=== PATIENT | male | born 1935 | race Caucasian/White ===

== ENCOUNTER 2018-12-30 09:55 | Inpatient (IN) ==
[2018-12-30 10:59] LABS: URINE SOURCE CLEAN CATCH
[2018-12-30 11:03] LABS: BASO# 0.01 X1000 (0.0-0.2); BASO% 0.1 % (0.0-0.8); HEMATOCRIT 37.6 % (42.0-52.0); HEMOGLOBIN 12.2 g/dL (14.0-18.0); IMM GRAN# 0.07 X1000 (0.0-0.04); IMM GRAN% 0.4 % (0.0-0.5); LYMPH# 1.46 X1000 (1.2-3.4); LYMPH% 8.3 % (20.5-51.1); MCH 30.2 PG (27-31); MCHC 32.4 g/dL (33-37); MCV 93.1 FL (81-99); MONO# 1.35 X1000 (0.11-0.59); MONO% 7.6 % (1.7-9.3); MPV 10.6 FL (7.4-10.4); NEUT# 14.79 X1000 (1.4-6.5); NEUT% 83.6 % (42.2-75.2); PLT 196 X1000 (130-400); RBC 4.04 XMIL (4.7-6.1); RDW 12.6 % (11.5-14.5); WBC 17.68 X1000 (4.8-10.8)
[2018-12-30 11:03] LABS: BILIRUBIN URINE NEGATIVE (NEGATIVE); BLOOD URINE NEGATIVE (NEGATIVE); COLOR YELLOW; GLUCOSE URINE NEGATIVE (NEGATIVE); KETONE URINE NEGATIVE (NEGATIVE); LEUKOCYTES URINE NEGATIVE (NEGATIVE); NITRITE URINE NEGATIVE (NEGATIVE); PROTEIN URINE TRACE mg/dL (NEGATIVE); SP GRAVITY URINE 1.014; TURBIDITY URINE CLEAR (CLEAR); UROBILINOGEN URINE NORMAL (NORMAL)
[2018-12-30 11:05] LABS: UR EPITHELIAL CELLS <10 /HPF (<10); URINE BACTERIA NEGATIVE /HPF; URINE RBC <10 /HPF (<10); URINE WBC <10 /HPF (<10)
[2018-12-30 11:15] LABS: ALB/GLOB RATIO 1.2; ALBUMIN 4.3 g/dL (3.5-5.0); CALCIUM 9.7 mg/dL (8.8-10.2); CREATININE 1.8 mg/dL (0.7-1.2); POTASSIUM 4.2 mmol/L (3.5-5.1); TOTAL BILIRUBIN 0.79 mg/dL (0.20-1.00); TOTAL PROTEIN 7.8 g/dL (6.3-8.3)
[2018-12-30 11:38] LABS: CK INDEX 3.6 (0.0-2.5); CK-MB 10.51 ng/mL (0.0-5.0)
--- NOTE | 2018-12-30 11:46 | EKG Report ---
Test Performed on : 12/30/2018 10:25:02 AM Test Reason : FALL Blood Pressure : / mmHG Vent. Rate : 064 BPM Atrial Rate : 065 BPM P-R Int : 000 ms QRS Dur : 116 ms QT Int : 556 ms P-R-T Axes : 000 -51 -56 degrees QTc Int : 573 ms Ventricular-paced rhythm with frequent AV dual-paced complexes Abnormal ECG When compared with ECG of 08-MAY-2017 05:32, Vent. rate has increased BY 4 BPM Unconfirmed Result
--- NOTE | 2018-12-30 11:49 | Diag Imaging Result Doc PS360 ---
ELBOW COMPLETE RIGHT - 12/30/2018 INDICATION: fall, trauma TECHNIQUE: Three views COMPARISON: 06/15/2014 FINDINGS: Bones are intact and normally aligned. Joint spaces and soft tissues are clear. IMPRESSION: Negative exam. Electronically signed by Momo Fisher 12/30/2018 11:47 AM
--- NOTE | 2018-12-30 11:50 | Diag Imaging Result Doc PS360 ---
ELBOW COMPLETE LEFT - 12/30/2018 INDICATION: fall, trauma TECHNIQUE: Three views COMPARISON: 08/18/2016 FINDINGS: Bones are intact and normally aligned. Joint spaces and soft tissues are clear. IMPRESSION: Negative exam. Electronically signed by Momo Fisher 12/30/2018 11:48 AM
--- NOTE | 2018-12-30 11:51 | Diag Imaging Result Doc PS360 ---
KNEE 3 VIEWS LEFT - 12/30/2018 INDICATION: fall, trauma TECHNIQUE: Three views COMPARISON: None FINDINGS: There has been total knee arthroplasty. Alignment is anatomic. No hardware fracture or loosening. There is advanced peripheral vascular disease of the femoral and popliteal arteries. IMPRESSION: No acute injury. Electronically signed by Momo Fisher 12/30/2018 11:49 AM
--- NOTE | 2018-12-30 11:52 | Diag Imaging Result Doc PS360 ---
KNEE 3 VIEWS RIGHT - 12/30/2018 INDICATION: fall, trauma TECHNIQUE: Three views COMPARISON: None FINDINGS: There has been total knee arthroplasty with patellar resurfacing. No hardware fracture or loosening. There is advanced peripheral vascular disease of the femoral and popliteal arteries. IMPRESSION: No acute injury. Electronically signed by Momo Fisher 12/30/2018 11:49 AM
--- NOTE | 2018-12-30 11:53 | Diag Imaging Result Doc PS360 ---
THORACIC SPINE - 12/30/2018 INDICATION: fall, pain TECHNIQUE: Four views COMPARISON: 05/24/2017 FINDINGS: Alignment is anatomic. Vertebral body heights and intervertebral disc spaces are preserved. No visible fracture or subluxation. Stable advanced multilevel degenerative disc disease. IMPRESSION: Degenerative disc disease. No acute injury. Electronically signed by Momo Fisher 12/30/2018 11:51 AM
[2018-12-30] MEDS ORDERED: ZOFRAN ODT PO ONE (12:48)
[2018-12-30] MEDS ORDERED: ROCEPHIN 1 GM in NS 50 ML IV ONE (13:33)
[2018-12-30] MEDS ORDERED: ASPIRIN PO STA (13:36)
--- NOTE | 2018-12-30 13:54 | Diag Imaging Result Doc PS360 ---
EXAM: CHEST-1 VIEW 12/30/2018 HISTORY: leukocytosis TECHNIQUE: AP portable upright at 1341 COMMENT: There is cardiomegaly and increased pulmonary vascularity. There is interstitial pulmonary edema and questionable alveolar opacity in the right upper lobe and left lower lobe which appears slightly worse than on 05/24/2017. IMPRESSION: Cardiomegaly with pulmonary edema plus minus pneumonia. Electronically signed by Jason Mcdaniel 12/30/2018 1:52 PM
[2018-12-30] MEDS ORDERED: 1/2 NS 1,000 ML IV ONE (13:55)
[2018-12-30] MEDS ORDERED: ROBITUSSIN-DM PO PRN (13:59)
[2018-12-30] MEDS ORDERED: MIRALAX PO PRN (13:59)
[2018-12-30] MEDS ORDERED: TYLENOL PO PRN (13:59)
[2018-12-30] MEDS ORDERED: ALBUTEROL NEB INH PRN (13:59)
--- NOTE | 2018-12-30 14:25 | CARDIOLOGY CONSULTATION ---
DATE: 12/30/2018 REASON FOR CONSULTATION: Cardiology was consulted for abnormal cardiac enzymes. HISTORY OF PRESENT ILLNESS: Mr. Dionicio Hall is an 83-year-old gentleman who has fallen at home at least on 3 occasions, once in his yard, the other time was at home yesterday. He fell at home in his den and laid there overnight ,as he did not want to come to the emergency room, and he could not get up, given his generalized arthritis and he has generalized body aches. His also states that he has had cough with some expectoration which was mucoid to mucopurulent, and he felt feverish. This was yesterday. As far as chest pains are concerned, he complains of generalized body ache and no definite chest discomfort. There was no history of loss of consciousness. He has a permanent pacemaker. As listed below. He does not complain of any focal weakness to suggest a CVA or TIA. He complains of having generalized weakness and lack of energy. REVIEW OF SYSTEMS: A 14 point review of system was done.Gastrointestinal System: There is no history of nausea. There is no history of vomiting. There is no history of hematemesis or melena. Central Nervous System: Generalized weakness. No focal weakness to suggest a CVA or TIA. Genitourinary System: There is no dysuria or hematuria. Respiratory System: As above. Cardiovascular System: Denies chest pain suggestive of angina. However, he has had some occasional episodes of chest pain in the past. HOME MEDICATION: List includes amlodipine 10 mg a day. Atorvastatin 40. Hydralazine 50 mg 3 times a day. Clonidine 0.1 twice daily. Isosorbide dinitrate 60 mg 3 times a day. Advair Diskus. Metoprolol 25 mg b.i.d. Fish oil concentrate 1000 mg. Enteric-coated aspirin 325 mg a day. Spironolactone 25. Finasteride 5. Lisinopril 5 b.i.d. Bicalutamide 50 mg a day. Nebulizers. Baclofen. Duloxetine 30 mg daily. PAST MEDICAL HISTORY: 1. The patient has a permanent atrial fibrillation status post [employer] pacemaker implanted 12/16/2011. The pacemaker interrogation on 11/19/2018 revealed appropriate function. 2. Last echocardiogram was on 07/18/2018. Normal left ventricular systolic function 65% to 70% with mild to moderate aortic stenosis. There was mild mitral regurgitation. Mild tricuspid regurgitation. There is no pericardial effusion. 3. He had a Cardiolite stress test done in July 2018, which revealed essentially normal post- stress myocardial perfusion. There is no evidence of ischemia. 4. History of diastolic dysfunction, diastolic heart failure. 5. Pneumonia, 2016. 6. COPD. 7. History of takotsubo syndrome in the past. 8. Sick sinus syndrome. 9. History of atrial fibrillation. Has had GI bleeding 11/11/2014. Since then, he has not been on anticoagulation therapy. 10. Carotid disease status post left carotid endarterectomy. 11. Renal insufficiency. 12. Sleep apnea. 13. Generalized osteoarthritis with thoracolumbar spondylosis. 14. History of TURP in the past. 15. Last cardiac catheterization, 08/02/2011. Patient has got proximal mid left anterior descending artery nonobstructive stenosis. PHYSICAL EXAMINATION: Blood pressure was 146/75. First and second heart sounds were heard. Jugular venous pressure was normal. There was a soft systolic murmur. Respiratory System: Distant breath sounds. A few scattered wheezes noted. Abdomen was soft, nontender. There was no guarding or rigidity. Bowel sounds were heard. Central Nervous System: Alert, oriented. Was moving all 4 extremities. Examination of his extremities revealed some bruising on his lopez and his hip. DIAGNOSTIC STUDIES: Sodium 140, potassium 4.2, BUN 43 creatinine 1.8. CK 292, CK index of 3.6 CK- MB of 10.51, troponin abnormal at 0.743. WBC 7.68, hemoglobin 12.2, hematocrit 37.6, platelet count of 196. Urine examination unremarkable. Elbow and knee x-rays were done which were negative. Thoracic spine x-ray revealed degenerative changes. No acute injury. ASSESSMENT AND PLAN: 1. Mr. Dionicio Hall is an 83-year-old gentleman with chronic atrial fibrillation, history of gastrointestinal bleed in the past, permanent pacemaker implantation, diastolic heart failure, generalized arthritis, peripheral vascular disease status post left carotid endarterectomy, chronic renal insufficiency, gout, benign prostatic hypertrophy. He comes with complaints of having fallen on it on 3 occasions. Yesterday, he was noted to be febrile by his family and lay on in the den overnight as he had fallen. He also had complained of cough with some expectoration. From a cardiac standpoint, his cardiac enzymes are abnormal. Electrocardiogram revealed a paced rhythm. However compared to previous electrocardiogram, there was T-wave inversion in the anterior leads. He does not complain of chest pain. Given the extent of cardiac enzymes, I cannot rule out a non-Q-wave myocardial infarction. We will get serial cardiac enzymes. We will get an echocardiogram to assess cardiac and valvular function. We will restart all his home medications in addition to aspirin. 2. He has renal insufficiency which has been chronic with worsening of his renal function. He is probably dehydrated we will give him 1 L of IV fluids, gentle hydration. 3. He was noted to be disoriented today by his family as well, and given his cough with mucoid to mucopurulent expectoration with elevated white count, he may have associated respiratory tract infection so we will get a CT scan without contrast of his chest and CT scan of his head as well. 4. Hypertension. Continue with his home medications. We will hold his lisinopril and spironolactone at the present time. We will continue with his beta blockers. 5. He has chronic obstructive pulmonary disease and inhalers. Would recommend continue with his medications. 6. Hyperlipidemia. As he is on atorvastatin, would recommend continuing that medication. Thank you for the consult. We will follow hospital course. cc: Deondre Person MD
--- NOTE | 2018-12-30 14:27 | Diag Imaging Result Doc PS360 ---
EXAM: CT HEAD W/O CONTRAST 12/30/2018 HISTORY: confusion, falls TECHNIQUE: This exam was performed using automated exposure control, adjustment of mA or kV according to patient size, and/or use of iterative reconstruction technique. COMMENT: There are calcifications in the vertebral and internal carotid arteries. There is moderate generalized cerebral atrophy. There is no evidence of mass effect, bleed, or abnormal extra-axial fluid collection. Compared to the previous examination of 06/17/2014, the ventricular size has increased slightly with the atrium of the left lateral ventricle measuring 22 mm compared to slightly less than 18 mm previously. The third ventricle has not changed appreciably in size. The fourth ventricle is if anything somewhat smaller than previously. IMPRESSION: Slightly increased size of the lateral ventricles compared to 06/17/2014. This may be attributable to slightly increased cerebral atrophy, however the possibility of normal pressure hydrocephalus cannot be entirely excluded. Electronically signed by Jason Mcdaniel 12/30/2018 2:24 PM
--- NOTE | 2018-12-30 14:30 | Diag Imaging Result Doc PS360 ---
EXAM: CT THORAX W/O CONTRAST 12/30/2018 HISTORY: Dyspnea, cough, fever TECHNIQUE: This exam was performed using automated exposure control, adjustment of mA or kV according to patient size, and/or use of iterative reconstruction technique. COMMENT: There are patchy groundglass opacities bilaterally but particularly in the right upper lobe and left lower lobe. There were similar opacities present on the previous study of 06/09/2016 although in a different distribution predominantly on the left at that time. There are small bilateral pleural effusions which are somewhat larger than on the previous study. There is aorticopulmonary window and precarinal adenopathy. This is slightly worse than on the previous study. One of the precarinal nodes now measures almost 16 mm in anterior posterior dimension versus less than 14 mm previously. There is extensive coronary calcification and cardiomegaly. There is a pacemaker with a lead in the right ventricle. The regional skeleton is stable in appearance. IMPRESSION: Patchy pneumonia. Worsened mediastinal adenopathy. Bilateral pleural effusions. Electronically signed by Jason Mcdaniel 12/30/2018 2:28 PM
--- NOTE | 2018-12-30 17:23 | HISTORY AND PHYSICAL ---
CHIEF COMPLAINT: Falls. HISTORY OF PRESENT ILLNESS: The patient is an 83-year-old white male followed in my medical practice, who presented to the ER by ambulance this morning. and daughter relate most of the history as patient has had some mild confusion. He is able to add quite a bit of information as well but he is a poor historian. There is a 2-week history of increasing cough, productive initially of some green phlegm and some increasing shortness of breath, especially over the past 3 days, and cough has been slightly productive of some bloody phlegm in the past 3 days per patient report. He may have had some fever for 2 to 3 days. He has had frequent falls over the last 2 weeks, the last 1 occurring last evening where he fell in his bedroom and could not get off of the floor. His passed him a blanket and a pillow as he could not get himself up and he refused his to call the ambulance for evaluation. He did allow that this morning as he could not get up. He has had some mild shortness of breath as well. MEDICATIONS: Prior to admission are Norvasc 10 mg p.o. daily, Lipitor 40 mg p.o. at bedtime, hydralazine 50 mg t.i.d., Casodex, clonidine 0.1 mg p.o. b.i.d., Icar C 1 p.o. b.i.d., isosorbide dinitrate 60 mg p.o. t.i.d., Advair 250/50 one puff b.i.d., metoprolol 25 mg p.o. b.i.d., fish oil 1000 mg p.o. daily, aspirin 325 mg p.o. daily, Aldactone 25 mg p.o. daily, Proscar 5 mg p.o. daily, lisinopril 5 mg p.o. b.i.d., MiraLAX 17 g in 8 ounces of water daily, albuterol via nebulizer q.4 hours p.r.n. wheezes or cough, garlic 1 p.o. daily, Osteo Bi-Flex at bedtime, baclofen 10 mg half a tablet p.o. t.i.d., Cymbalta 30 mg p.o. daily. ALLERGIES: NKDA. PAST MEDICAL HISTORY: 1. Hypertension, diagnosed in 1984. 2. Chronic atrial fibrillation, diagnosed 1997. 3. CHF. 4. Osteoarthritis. 5. BPH. 6. Mild right renal artery stenosis. 7. Moderate coronary artery disease, diagnosed July 2008. 8. Hyperlipidemia. 9. CLEMENCIA on CPAP 2011. 10. Permanent pacemaker. 11. Vitamin B12 deficiency, on chronic monthly injections. 12. Moderate left carotid stenosis, diagnosed June 2012. 13. 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 14. Chronic renal insufficiency. 15. Prostate cancer, diagnosed May 2017 with chemotherapy treatment. 16. Rbdu-dy-jxkjsxmd aortic stenosis, diagnosed July 2018. PAST SURGICAL HISTORY: 1. Left knee arthroscopy. 2. Left TKR 2005. 3. Right TKR. 4. Left carotid endarterectomy 2009. 5. Excision of SCC left forearm April 2013. 6. TURP May 2017. IMMUNIZATIONS: Pneumovax 23 given March 2004 and March 2009, Prevnar 13 given May 05, 2015, Td given August 2016, influenza given April 2018. FAMILY HISTORY: Notable for hypertension in his mother and brother. No diabetes or MIs in the family. Sister with gallbladder cancer. Mother with skin cancer. Stroke in his grandfather at age 70. SOCIAL HISTORY: The patient lives in [place]. He is x2. Quit smoking in 1991 but has a 55 pack year history of smoking. Has 3 children and 4 step children. 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 Occasional wine intake. REVIEW OF SYSTEMS: As above. PHYSICAL EXAMINATION: VITAL SIGNS: Afebrile, pulse 75, respirations 28, blood pressure 146/88, O2 saturation 88 to 90% on room air. GENERAL: Mild to moderately obese white male. SKIN: Abrasion prominent to the right knee. No signs of infection there. Chronic venous stasis dermatitis with redness over his left lopez and lower extremity, not severe. Bruising diffuse over his arms and somewhat over his legs, but mainly over the arms. HEENT: PERRL, EOMI. Sclerae anicteric. OP no redness. Tongue in the midline. NECK: No LA, TMG, or bruits. Minimal JVD. CV: Irregularly irregular. LUNGS: With rhonchi, crackles, and wheezes bilaterally, right greater than left. BACK: NT. ABDOMEN: Soft, protuberant, NT, ND. No mass. No HSM. GENITOURINARY/RECTAL: Deferred. EXTREMITIES: No major lower extremity edema. OA changes of knees and diffuse noted. NEUROLOGIC: Cranial nerves 2-12 are intact. He moves all extremities well. No focal deficits identified but the patient may be minimally confused. LAB DATA: Shows white count of 17.68, hemoglobin 12.2, hematocrit 37.6, MCV 93, platelets 196,000, neutrophils 83.6, lymphocytes 8.3, monocytes 7.6. Sodium 142, potassium 4.2, chloride 19, BUN 43, creatinine 1.8, which is actually down from his baseline of around 2.1, glucose 142, calcium 9.7, total bilirubin 0.79, AST 27, ALT 12, alkaline phosphatase 70. Total CK 292, CK index 3.6, CK-MB 10.5. Troponin 0.743. ProBNP greater than 35,000. Total protein 7.8, albumin 4.3. Urinalysis is negative. CT scan of the head without contrast reveals slightly increased size of the lateral ventricles compared to June 2014, possibly attributable to increased cerebral atrophy; however, possibility of normal-pressure hydrocephalus cannot be entirely excluded. Chest x-ray reveals cardiomegaly with pulmonary edema plus-minus pneumonia. CT thorax reveals patchy pneumonia, worsened mediastinal adenopathy, bilateral pleural effusions. EKG shows ventricular paced rhythm with atrial fibrillation, no RVR. Thoracic spine x-ray, degenerative disk disease, no acute injury. Elbow x-rays bilaterally negative. Bilateral knee x-rays negative. ASSESSMENT: 1. Frequent falls. 2. Elevated cardiac enzymes and troponin level. 3. Bilateral pneumonia. 4. Congestive heart failure. 5. Chronic atrial fibrillation, not on anticoagulation due to history of frequent falls. 6. Venous stasis dermatitis, left lower extremity. 7. Abrasions, right knee. 8. Multiple contusions. 9. Permanent pacemaker. 10. Moderate coronary artery disease with negative stress testing by Cardiology, Dr. Melendez, in the past 6 months. 11. Hypertension. 12. Hyperlipidemia. 13. Chronic renal insufficiency with history of mild right renal artery stenosis. 14. History of carotid stenosis, status post left CEA 2009. 15. Prostate cancer, on Casodex per Dr. Velasco. 16. Mild to moderate aortic stenosis. 17. Obstructive sleep apnea, on CPAP. 18. Osteoarthritis. PLAN: The patient has received Rocephin injection in the emergency room. We will check blood cultures x2. Serial cardiac enzymes and troponin levels have been ordered by Cardiology who have seen the patient in consultation, appreciate their care immensely. Continue his home medications. We will give him DuoNeb nebulizer treatments. Continue his Advair. Start low-dose Solu-Medrol IV. We will continue antibiotics but may broaden out coverage at this point. cc: Doron Rowe MD
[2018-12-30] MEDS: ISORDIL PO SCH (17:33)
[2018-12-30] MEDS: NORVASC PO SCH (17:34)
[2018-12-30] MEDS: SOLU-MEDROL IV SCH (17:35)
[2018-12-30] MEDS: LEVAQUIN 250 MG/D5W 250 MG/50 ML IVPB IV SCH (17:35)
[2018-12-30] MEDS: APRESOLINE PO SCH (17:37)
[2018-12-30] MEDS: LIORESAL PO SCH (17:37)
[2018-12-30 18:42] LABS: CK INDEX 3.3 (0.0-2.5); CK-MB 10.8 ng/mL (0.0-5.0)
[2018-12-30] MEDS ORDERED: LASIX IV ONE ×2 (18:56→23:45)
[2018-12-30] MEDS: DUONEB (A & A) INH SCH ×2 (20:10→23:52)
[2018-12-30] MEDS: ADVAIR 250/50 DISKUS INH SCH (20:35)
[2018-12-30] MEDS ORDERED: CATAPRES PO SCH (21:00)
[2018-12-30] MEDS ORDERED: LIPITOR PO SCH (21:00)
[2018-12-30] MEDS ORDERED: LOPRESSOR PO SCH ×2 (21:00)
--- NOTE | 2018-12-30 23:38 | ECHO REPORT ---
ORDER DATE: 12/30/2018 MEASUREMENTS: Septal thickness 1.4, left ventricular internal diameter in diastole 5.6, left atrium 4.9, aortic root 3.5. SUMMARY: 1. Technically difficult study due to limited acoustic window quality. 2. Moderate sclerotic change of trileaflet aortic valve demonstrated with reduced aortic valve leaflet mobility. The peak gradient across aortic valve is 45 mmHg with a mean gradient of 20 mmHg. The calculated aortic valve area by Doppler is 1.1 cm2. Moderate aortic stenosis is suggested. There is trace aortic regurgitation. Mitral and tricuspid valves are without evidence of structural abnormality while pulmonic valve is not well demonstrated. There is mild mitral regurgitation and mild tricuspid regurgitation. Estimated systolic PA pressure by Doppler is 55 to 60 mmHg suggesting moderate pulmonary hypertension. The aortic root is normal in size. 3. Upper normal left ventricular chamber size with mild concentric left hypertrophy is suggested. Estimated left ejection fraction is 30 to 35 percent in setting of akinesis of the mid to apical anteroseptal region, mid to apical anterior wall, mid to apical inferior wall and mid to apical inferolateral wall. The apex is akinetic as well. Mild to moderate biatrial enlargement is demonstrated. The right ventricle is normal in size with grossly preserved right ventricular systolic function. Pacemaker lead is evident in right ventricle. 4. No pericardial effusion. 5. Appearance of inferior vena cava suggests normal central venous pressure. 6. Rhythm during study appears to be atrial fibrillation. cc: MD Chelle Telles PA Stephen W. Harbin, MD
[2018-12-31] MEDS: PROSCAR PO SCH ×2 (00:41→20:22)
[2018-12-31] MEDS: ICAR-C PO SCH ×3 (00:41→20:21)
[2018-12-31] MEDS: LOPRESSOR PO SCH ×4 (00:42→20:22)
[2018-12-31] MEDS: LOVENOX SUBQ SCH ×2 (00:42→12:32)
[2018-12-31] MEDS: PRINIVIL PO SCH ×2 (00:42→10:37)
[2018-12-31] MEDS: LIPITOR PO SCH ×2 (00:42→20:21)
[2018-12-31] MEDS: GLUCOSAMINE 500 MG/CHONDROITIN 400 MG PO SCH ×2 (00:42→20:22)
[2018-12-31] MEDS: HUMULIN R SUBQ SCH ×5 (00:57→20:57)
[2018-12-31] MEDS: SOLU-MEDROL IV SCH ×3 (00:57→16:16)
[2018-12-31 02:12] LABS: CK INDEX 3.9 (0.0-2.5); CK-MB 10.28 ng/mL (0.0-5.0)
[2018-12-31] MEDS: DUONEB (A & A) INH SCH ×6 (03:41→23:15)
--- NOTE | 2018-12-31 07:37 | EKG Report ---
Test Performed on : 12/31/2018 07:17:24 AM Test Reason : dyspnea Blood Pressure : / mmHG Vent. Rate : 060 BPM Atrial Rate : 060 BPM P-R Int : 000 ms QRS Dur : 212 ms QT Int : 648 ms P-R-T Axes : 000 -80 223 degrees QTc Int : 648 ms Wide QRS rhythm. Left axis deviation Left ventricular hypertrophy with QRS widening Possible Lateral infarct , age undetermined Inferior infarct , age undetermined Abnormal ECG When compared with ECG of 30-DEC-2018 10:25, (Unconfirmed) Wide QRS rhythm. has replaced Electronic ventricular pacemaker Confirmed by Antonieta GROSSMAN, Corby Acuna ([id number]) on 12/31/2018 5:31:12 PM
[2018-12-31 07:43] LABS: BASO# 0.01 X1000 (0.0-0.2); BASO% 0.1 % (0.0-0.8); HEMATOCRIT 34.2 % (42.0-52.0); IMM GRAN# 0.03 X1000 (0.0-0.04); IMM GRAN% 0.2 % (0.0-0.5); LYMPH% 5.5 % (20.5-51.1); MCH 30.1 PG (27-31); MCHC 32.2 g/dL (33-37); MCV 93.4 FL (81-99); MONO# 0.23 X1000 (0.11-0.59); MONO% 1.8 % (1.7-9.3); MPV 10.6 FL (7.4-10.4); NEUT# 11.66 X1000 (1.4-6.5); NEUT% 92.4 % (42.2-75.2); PLT 179 X1000 (130-400); RBC 3.66 XMIL (4.7-6.1); RDW 12.4 % (11.5-14.5); WBC 12.63 X1000 (4.8-10.8)
[2018-12-31] MEDS: ADVAIR 250/50 DISKUS INH SCH ×2 (07:53→19:20)
[2018-12-31 08:01] LABS: CALCIUM 9.2 mg/dL (8.8-10.2); CREATININE 2.3 mg/dL (0.7-1.2); MAGNESIUM 2.4 mg/dL (1.5-2.7); POTASSIUM 4.4 mmol/L (3.5-5.1)
[2018-12-31 08:25] LABS: BANDS 2 % (0-1); HYPOCHROM 1+; LYMPHS 14 % (21-51); POIKILOCYTOSIS 1+; SEGS 84 % (42-75)
[2018-12-31] MEDS ORDERED: ALDACTONE PO SCH (09:00)
[2018-12-31] MEDS ORDERED: NORVASC PO SCH (09:00)
[2018-12-31] MEDS ORDERED: ASPIRIN PO SCH (09:00)
[2018-12-31] MEDS ORDERED: GARLIC PO SCH (09:00)
[2018-12-31] MEDS: CASODEX PO SCH (10:34)
[2018-12-31] MEDS: NORVASC PO SCH (10:35)
[2018-12-31] MEDS: CYMBALTA PO SCH (10:35)
[2018-12-31] MEDS: APRESOLINE PO SCH (10:35)
[2018-12-31] MEDS: FISH OIL CONCENTRATE PO SCH (10:35)
[2018-12-31] MEDS: LIORESAL PO SCH ×3 (10:36→20:24)
[2018-12-31] MEDS: ASPIRIN PO SCH (10:40)
--- NOTE | 2018-12-31 11:32 | PROGRESS NOTE ---
DATE: 12/31/2018 SUBJECTIVE: Patient feels better improvement in breathing noted. Blood pressure running low in the 90s. OBJECTIVE: T-max 100.6 degrees, T current 97.5, pulse 76, respirations 16, blood pressure 93/53, and O2 saturation on 3 L 95% CV: Irregularly irregular. Lungs: Mild crackles bilaterally, but much improved. Abdomen: Soft, protuberant, and nontender. Extremities: No edema. Venous stasis dermatitis left lopez noted. Abrasion right knee noted healing without signs of infection. Neurologic: Nonfocal. Cranial nerves intact. LABORATORY: Sodium 140, potassium 4.4, chloride 107, CO2 of 19, BUN 61, creatinine 2.3, glucose 193, calcium 9.2, and magnesium 2.4. White count down from 17 to 12.6, hemoglobin 11, platelets 179,000, neutrophils 92, and lymphocytes 5.5. Cardiac enzymes show total CKs up to 329, CK-MB 10.8. CK index 3.3. Troponin remains elevated at 0.72. ProBNP yesterday greater than 35,000. Urinalysis negative. Echocardiogram done last evening reveals EF of 30 to 35 percent with moderate , mild MR and TR, moderate pulmonary hypertension, akinesis of the mid to apical anteroseptal region, mid to apical anterior wall, mid apical inferior wall, and mid to apical inferolateral wall apex akinetic as well. Mild to mild to moderate biatrial enlargement. LV is normal in size and grossly preserved right ventricular systolic function. Pacemaker in place ASSESSMENT: 1. Bilateral pneumonia. 2. Acute on chronic systolic congestive heart failure. 3. Elevated cardiac enzymes and troponin level followed by Cardiology. 4. Frequent falls. 5. Moderate aortic stenosis. 6. Mild MR and TR. 7. Chronic atrial fibrillation, off anticoagulation due to frequent falls, now on full dose Lovenox per Cardiology. 8. Venous stasis dermatitis left lower extremity. 9. Right knee abrasion. 10. Multiple contusions. 11. Permanent pacemaker. 12. Moderate CAD. 13. Hypertension. 14. Hyperlipidemia. 15. Chronic renal insufficiency with baseline creatinine around 2.1. 16. History of mild renal artery stenosis on the right. 17. History of carotid stenosis on the left, status post CEA 2009. 18. Prostate cancer on Casodex per Dr. Velasco. 19. CLEMENCIA on CPAP. 20. Osteoarthritis. PLAN: Continue nebulizer treatments of DuoNeb's. Continue Rocephin. We are holding his Norvasc and hydralazine and lisinopril at this time. We will continue the metoprolol and Lasix, Imdur and Lovenox as per Cardiology. Continue Advair and Robitussin DM. We are monitoring his blood sugars and give him SSI as required due to the steroids that were given him as well, and that has seemed to help quite a bit. We will repeat chest x-ray and follow his labs again in the morning. cc: Doron Rowe MD
--- NOTE | 2018-12-31 11:32 | Diag Imaging Result Doc PS360 ---
CHEST-PORTABLE - 12/31/2018 INDICATION: chf/pna COMPARISON: 12/30/2018 FINDINGS: Stable pacemaker. Stable significant cardiomegaly and pulmonary vascular congestion. There is a focal infiltrate in the left lung base stable from prior. There may also be interstitial pulmonary edema. IMPRESSION: No change from prior. Electronically signed by Momo Fisher 12/31/2018 11:30 AM
[2018-12-31] MEDS: PATIENT'S OWN MED PO SCH (11:52)
[2018-12-31] MEDS: ISORDIL PO SCH ×3 (12:32→20:29)
[2018-12-31] MEDS: ROCEPHIN 1 GM in NS 50 ML IV SCH ×2 (12:38→15:43)
--- NOTE | 2018-12-31 15:01 | CARDIOLOGY PROGRESS NOTE ---
DATE: 12/31/2018 SUBJECTIVE: Patient feels better. His breathing has improved. Does not complain of having any chest pain. He mainly complains of having severe joint pains on both sides on his feet and knees. His shortness of breath has also improved. Does not complain of any palpitations. OBJECTIVE: Vital signs: T-max was 100 degrees, current temperature 97.5 degrees, blood pressure 93/53, oxygen saturations 95% on room air. Cardiovascular: First and second heart sounds were heard. There was a soft systolic murmur. Lungs: There were crackles bilaterally scattered. Abdomen: Soft, nontender. There was no guarding or rigidity. Bowel sounds were heard. Extremities: No pedal edema. Central nervous system: Alert, oriented. Was moving all 4 extremities. LABORATORY EXAMINATION AND DIAGNOSTICS: Revealed a sodium 140, potassium 4.4, BUN 61, creatinine 2.3, glucose was 193. Magnesium 2.4. Cardiac enzymes: CK is 329, CK-MB 10.8, CK index of 3.3, troponin elevated at 0.72[place] [address]. Echocardiogram revealed ejection fraction of 30 to 35 percent with moderate aortic stenosis. There was mild apical anteroseptal hypokinesis. CT of the chest revealed patchy pneumonia with bilateral pleural effusion. Opacities noted were similar to studies on 06/09/2016. However, there is patchy pneumonia in the right upper lobe and the left upper lobe. PROBLEM LIST: 1. Bilaterally patchy pneumonia, on antibiotics. 2. The patient has had frequent falls. 3. Moderate aortic stenosis. 4. Non Q-wave myocardial infarction with left ventricular dysfunction, a change from recent echocardiogram done in July 2008. The patient has non-Q-wave myocardial infarction. I had a detailed discussion with patient's son in addition with the patient regarding further testing. At the present time, patient does not complain of chest pain and he would like to continue with medical management. He wants to defer invasive angiography at the present time. 5. He has a permanent pacemaker. 6. Chronic renal insufficiency with an increase in BUN to 61, baseline creatinine around 2. 7. History of carotid stenosis of the left status post carotid endarterectomy 2009. 8. Prostate cancer, on Casodex. 9. Multiple generalized joint pains in his lower extremities, ankles, long- standing. RECOMMENDATIONS: 1. From a cardiac standpoint, his blood pressure was low. We will discontinue his clonidine, amlodipine and LUNA inhibitors as his renal function has worsened. He was given Lasix 40 mg IV given his pleural effusions as well. We will continue with aspirin 81 mg a day. He has had GI bleeding in the past. We will put him on Protonix. I will also place him on Plavix 75 mg, given nonqmi, a day and decrease his Lovenox for DVT prophylaxis. 2. Hypertension. Changes to medications as above given his low blood pressure. 3. Chronic obstructive pulmonary disease. He is on nebulizers. Continue with medications. 4. He is on Rocephin for pneumonia. We will continue with the same. We will follow hospital course. cc: MD Doron Eason MD MTDD
--- NOTE | 2018-12-31 15:37 | Diag Imaging Result Document ---
PROCEDURE NAME: MYOCARDIAL PERFU SCAN, REST - 12/31/2018 SUMMARY: This is a nuclear scan. Resting myocardial perfusion scan was done. The patient has non-Q-wave myocardial infarction. Total of 36.1 mCi of Cardiolite was injected. The resting SPECT images were obtained. Images revealed large defect in the inferior wall and in the inferoseptal and apical wall. Left ventricular ejection fraction by gated SPECT by visual estimation was 35 to 40 percent. There is inferior wall and apical hypokinesis. CONCLUSIONS: 1. Resting myocardial perfusion images revealed large defect in the inferior, inferoseptal and apical wall compared to stress test in July 2018. There is significant change noted in the inferior wall, inferoseptal and apical wall. 2. Left ventricular ejection fraction estimated at 35 to 40 percent. cc: Deondre Person MD
[2018-12-31] MEDS: LEVAQUIN 250 MG/D5W 250 MG/50 ML IVPB IV SCH (16:16)
[2019-01-01] MEDS: SOLU-MEDROL IV SCH ×3 (00:22→23:19)
[2019-01-01] MEDS: DUONEB (A & A) INH SCH ×6 (03:26→23:05)
[2019-01-01] MEDS: HUMULIN R SUBQ SCH ×4 (06:41→23:20)
[2019-01-01] MEDS: PROTONIX PO SCH (06:41)
--- NOTE | 2019-01-01 07:14 | EKG Report ---
Test Performed on : 01/01/2019 06:12:12 AM Test Reason : dyspnea Blood Pressure : / mmHG Vent. Rate : 062 BPM Atrial Rate : 077 BPM P-R Int : 000 ms QRS Dur : 208 ms QT Int : 568 ms P-R-T Axes : 000 -77 125 degrees QTc Int : 576 ms Wide QRS rhythm. with frequent premature ventricular complexes. Left axis deviation Left bundle branch block Abnormal ECG When compared with ECG of 31-DEC-2018 07:17, premature ventricular complexes. are now present Confirmed by Antonieta GROSSMAN, Corby Acuna ([id number]) on 01/01/2019 3:52:46 PM
[2019-01-01] MEDS: ADVAIR 250/50 DISKUS INH SCH ×2 (07:51→19:10)
[2019-01-01] MEDS ORDERED: ZOFRAN IV PRN (08:28)
[2019-01-01 08:43] LABS: BASO# 0.01 X1000 (0.0-0.2); BASO% 0.1 % (0.0-0.8); HEMATOCRIT 29.7 % (42.0-52.0); HEMOGLOBIN 9.7 g/dL (14.0-18.0); IMM GRAN# 0.08 X1000 (0.0-0.04); IMM GRAN% 0.4 % (0.0-0.5); LYMPH# 0.87 X1000 (1.2-3.4); LYMPH% 4.8 % (20.5-51.1); MCHC 32.7 g/dL (33-37); MONO# 0.75 X1000 (0.11-0.59); MONO% 4.1 % (1.7-9.3); MPV 11.3 FL (7.4-10.4); NEUT# 16.59 X1000 (1.4-6.5); NEUT% 90.6 % (42.2-75.2); PLT 214 X1000 (130-400); RBC 3.23 XMIL (4.7-6.1)
--- NOTE | 2019-01-01 09:05 | PROGRESS NOTE ---
DATE: 01/01/2019 SUBJECTIVE: Patient overall feeling some better, less cough improved breathing. He did have some prominent nausea last night after eating his supper. He never had vomiting, felt like the food did not agree with him. Denies chest pain. OBJECTIVE: Vital Signs: Afebrile, pulse 61, respirations 17, blood pressure 98/50, O2 saturation on 3 L 94 to 99 percent. At one point, 98% on room air is listed on the chart. CV: Irregularly irregular. Lungs: Minimal crackles at the lung bases. Very rare wheezes, much improved from admission. No rhonchi. Good air movement. Abdomen: Soft, nontender, nondistended. Extremities: No calf tenderness, cords or edema. Venous stasis dermatitis changes over the left lopez look some better since admission. Extremities: Right lower extremity: No stasis dermatitis, abrasion right knee healing. Neurologic: Cranial nerves are intact. No focal deficits. Moves all extremities well. LAB DATA: Still pending due to a computer glitch this morning. ASSESSMENT: 1. Bilateral pneumonia. 2. Acute on chronic systolic congestive heart failure. 3. Non-Q-wave myocardial infarction per Cardiology with patient desiring medical treatment rather than pursuing left heart catheterization. 4. Frequent falls. 5. Moderate aortic stenosis. 6. Mild mitral regurgitation tricuspid regurgitation. 7. Chronic atrial fibrillation on Plavix and aspirin therapy and not on full anticoagulation due to frequent falls and history of bleeding in the past, intestinal. 8. Venous stasis dermatitis, left lower extremity. 9. Right knee abrasion. 10. Multiple contusions, improving. 11. Permanent pacemaker. 12. Moderate coronary artery disease. 13. Hypertension. 14. Hyperlipidemia. 15. Chronic renal insufficiency with baseline creatinine around 2.1. 16. History of mild right renal artery stenosis. 17. History of left carotid endarterectomy and carotid stenosis 2009. 18. Prostate cancer on Casodex per Dr. Velasco. 19. Obstructive sleep apnea. 20. Osteoarthritis. PLAN: Continue DuoNebs, IV Solu-Medrol, which has seemed to help a great deal with the wheezing and has cleared his lungs quite a bit. He remains on Rocephin and low-dose Levaquin. Will give Zofran as needed for nausea. He is being held in regard to his Norvasc, hydralazine and lisinopril due to low blood pressures, but remains on Imdur and low-dose metoprolol. He remains on Advair and his Robitussin DM to help with pulmonary toilet. He is on DVT prophylactic doses of Lovenox for Cardiology. Tomorrow if he continues to do well, we will start to wean the steroids. Physical therapy is working with the patient. We discussed home health care versus rehabilitation, and the patient wishes to consult with his family regarding that. He declines for me to start that process at this point. Continue physical therapy in the hospital. Repeat chest x-ray and labs a.m. tomorrow. cc: Doron Rowe MD
[2019-01-01 09:06] LABS: CALCIUM 8.9 mg/dL (8.8-10.2); CREATININE 3.7 mg/dL (0.7-1.2); POTASSIUM 4.3 mmol/L (3.5-5.1)
[2019-01-01 09:14] LABS: BANDS 5 % (0-1); LYMPHS 2 % (21-51); MONO 4 % (1-9); SEGS 89 % (42-75)
[2019-01-01] MEDS: CYMBALTA PO SCH (09:45)
[2019-01-01] MEDS: ICAR-C PO SCH ×2 (09:45→23:20)
[2019-01-01] MEDS: FISH OIL CONCENTRATE PO SCH (09:45)
[2019-01-01] MEDS: CASODEX PO SCH (09:45)
[2019-01-01] MEDS: PLAVIX PO SCH (09:45)
[2019-01-01] MEDS: ASPIRIN PO SCH (09:45)
[2019-01-01] MEDS: LOPRESSOR PO SCH ×2 (09:46→23:20)
[2019-01-01] MEDS: LOVENOX SUBQ SCH ×3 (09:46→10:46)
[2019-01-01] MEDS: ISORDIL PO SCH ×3 (09:46→16:53)
[2019-01-01] MEDS: LIORESAL PO SCH ×3 (09:46→16:53)
[2019-01-01] MEDS: PATIENT'S OWN MED PO SCH (11:51)
[2019-01-01] MEDS: ROCEPHIN 1 GM in NS 50 ML IV SCH (13:44)
[2019-01-01] MEDS: GLUCOSAMINE 500 MG/CHONDROITIN 400 MG PO SCH (23:20)
[2019-01-01] MEDS: PROSCAR PO SCH (23:20)
[2019-01-01] MEDS: LIPITOR PO SCH (23:20)
[2019-01-02] MEDS: DUONEB (A & A) INH SCH ×6 (03:10→23:15)
[2019-01-02] MEDS: PROTONIX PO SCH (06:25)
[2019-01-02] MEDS: HUMULIN R SUBQ SCH ×4 (06:26→22:24)
--- NOTE | 2019-01-02 07:26 | EKG Report ---
Test Performed on : 01/02/2019 07:19:09 AM Test Reason : dyspnea Blood Pressure : / mmHG Vent. Rate : 060 BPM Atrial Rate : 050 BPM P-R Int : 000 ms QRS Dur : 206 ms QT Int : 558 ms P-R-T Axes : 000 -72 093 degrees QTc Int : 558 ms Wide QRS rhythm. with premature ventricular complexes. or fusion complexes Left axis deviation Left bundle branch block Abnormal ECG When compared with ECG of 01-JAN-2019 06:12, fusion complexes are now present Confirmed by Antonieta GROSSMAN, Corby Acuna ([id number]) on 01/02/2019 5:09:52 PM
[2019-01-02 07:43] LABS: BASO# 0.02 X1000 (0.0-0.2); BASO% 0.1 % (0.0-0.8); HEMATOCRIT 29.9 % (42.0-52.0); HEMOGLOBIN 9.7 g/dL (14.0-18.0); IMM GRAN# 0.38 X1000 (0.0-0.04); IMM GRAN% 2.1 % (0.0-0.5); LYMPH# 0.83 X1000 (1.2-3.4); LYMPH% 4.7 % (20.5-51.1); MCH 29.8 PG (27-31); MCHC 32.4 g/dL (33-37); MONO# 0.86 X1000 (0.11-0.59); MONO% 4.9 % (1.7-9.3); MPV 11.2 FL (7.4-10.4); NEUT# 15.64 X1000 (1.4-6.5); NEUT% 88.2 % (42.2-75.2); PLT 241 X1000 (130-400); RBC 3.25 XMIL (4.7-6.1); RDW 12.2 % (11.5-14.5); WBC 17.73 X1000 (4.8-10.8)
[2019-01-02] MEDS: ADVAIR 250/50 DISKUS INH SCH ×2 (07:48→19:50)
[2019-01-02 08:07] LABS: BANDS 3 % (0-1); LYMPHS 4 % (21-51); MONO 4 % (1-9); SEGS 88 % (42-75)
[2019-01-02 08:20] LABS: CALCIUM 8.9 mg/dL (8.8-10.2); CREATININE 4.5 mg/dL (0.7-1.2); POTASSIUM 4.5 mmol/L (3.5-5.1)
[2019-01-02] MEDS ORDERED: MIRALAX PO SCH (08:45)
--- NOTE | 2019-01-02 09:01 | PROGRESS NOTE ---
DATE: 01/02/2019 SUBJECTIVE: Patient doing well, breathing well, lying flat. Complains of a little back discomfort. Complains of mild constipation. Last BM just over 24 hours ago as documented on the chart. OBJECTIVE: Afebrile, pulse 70, respirations 22, blood pressure 113/56, O2 saturation on room air of 96%. CV: Irregularly irregular. Lungs: Clear. Abdomen: Soft, nontender, nondistended. Extremities: No edema. Venous stasis dermatitis, left lopez, improving and mild to moderate. Neurologic: Cranial nerves are intact. Nonfocal. White count 17,000 on steroid administration, hemoglobin 9.7, platelets 241,000, neutrophils 88, lymphocytes 4.7. Sodium 137, potassium 4.5, chloride 103, CO2 of 16, BUN 120, creatinine 4.5, glucose 204, calcium 8.9. Blood sugars in the low 200s on steroids. Chest x-ray currently pending. ASSESSMENT: 1. Bilateral pneumonia. 2. Prerenal azotemia. 3. Acute on chronic systolic congestive heart failure, now well compensated. 4. Non-Q wave myocardial infarction, with cardiology and patient pursuing medical treatment as patient declines pursuing left heart catheterization. 5. Frequent falls. 6. Moderate aortic stenosis. 7. Mild mitral regurgitation and tricuspid regurgitation. 8. Chronic atrial fibrillation, on Plavix and aspirin therapy. Not on other anticoagulant due to frequent falls and history of gastrointestinal bleeding in the past. 9. Venous stasis dermatitis, left lower extremity, stable. 10. Right knee abrasion, resolving. 11. Multiple contusions, improved. 12. Permanent pacemaker. 13. Moderate coronary artery disease. 14. Hypertension. 15. Hyperlipidemia. 16. Chronic renal insufficiency, now with prerenal azotemia, prominent. 17. Mild right renal artery stenosis. 18. History of left carotid endarterectomy and carotid stenosis in 2009. 19. Prostate cancer, on Casodex per Dr. Velasco. 20. Obstructive sleep apnea, on CPAP. 21. Osteoarthritis. PLAN: In the morning, we will change off the IV Solu-Medrol to oral steroids. Continue DuoNebs. Continue Rocephin. Continue physical therapy aggressively. He is off his Norvasc, hydralazine, and lisinopril due to blood pressures which are now rising again into the higher normal range. He remains on low-dose metoprolol and Imdur. He is not on any diuretics. Did receive some early in the hospital course and it appears he is dehydrated currently so we will give him some low IV hydration with normal saline and monitor his BUN and creatinine and electrolytes closely. We will try to do this slowly so as not to exacerbate his CHF over the next 2 to 3 days. Continue Advair and Robitussin DM, and prophylaxis of DVT with Lovenox. We will arrange for home health care and home PT as this is patient's request. Possible discharge in about 3 days if he continues on the present course, if okay with Dr. Person. Continue aspirin and Plavix per cardiology. cc: Doron Rowe MD
--- NOTE | 2019-01-02 09:10 | Diag Imaging Result Doc PS360 ---
EXAM: CHEST-2 VIEWS INDICATION: pna/chf TECHNIQUE: 2 views COMPARISON: 12/31/2018 FINDINGS: The mild left lower lobe infiltrate appears to have improved. The mild pulmonary venous congestion is also likely improved. No new consolidation is identified. Cardiac silhouette is stable. IMPRESSION: Interval improvement as described. Electronically signed by Lobo Lopez 01/02/2019 9:08 AM
[2019-01-02] MEDS: LOPRESSOR PO SCH ×2 (09:55→22:23)
[2019-01-02] MEDS: FISH OIL CONCENTRATE PO SCH (09:55)
[2019-01-02] MEDS: ICAR-C PO SCH ×2 (09:55→22:23)
[2019-01-02] MEDS: ASPIRIN PO SCH (09:55)
[2019-01-02] MEDS: PLAVIX PO SCH (09:55)
[2019-01-02] MEDS: ISORDIL PO SCH ×3 (09:55→17:16)
[2019-01-02] MEDS: CASODEX PO SCH (09:55)
[2019-01-02] MEDS: CYMBALTA PO SCH (09:55)
[2019-01-02] MEDS: LIORESAL PO SCH ×3 (09:55→17:16)
[2019-01-02] MEDS: PATIENT'S OWN MED PO SCH (09:56)
[2019-01-02] MEDS: LOVENOX SUBQ SCH (09:56)
[2019-01-02] MEDS: SOLU-MEDROL IV SCH ×2 (09:56→22:22)
[2019-01-02] MEDS: NS 1,000 ML IV SCH ×2 (10:00→19:57)
--- NOTE | 2019-01-02 13:26 | CARDIOLOGY PROGRESS NOTE ---
DATE: 01/02/2019 SUBJECTIVE: The patient does not complain of chest pain. He has low back discomfort. Shortness of breath is stable. There are no palpitations. OBJECTIVE: Vital signs: Blood pressure 113/56. Cardiovascular: First and second heart sounds were heard. Lungs: Clinically clear. Abdomen: Soft, nontender. There was no guarding or rigidity. Bowel sounds were heard. Central nervous system: Alert and oriented. Was moving all 4 extremities. LABORATORY EXAMINATION: Revealed a BUN 61, creatinine 2.3, sodium 140, potassium 4.4. Today, BUN was 120, creatinine of 4.5. Hemoglobin 9.7, hematocrit 29, platelet count of 241,000. Patient on admission had a hemoglobin of 12.2 and hematocrit of 37.6. PROBLEM LIST: 1. Pneumonia. 2. Renal insufficiency, prerenal renal azotemia. 3. Non-Q-wave myocardial infarction. 4. Left ventricular dysfunction. 5. Moderate aortic stenosis. 6. Permanent pacemaker implantation. 7. Chronic atrial fibrillation on aspirin. Not on anticoagulation due to frequent falls and gastrointestinal bleeding in the past. PLAN: 1. He is being hydrated. Likely to have prerenal azotemia. 2. His hemoglobin and hematocrit has dropped as well. We will check a stool for occult blood. He has had a history of GI bleeding in the past. We will make sure there is no obvious GI bleeding. 3. Non-Q-wave myocardial infarction. He is on aspirin and Plavix. I have not made any other changes. 4. Hypertension. Continue with beta blockers. His other antihypertensive medications, LUNA inhibitors and calcium channel blockers have been held. In addition, he was on hydralazine as well. 5. We will check CBC and BMP in the morning. Thank you for the consult. We will follow hospital course. cc: MD Doron Eason MD
[2019-01-02] MEDS: ROCEPHIN 1 GM in NS 50 ML IV SCH (17:16)
[2019-01-02] MEDS: LIPITOR PO SCH (22:23)
[2019-01-02] MEDS: PROSCAR PO SCH (22:23)
[2019-01-02] MEDS: GLUCOSAMINE 500 MG/CHONDROITIN 400 MG PO SCH (22:23)
[2019-01-03] MEDS: DUONEB (A & A) INH SCH ×6 (00:35→19:55)
[2019-01-03] MEDS: NS 1,000 ML IV SCH ×2 (06:26→17:39)
[2019-01-03] MEDS: PROTONIX PO SCH (06:26)
[2019-01-03] MEDS: HUMULIN R SUBQ SCH ×4 (06:27→22:21)
[2019-01-03 07:41] LABS: BASO# 0.02 X1000 (0.0-0.2); BASO% 0.1 % (0.0-0.8); HEMATOCRIT 30.1 % (42.0-52.0); HEMOGLOBIN 9.6 g/dL (14.0-18.0); IMM GRAN# 0.67 X1000 (0.0-0.04); IMM GRAN% 3.9 % (0.0-0.5); LYMPH# 0.76 X1000 (1.2-3.4); LYMPH% 4.4 % (20.5-51.1); MCH 29.4 PG (27-31); MCHC 31.9 g/dL (33-37); MCV 92.3 FL (81-99); MONO# 0.85 X1000 (0.11-0.59); MPV 10.8 FL (7.4-10.4); NEUT# 14.87 X1000 (1.4-6.5); NEUT% 86.6 % (42.2-75.2); PLT 233 X1000 (130-400); RBC 3.26 XMIL (4.7-6.1); RDW 12.3 % (11.5-14.5); WBC 17.17 X1000 (4.8-10.8)
[2019-01-03] MEDS: ADVAIR 250/50 DISKUS INH SCH ×2 (07:58→19:55)
[2019-01-03 08:00] LABS: CALCIUM 9.5 mg/dL (8.8-10.2); CREATININE 4.2 mg/dL (0.7-1.2); POTASSIUM 4.9 mmol/L (3.5-5.1)
[2019-01-03 08:18] LABS: BANDS 6 % (0-1); LYMPHS 8 % (21-51); MONO 4 % (1-9); SEGS 82 % (42-75)
[2019-01-03] MEDS: CASODEX PO SCH (10:29)
[2019-01-03] MEDS: ASPIRIN PO SCH (10:29)
[2019-01-03] MEDS: CYMBALTA PO SCH (10:30)
[2019-01-03] MEDS: ICAR-C PO SCH ×2 (10:31→22:18)
[2019-01-03] MEDS: LOPRESSOR PO SCH ×2 (10:31→22:18)
[2019-01-03] MEDS: LIORESAL PO SCH ×3 (10:31→17:40)
[2019-01-03] MEDS: FISH OIL CONCENTRATE PO SCH (10:31)
[2019-01-03] MEDS: ISORDIL PO SCH ×3 (10:31→17:40)
[2019-01-03] MEDS: PLAVIX PO SCH (10:32)
[2019-01-03] MEDS: LOVENOX SUBQ SCH (10:32)
[2019-01-03] MEDS: PREDNISONE PO SCH (10:32)
[2019-01-03] MEDS: PATIENT'S OWN MED PO SCH (12:22)
[2019-01-03] MEDS: ROCEPHIN 1 GM in NS 50 ML IV SCH (13:36)
--- NOTE | 2019-01-03 14:13 | PROGRESS NOTE ---
DATE: 01/03/2019 SUBJECTIVE: Patient lying flat. He has no complaints. Appears stable. OBJECTIVE: Vital signs: Afebrile, pulse 60, respirations 20, blood pressure 125/64, O2 saturation on room air 99%. Cardiovascular: Irregularly irregular. Lungs: Clear to auscultation. Abdomen: Protuberant, soft, nontender, nondistended. Extremities: No calf tenderness, cords or edema. Venous stasis dermatitis left lower extremity continues to dry and appears better than when admitted. Neurologic: Cranial nerves are intact. He moves all extremities well. LABORATORY DATA: White count 20278 on steroids, hemoglobin 9.6 and stable, platelets to 233,000. Sodium 138, potassium 4.9, chloride 104, CO2 is 17, BUN 121, creatinine 4.2. Blood sugars in the mid 100s to low 200, calcium 9.5. Blood cultures x2 remain negative IMAGING: Chest x-ray done yesterday reveals left lower lobe infiltrate improved, and mild pulmonary vascular congestion is also improved. No new consolidation. ASSESSMENT: 1. Pneumonia, improving. 2. Prerenal azotemia, slightly improving with rehydration gradually. 3. Acute on chronic systolic congestive heart failure, compensated. 4. Non-Q-wave myocardial infarction with patient declining left heart catheterization and desiring medical management. 5. Frequent falls thought related to #1, improved with ongoing physical therapy and patient desiring of home health care and home physical therapy when discharged. 6. Moderate aortic stenosis. 7. Mild mitral regurgitation and tricuspid regurgitation. 8. Chronic atrial fibrillation, on Plavix and aspirin therapy and not on other anticoagulant due to history of gastrointestinal bleeds and frequent falls. 9. Venous stasis dermatitis left lower extremity, improved. 10. Right knee abrasion, much improved. 11. Multiple contusions, improved. 12. Permanent pacemaker. 13. Moderate coronary artery disease, known. 14. Hypertension. 15. Hyperlipidemia. 16. Chronic renal insufficiency with prominent component of prerenal azotemia, improving with rehydration slowly. 17. Mild right renal artery stenosis. 18. History of left carotid endarterectomy and carotid stenosis in 2009. 19. Prostate cancer, on Casodex per Dr. Velasco. 20. Obstructive sleep apnea, on CPAP. 21. Osteoarthritis. PLAN: We have changed him over to oral steroids this morning, are continuing DuoNeb and continuing IV Rocephin. He is on antihypertensives of only metoprolol and he is on Imdur for his CAD. He is on Plavix and aspirin therapy. Physical Therapy is working with the patient. Hemoccult has been ordered but not yet obtained. Hemoglobin is stable, so no apparent GI bleeding at this point. He remains on prophylactic PPI. He is on prophylactic dose of Lovenox for DVT. We are rehydrating with normal saline at 100 mL an hour and we will continue this over the next 48 hours likely and expect to see improvement in his BUN and creatinine gradually, and we will monitor him for CHF while on this regimen. I spoke with Dr. Person and he is in agreement with the plan. Will likely be able to be discharged home in 48 hours if he continues slow improvement as he is doing. cc: Doron Rowe MD
[2019-01-03] MEDS: LIPITOR PO SCH (22:18)
[2019-01-03] MEDS: GLUCOSAMINE 500 MG/CHONDROITIN 400 MG PO SCH (22:18)
[2019-01-03] MEDS: PROSCAR PO SCH (22:18)
[2019-01-04] MEDS: DUONEB (A & A) INH SCH ×6 (05:16→23:15)
[2019-01-04] MEDS: NS 1,000 ML IV SCH ×2 (05:18→18:33)
[2019-01-04] MEDS: HUMULIN R SUBQ SCH ×4 (06:17→21:44)
[2019-01-04] MEDS: PROTONIX PO SCH (06:40)
[2019-01-04 07:23] LABS: BASO# 0.03 X1000 (0.0-0.2); BASO% 0.2 % (0.0-0.8); HEMATOCRIT 28.9 % (42.0-52.0); HEMOGLOBIN 9.2 g/dL (14.0-18.0); IMM GRAN# 0.86 X1000 (0.0-0.04); IMM GRAN% 4.7 % (0.0-0.5); LYMPH# 0.83 X1000 (1.2-3.4); LYMPH% 4.5 % (20.5-51.1); MCH 29.6 PG (27-31); MCHC 31.8 g/dL (33-37); MCV 92.9 FL (81-99); MONO# 1.35 X1000 (0.11-0.59); MONO% 7.4 % (1.7-9.3); MPV 10.7 FL (7.4-10.4); NEUT# 15.25 X1000 (1.4-6.5); NEUT% 83.2 % (42.2-75.2); PLT 240 X1000 (130-400); RBC 3.11 XMIL (4.7-6.1); RDW 12.5 % (11.5-14.5); WBC 18.32 X1000 (4.8-10.8)
[2019-01-04 07:34] LABS: CREATININE 4.1 mg/dL (0.7-1.2)
[2019-01-04] MEDS: ADVAIR 250/50 DISKUS INH SCH ×2 (07:50→19:50)
[2019-01-04] MEDS: LOPRESSOR PO SCH ×3 (11:01→21:48)
[2019-01-04] MEDS: ASPIRIN PO SCH (11:01)
[2019-01-04] MEDS: LOVENOX SUBQ SCH (11:02)
[2019-01-04] MEDS: LIORESAL PO SCH ×3 (11:03→18:35)
[2019-01-04] MEDS: ISORDIL PO SCH ×3 (11:03→18:34)
[2019-01-04] MEDS: ICAR-C PO SCH ×3 (11:03→21:48)
[2019-01-04] MEDS: CASODEX PO SCH (11:04)
[2019-01-04] MEDS: CYMBALTA PO SCH (11:04)
[2019-01-04] MEDS: FISH OIL CONCENTRATE PO SCH (11:04)
[2019-01-04] MEDS: PREDNISONE PO SCH (11:04)
[2019-01-04] MEDS: PATIENT'S OWN MED PO SCH (11:05)
[2019-01-04] MEDS: PLAVIX PO SCH (11:10)
[2019-01-04 11:38] LABS: BASO# 0.07 X1000 (0.0-0.2); BASO% 0.3 % (0.0-0.8); HEMATOCRIT 28.9 % (42.0-52.0); HEMOGLOBIN 9.3 g/dL (14.0-18.0); IMM GRAN# 1.25 X1000 (0.0-0.04); IMM GRAN% 6.2 % (0.0-0.5); MCH 29.8 PG (27-31); MCHC 32.2 g/dL (33-37); MCV 92.6 FL (81-99); MONO# 1.42 X1000 (0.11-0.59); MPV 10.3 FL (7.4-10.4); NEUT# 16.45 X1000 (1.4-6.5); NEUT% 81.5 % (42.2-75.2); PLT 245 X1000 (130-400); RBC 3.12 XMIL (4.7-6.1); RDW 12.5 % (11.5-14.5); WBC 20.19 X1000 (4.8-10.8)
[2019-01-04 11:56] LABS: ANISOCYTOSIS 1+; LYMPHS 5 % (21-51); MONO 7 % (1-9); POLYCHROM OCCASIONAL; SEGS 85 % (42-75)
[2019-01-04 11:57] LABS: HOWELL-JOLLY BODIES OCCASIONAL
--- NOTE | 2019-01-04 11:57 | Diag Imaging Result Doc PS360 ---
EXAM: CT HEAD W/O CONTRAST 01/04/2019 HISTORY: New onset facial drooping TECHNIQUE: This exam was performed using automated exposure control, adjustment of mA or kV according to patient size, and/or use of iterative reconstruction technique. COMMENT: There is moderate cerebral atrophy. There is no evidence of bleed or abnormal extra-axial fluid collection. There is no evidence of mass effect. Compared to the previous study of 12/30/2018, there has been no appreciable change. IMPRESSION: No evidence of acute intracranial disease. Electronically signed by Jason Mcdaniel 01/04/2019 11:55 AM
[2019-01-04 11:59] LABS: CALCIUM 8.2 mg/dL (8.8-10.2); POTASSIUM 4.9 mmol/L (3.5-5.1)
--- NOTE | 2019-01-04 13:31 | PROGRESS NOTE ---
DATE: 01/04/2019 SUBJECTIVE: Patient apparently by nursing staff they had thought he had some right facial droop, maybe some weakness in his right arm, so they had called Dr. Granger who is quality assurance monitor final for me and they are moving him down for a CT of the head now and checking some labs. An EKG was done which shows paced rhythm. Patient appears at his baseline right now. His relative is in the room with him. They have been concerned about some off and on confusion over the past 6 months or so on occasion. Nothing new presently. OBJECTIVE: Afebrile. Pulse 63, respirations 18, blood pressure 140/78, O2 saturation on room air 100%.CV: Irregularly irregular. Lungs: Fairly clear. Abdomen: Soft, nontender, nondistended. Extremities: No calf tenderness, cords or edema. Venous stasis dermatitis left leg continues to dry and improve. Neurologic: Cranial nerves are intact. I do not perceive any facial weakness myself. He is alert and oriented. He is at his baseline, which may entail some mild or minimal confusion at times but nothing severe currently. He follows commands well. Answers questions appropriately. Moves all extremities well. I do not really perceive any major weakness in his extremities at this time. LABORATORY DATA: White count is 18.3 on steroids, hemoglobin 9.2, platelets 240,000. Sodium 139, potassium 5.0, chloride 109, CO2 of 16, BUN 119, creatinine 4.1, glucose low 200s to mid 100s. ASSESSMENT: 1. Possible right facial droop per nursing staff. 2. Pneumonia, improved. 3. Prerenal azotemia on top of chronic renal insufficiency, not improving so far with hydration at 100 mL normal saline for an hour over the past couple of days. 4. Acute on chronic systolic congestive heart failure compensated. 5. Non-Q-wave myocardial infarction with patient asking for medical management only. 6. Frequent falls. 7. Moderate aortic stenosis. 8. Mild mitral regurgitation and tricuspid regurgitation. 9. Chronic atrial fibrillation on Plavix and aspirin therapy, not deemed to be a candidate for more anticoagulation due to history of gastrointestinal bleeds and frequent falls. 10. Venous stasis dermatitis left lower extremity. 11. Right knee abrasion, improving. 12. Multiple contusions, improved, nearly resolved. 13. Permanent pacemaker. 14. Moderate coronary artery disease. 15. Hypertension. 16. Hyperlipidemia. 17. History of left carotid endarterectomy and carotid stenosis, remote. 18. Prostate cancer on Casodex per Dr. Velasco. 19. Obstructive sleep apnea on CPAP. 20. Osteoarthritis. PLAN: The patient will receive neuro checks, getting cardiac enzymes and troponin and CT head. Continue IV Rocephin. Continue low-dose metoprolol, aspirin, Plavix, Imdur. Continue prophylaxis of peptic ulcer disease with oral PPI. Continue Lovenox for DVT prophylaxis. Continue vigorous physical therapy which he did fairly well with this morning according to family member. Will check dementia lab workup with routine labs in the morning and monitor his renal function and if not improved with renal function may require Nephrology consult. For now continue to hydrate gradually. He had planned on going home with home health care but it may be at this time he might be a candidate for possible rehab. We discussed that and there are reflecting on that decision at this time. cc: Doron Rowe MD
[2019-01-04] MEDS: ROCEPHIN 1 GM in NS 50 ML IV SCH (14:23)
[2019-01-04] MEDS ORDERED: GEODON IM ONE (19:26)
[2019-01-04] MEDS ORDERED: STERILE WATER INJ. INJ ONE (19:26)
[2019-01-04] MEDS: GLUCOSAMINE 500 MG/CHONDROITIN 400 MG PO SCH ×2 (21:42→21:48)
[2019-01-04] MEDS: LIPITOR PO SCH ×2 (21:43→21:48)
[2019-01-04] MEDS: PROSCAR PO SCH ×2 (21:43→21:49)
[2019-01-05] MEDS: NS 1,000 ML IV SCH ×3 (00:03→20:46)
[2019-01-05] MEDS: DUONEB (A & A) INH SCH ×6 (05:16→23:18)
[2019-01-05] MEDS: HUMULIN R SUBQ SCH ×4 (06:51→20:24)
[2019-01-05] MEDS: PROTONIX PO SCH (06:51)
[2019-01-05 07:21] LABS: BASO# 0.05 X1000 (0.0-0.2); BASO% 0.2 % (0.0-0.8); EOS# 0.01 X1000 (0.0-0.7); HEMATOCRIT 29.9 % (42.0-52.0); HEMOGLOBIN 9.7 g/dL (14.0-18.0); IMM GRAN# 1.41 X1000 (0.0-0.04); IMM GRAN% 6.7 % (0.0-0.5); LYMPH# 1.14 X1000 (1.2-3.4); LYMPH% 5.4 % (20.5-51.1); MCHC 32.4 g/dL (33-37); MCV 92.6 FL (81-99); MONO# 1.25 X1000 (0.11-0.59); MONO% 5.9 % (1.7-9.3); MPV 10.5 FL (7.4-10.4); NEUT# 17.23 X1000 (1.4-6.5); NEUT% 81.8 % (42.2-75.2); PLT 248 X1000 (130-400); RBC 3.23 XMIL (4.7-6.1); RDW 12.7 % (11.5-14.5); WBC 21.09 X1000 (4.8-10.8)
[2019-01-05] MEDS: ADVAIR 250/50 DISKUS INH SCH ×2 (07:27→19:45)
[2019-01-05 07:35] LABS: LYMPHS 8 % (21-51); SEGS 90 % (42-75)
[2019-01-05 07:38] LABS: ALB/GLOB RATIO 1.4; ALBUMIN 3.6 g/dL (3.5-5.0); CALCIUM 8.7 mg/dL (8.8-10.2); CREATININE 3.7 mg/dL (0.7-1.2); MAGNESIUM 2.4 mg/dL (1.5-2.7); POTASSIUM 4.6 mmol/L (3.5-5.1); TOTAL BILIRUBIN 0.31 mg/dL (0.20-1.00); TOTAL PROTEIN 6.1 g/dL (6.3-8.3)
[2019-01-05 07:40] LABS: FREE T4 0.95 ng/dL (0.93-1.70); TSH 0.8 uIUmL (0.27-4.20)
[2019-01-05] MEDS ORDERED: MORPHINE IV PRN (08:21)
--- NOTE | 2019-01-05 08:44 | PROGRESS NOTE ---
DATE: 01/05/2019 SUBJECTIVE: Mr. Hall is an 83-year-old, white gentleman admitted with multiple falls at home. The patient also found to have bilateral pneumonia. The patient is doing fair. The patient does have increasing confusion; at times, agitation. He is trying to get out of bed. No high-grade fever or chills. Yesterday, we had to give him some sedation so he could not pull his IV and stay in the bed. There was a question about facial droop. Patient had CT scan of the head done yesterday which did not reveal any acute intracranial disease. Compared to previous CT on 12/30/2018, there were no acute interval changes. Admission history and physical noted. The patient denied any chest pain. No abdominal pain, nausea, vomiting. Oral intake is variable. PAST MEDICAL HISTORY: Significant for hypertension, chronic atrial fibrillation, congestive heart failure, BPH, right renal artery stenosis, osteoarthritis, coronary artery disease, obstructive sleep apnea. The patient does have permanent pacemaker, chronic kidney disease, history of prostate cancer, mild to moderate aortic stenosis. PHYSICAL EXAMINATION: Vital Signs: Blood pressure 169/86, pulse 60, respirations 16, temperature 97.3 degrees. Skin: The patient does have evidence of chronic venous stasis, left lower limb. Neck: Supple. No JVD. Lungs: Bibasilar crepitations. Occasional wheezing. CVS: S1 and S2 heard. A 2/6 systolic murmur at aortic area. Abdomen: Soft, globular. Bowel sounds present. Extremities: No cyanosis, clubbing. No acute DVT. [employer]: Alert, awake. Able to move all 4 limbs. Uncooperative for detailed exam. LABORATORY DATA: Done today revealed leukocytosis. WBC count 21.09, hemoglobin 9.7, hematocrit 29.9, platelet count was 248,000. Electrolytes: BUN was 112, creatinine 3.7. Vitamin B12 and folate were normal. ASSESSMENT: The patient's problems include: 1. Bilateral pneumonia. 2. Acute on chronic kidney disease. 3. The patient had frequent falls. 4. At atrial fibrillation. 5. Delirium. 6. History of aortic stenosis. 7. Venous stasis dermatitis, left lower leg. 8. Coronary artery disease. 9. Hypertension. PLAN: We will continue current treatment. Close observation. I am going to hold his Lipitor at this time. Start the patient on pain medication. Because of his fall, possibility of pain cannot be ruled out which can cause agitation. Continue rest of the treatment and close observation. cc: MD Doron Tello MD
[2019-01-05] MEDS ORDERED: PREDNISONE PO SCH (09:00)
[2019-01-05] MEDS: CYMBALTA PO SCH (09:43)
[2019-01-05] MEDS: LOPRESSOR PO SCH ×2 (09:43→20:44)
[2019-01-05] MEDS: ICAR-C PO SCH ×2 (09:43→20:45)
[2019-01-05] MEDS: ASPIRIN PO SCH (09:43)
[2019-01-05] MEDS: PLAVIX PO SCH (09:43)
[2019-01-05] MEDS: FISH OIL CONCENTRATE PO SCH (09:43)
[2019-01-05] MEDS: LIORESAL PO SCH ×3 (09:43→17:48)
[2019-01-05] MEDS: ISORDIL PO SCH ×3 (09:45→17:48)
[2019-01-05] MEDS: PATIENT'S OWN MED PO SCH (09:45)
[2019-01-05] MEDS: CASODEX PO SCH (09:45)
[2019-01-05] MEDS: LOVENOX SUBQ SCH (14:06)
[2019-01-05] MEDS: ROCEPHIN 1 GM in NS 50 ML IV SCH (14:08)
[2019-01-05 14:57] LABS: URINE SOURCE CATH
[2019-01-05 15:15] LABS: BILIRUBIN URINE NEGATIVE (NEGATIVE); BLOOD URINE TRACE (NEGATIVE); COLOR YELLOW; GLUCOSE URINE NEGATIVE (NEGATIVE); KETONE URINE NEGATIVE (NEGATIVE); LEUKOCYTES URINE NEGATIVE (NEGATIVE); NITRITE URINE NEGATIVE (NEGATIVE); PROTEIN URINE NEGATIVE (NEGATIVE); SP GRAVITY URINE 1.012; TURBIDITY URINE CLEAR (CLEAR); UROBILINOGEN URINE NORMAL (NORMAL)
[2019-01-05 15:17] LABS: UR EPITHELIAL CELLS <10 /HPF (<10); URINE BACTERIA NEGATIVE /HPF; URINE RBC <10 /HPF (<10); URINE WBC <10 /HPF (<10)
[2019-01-05 19:50] LABS: UR CREAT RANDOM 53.8 mg/dL (14-26); UR PROT RANDOM 6.4 mg/dL
[2019-01-05] MEDS: GLUCOSAMINE 500 MG/CHONDROITIN 400 MG PO SCH (20:45)
[2019-01-05] MEDS: PROSCAR PO SCH (20:49)
[2019-01-06] MEDS: DUONEB (A & A) INH SCH ×6 (04:57→23:30)
[2019-01-06] MEDS: HUMULIN R SUBQ SCH ×4 (06:03→21:59)
[2019-01-06] MEDS: NS 1,000 ML IV SCH ×2 (06:18→10:35)
[2019-01-06 07:24] LABS: ALBUMIN 3.4 g/dL (3.5-5.0); CALCIUM 8.6 mg/dL (8.8-10.2); CREATININE 3.5 mg/dL (0.7-1.2); PHOSPHORUS 4.6 mg/dL (2.7-4.5); POTASSIUM 4.9 mmol/L (3.5-5.1)
[2019-01-06] MEDS: PROTONIX PO SCH (07:26)
[2019-01-06] MEDS: ADVAIR 250/50 DISKUS INH SCH ×2 (07:30→20:16)
--- NOTE | 2019-01-06 07:35 | EKG Report ---
Test Performed on : 01/04/2019 10:57:50 AM Test Reason : New onset facial drooping. Blood Pressure : / mmHG Vent. Rate : 060 BPM Atrial Rate : 056 BPM P-R Int : 000 ms QRS Dur : 202 ms QT Int : 546 ms P-R-T Axes : 000 -73 146 degrees QTc Int : 546 ms Ventricular-paced rhythm Abnormal ECG When compared with ECG of 02-JAN-2019 07:19, Electronic ventricular pacemaker has replaced Wide QRS rhythm. Confirmed by Antonieta GROSSMAN, Corby Acuna ([id number]) on 01/06/2019 9:30:28 AM
[2019-01-06] MEDS ORDERED: MORPHINE IV PRN (08:22)
[2019-01-06] MEDS: LOPRESSOR PO SCH ×2 (08:36→21:59)
[2019-01-06] MEDS: CASODEX PO SCH (08:36)
[2019-01-06] MEDS: ISORDIL PO SCH ×3 (08:36→21:59)
[2019-01-06] MEDS: ICAR-C PO SCH ×2 (08:36→21:58)
[2019-01-06] MEDS: ASPIRIN PO SCH (08:36)
[2019-01-06] MEDS: PLAVIX PO SCH (08:37)
[2019-01-06] MEDS: CYMBALTA PO SCH (08:37)
[2019-01-06] MEDS: LIORESAL PO SCH ×2 (08:37→15:37)
[2019-01-06] MEDS: FISH OIL CONCENTRATE PO SCH (08:37)
[2019-01-06] MEDS: PATIENT'S OWN MED PO SCH (08:43)
[2019-01-06] MEDS ORDERED: PREDNISONE PO SCH (09:00)
--- NOTE | 2019-01-06 09:11 | Diag Imaging Result Doc PS360 ---
EXAM: US RENAL 2 (RETROPER) COMPLETE HISTORY: decreased renal function TECHNIQUE: Renal ultrasound COMPARISON: None. FINDINGS: The right kidney measures 12.1 x 6.3 x 6.2 cm. Normal renal echotexture and cortical thickness. No stone or hydronephrosis. There is a 2.2 cm cyst inferiorly. Urinary bladder is minimally distended. The left kidney is difficult to fully evaluate. It measures approximately 11.0 x 4.7 x 4.7 cm. No mass identified. No stone or hydronephrosis. IMPRESSION: Small right renal cyst, but otherwise normal renal ultrasound. Electronically signed by Yobany Riley 01/06/2019 9:09 AM
--- NOTE | 2019-01-06 09:22 | PROGRESS NOTE ---
DATE: 01/06/2019 SUBJECTIVE: The patient remains confused. Could be minimal right droop at the mouth. He is conversant but confused. Answers some questions appropriately. OBJECTIVE: Afebrile, pulse 60, respirations 24, blood pressure 181/80, O2 saturation on 3 L is 96% on room air, down as low as 85%. Cardiovascular: Regular rate and rhythm. Lungs: There are some crackles, right greater than left today, increasing. Abdomen: Protuberant, soft, nontender and nondistended. Extremities: No calf tenderness, cords or edema. Neurologic: The patient moves all extremities well. May be minimal right facial droop at the right cheek, right mouth. DIAGNOSTIC DATA: CT of head done 01/04/2019 with no evidence of acute intracranial disease. Lab data shows sodium 145, potassium 4.9, chloride 117, CO2 is 14, BUN is 98, creatinine 3.5, phosphorus 4.6, calcium 8.6, albumin 3.4. White count is 21,000 on steroids, hemoglobin 9.7, platelets 248. Heme-positive stool. ASSESSMENT: 1. Possible minimal right facial droop, rule out cerebrovascular accident. 2. Mental status change, rule out secondary to cerebrovascular accident, ischemic variety not showing up on CT scan. 3. Pneumonia, improved. 4. Chronic renal insufficiency with prerenal azotemia, improving, now to the point he seems to be tipping back over to the volume overload status with his lung status. 5. Acute on chronic systolic congestive heart failure. 6. Non-Q-wave myocardial infarction with medical management per Cardiology. 7. Frequent falls. 8. Moderate aortic stenosis. 9. Mild mitral regurgitation and tricuspid regurgitation. 10.Chronic atrial fibrillation on Plavix and aspirin and deemed not a candidate for more anticoagulation due to history of GI bleeds, heme-positive stool and frequent falls. 11.Heme-positive stool. 12.Venostasis dermatitis of left lower extremity, improved. 13.Right knee abrasion, improved. 14.Multiple contusions, much improved. 15.Permanent pacemaker. 16.Moderate coronary artery disease with history of recent non-Q-wave myocardial infarction. 17.Hypertension. 18.Hyperlipidemia. 19.History of left carotid endarterectomies and carotid stenosis, remote. 20.Prostate cancer, on Casodex per Dr. Velasco. 21.Obstructive sleep apnea, on CPAP. 22.Osteoarthritis. PLAN: At this time, I am going to back off on the IV fluids slightly and monitor his fluid status closely. Creatinine at baseline is in the mid 1's to low 2's. Dr. Ward has been consulted per Cardiology and will see the patient. We will continue the aspirin and Plavix and will work with physical therapy as his mentation allows. We will continue to observe currently. We will keep him in the hospital here due to hypoxia and a mental status change which could be related to recent ischemic CVA. Consider repeat CT scan of the head tomorrow. cc: Doron Rowe MD
[2019-01-06] MEDS: LOVENOX SUBQ SCH (09:31)
--- NOTE | 2019-01-06 10:25 | NEPHROLOGY CONSULTATION ---
DATE: 01/06/2019 REASON FOR ADMISSION: A history of mild confusion several days prior to coming into the hospital associated with increasing cough productive with green phlegm and shortness of breath. REASON FOR CONSULT: Acute kidney injury. CONSULTING PHYSICIAN: Deondre Person MD HISTORY OF PRESENT ILLNESS: Mr. Hall is an 83-year-old white male, who has not been seen by our practice in the past, with a noted baseline creatinine on his admission of 1.8. During his hospital stay, he has had a Cardiology consult for possible fluid volume overload with pulmonary edema. It is noted that on his admission he had had multiple falls. Several weeks prior to his admission, he had fallen in the bedroom, was unable to get up. He had laid there for a short period of time secondary to not allowing his to call for an ambulance. He had had a cough couple days up to a week prior to coming in. It had become green with increasing shortness of breath, finally developing hemoptysis. He had had a fever for 2 to 3 days, and upon his initial evaluation was found to have a head CT that showed increase in lateral ventricles compared to 06/17/2014, possibly increased cerebral atrophy, nothing acute. He also had a chest x-ray upon his admission showing cardiomegaly with pulmonary edema, plus or minus pneumonia. Chest CT without contrast showed patchy pneumonia, worsening mediastinal adenopathy with bilateral pleural effusions. During his care, the patient has received renal-dosed antibiotics, currently continues on Rocephin, started on prednisone, was given several doses of spironolactone initially on his admission with Lasix. He had been on his lisinopril b.i.d. This has currently been stopped. His Lasix has been stopped. He now has IV fluids going of normal saline at 45 mL an hour. DIAGNOSTIC STUDIES: The patient had a renal ultrasound that indicated right kidney measuring 12.1, left measuring 11, with a small right renal cyst. No hydronephrosis. No renal atrophy. FENa score from urine electrolytes is 1.82%, possibly ATN secondary to dehydration/volume depletion. His BUN is 78 which is improved after stopping Lasix from 112, creatinine is down to 3.5 from 3.7. He has 3 L of urine output documented per Lopez catheter. There are no indications for dialysis intervention. We will continue to monitor and follow. No indications for changing of current medications. Electrolytes: These are currently stable. Acid-base balance: Patient has a mild metabolic acidosis. May possibly require sodium bicarbonate to be started today at 325 mg p.o. b.i.d. Anemia: This is low but stable with a hemoglobin of 9.7. PHYSICAL EXAMINATION: This is an 83-year-old white male, resting quietly in bed. He appears chronically ill. No acute distress. Skin is warm and dry.HEENT: Normocephalic, atraumatic. Conjunctiva is pale pink. He has DIAZ. Mucous membranes are dry. Neck: Supple. Trachea midline. Unable to determine JVD in his position. Cardiovascular: He has regular rate and rhythm. He is without murmur or gallop. Lungs: Clear to auscultation bilaterally. Equal excursion. He does have a slight productive cough. Remains on room air. Abdomen: Slightly distended. Hypoactive bowel sounds. Soft to palpation. Genitourinary: Not inspected. Lopez catheter is in place with adequate urine out. Extremities: Have no edema. No clubbing or cyanosis. Integumentary: Patient does have chronic venous stasis, left greater than right. Neurological: Patient is alert and oriented to person and to place. ASSESSMENT AND PLAN: 1. Acute kidney injury. The patient's BUN and creatinine have continued to slowly improve over the last 24-48 hours after his Lasix. Adequate urine output is documented. The patient has a negative renal ultrasound. FENa score is 1.82%. He is responding nicely to intravenous fluids. Adequate urine output is documented without any changes to his plan of care at this time. 2. Electrolytes. This is stable. 3. Acid-base balance. We will start sodium bicarbonate 325 mg b.i.d. 4. Anemia. This remains low but stable. 5. Patchy pneumonia. The patient has been on Rocephin IV. No indications for changes to renal dosing. Currently appropriate. 6. Qko-OM-[id number] myocardial infarction. This is being followed by Cardiology. 7. Chronic atrial fibrillation. Patient remains on Plavix and aspirin. Followed by the primary care with Cardiology. I would like to thank you for allowing us to follow with this patient. Dictated by LIT De La Cruz for Ren Ward MD Face to face encounter, data reviewed, discussed with Shikha Rubio on 01/06/19. I agree with the above assessment and plan of care. cc: LIT De La Cruz MD Stephen W. Harbin, MD MTDD
[2019-01-06] MEDS: ROCEPHIN 1 GM in NS 50 ML IV SCH (15:38)
[2019-01-06] MEDS: SODIUM BICARBONATE PO SCH (21:58)
[2019-01-06] MEDS: PROSCAR PO SCH (21:58)
[2019-01-06] MEDS: GLUCOSAMINE 500 MG/CHONDROITIN 400 MG PO SCH (21:59)
[2019-01-07] MEDS: DUONEB (A & A) INH SCH ×6 (03:30→23:25)
[2019-01-07] MEDS: NS 1,000 ML IV SCH (04:52)
[2019-01-07] MEDS: PROTONIX PO SCH (06:41)
[2019-01-07] MEDS: HUMULIN R SUBQ SCH ×4 (06:44→20:55)
[2019-01-07 06:53] LABS: ALBUMIN 3.4 g/dL (3.5-5.0); CALCIUM 8.8 mg/dL (8.8-10.2); CREATININE 3.1 mg/dL (0.7-1.2); PHOSPHORUS 4.1 mg/dL (2.7-4.5); POTASSIUM 4.7 mmol/L (3.5-5.1)
[2019-01-07] MEDS ORDERED: LR 1,000 ML IV SCH (07:00)
--- NOTE | 2019-01-07 08:14 | Diag Imaging Result Doc PS360 ---
CT HEAD W/O CONTRAST - 01/07/2019 INDICATION: ms change r/o ischemic cva COMPARISON: 01/04/2019 FINDINGS: Stable mild cerebral atrophy. Stable mild periventricular white matter chronic microvascular disease. No intracranial mass or hemorrhage. The skull is intact. The sinuses are clear. IMPRESSION: No acute disease or change from prior. This exam was performed using automated exposure control, adjustment of mA or kV according to patient size, and/or use of iterative reconstruction technique Electronically signed by Momo Fisher 01/07/2019 8:12 AM
[2019-01-07] MEDS: SODIUM BICARBONATE PO SCH ×2 (09:23→20:32)
--- NOTE | 2019-01-07 09:29 | Diag Imaging Result Doc PS360 ---
EXAM: CHEST-2 VIEWS 01/07/2019 HISTORY: pna TECHNIQUE: PA and lateral chest COMMENT: There is cardiomegaly. There is alveolar opacity in the left lower lobe and the right upper lobe. This was not the case on 01/02/2019. IMPRESSION: Patchy bilateral pneumonia. Cardiomegaly. Electronically signed by Jason Mcdaniel 01/07/2019 9:27 AM
--- NOTE | 2019-01-07 09:31 | NEPHROLOGY PROGRESS NOTE ---
DATE: 01/07/2019 SUBJECTIVE: He is restless, reaching up in the air, but he is able to focus on me and answer my questions. He admits to weakness, but no other specific complaints. OBJECTIVE: Vital Signs: Blood pressure 175/82, heart rate 60, respirations 22, afebrile. Intake 1.3 L, output 2.5 L. General: No acute distress. Skin: Warm and dry with ecchymoses. HEENT: Conjunctivae are pink. Oropharynx is dry. Neck: Neck veins are not appreciated. Heart: Regular. No gallops. Lungs: Equal with a few scattered rhonchi. Abdomen: Soft, nontender. Bowel sounds are present. Extremities: No edema, clubbing, or cyanosis. IMPRESSION: 1. Acute kidney injury. Creatinine was 3.5 yesterday. Trending downward. Good urine output. Repeat labs today. 2. Electrolytes/acid base. He does have a non-gap acidosis. He is receiving normal saline at 45 mL an hour, and this may lead to metabolic acidosis, so I will change his fluids to lactated Ringer's. No other changes. cc: MD Doron Teran MD
[2019-01-07] MEDS: ICAR-C PO SCH ×2 (09:35→20:31)
[2019-01-07] MEDS: ISORDIL PO SCH ×3 (09:35→20:31)
[2019-01-07] MEDS: LOVENOX SUBQ SCH (09:35)
[2019-01-07] MEDS: ASPIRIN PO SCH (09:35)
[2019-01-07] MEDS: LOPRESSOR PO SCH ×2 (09:36→20:30)
[2019-01-07] MEDS: CASODEX PO SCH (09:36)
[2019-01-07] MEDS: FISH OIL CONCENTRATE PO SCH (09:36)
[2019-01-07] MEDS: CYMBALTA PO SCH (09:36)
[2019-01-07] MEDS: PLAVIX PO SCH (09:36)
[2019-01-07] MEDS: ADVAIR 250/50 DISKUS INH SCH ×2 (10:04→19:45)
[2019-01-07] MEDS: PATIENT'S OWN MED PO SCH (12:38)
[2019-01-07] MEDS ORDERED: VANCOMYCIN IV PER PHARMACY MISC SCH (13:00)
[2019-01-07] MEDS: VANCOMYCIN 1 GM/NS 1 GM/250 ML IVPB IV SCH (14:59)
[2019-01-07] MEDS ORDERED: MERREM ONE (15:35)
[2019-01-07] MEDS: MERREM 1 GM in NS 50 ML IV SCH ×2 (16:03→21:11)
--- NOTE | 2019-01-07 16:15 | PROGRESS NOTE ---
DATE: 01/07/2019 SUBJECTIVE: Patient remains confused overall. He is talkative with his and his son, but he is moving his arms back and forth at times and although alert and eating well, has had some difficulty yesterday with some liquids according to his son. OBJECTIVE: Afebrile, pulse 67, respirations 18, blood pressure 186/78, O2 saturation on 2 L 92 to 100 percent.CV: Irregularly irregular. Lungs: Rhonchi right upper lung field. Notably. Abdomen: Soft protuberant NT. ND no mass no HSM. Extremities: No calf tenderness cords or edema. Neurologic: Cranial nerves are intact. He moves all extremities well. No major facial weakness. He seems to eat and protect his airway well. He answers some questions appropriately but appears moderately confused. LABORATORY DATA: Sodium is 149, potassium 4.7, chloride 118, CO2 15, BUN 89, creatinine 3.1. Blood sugar mid 100s to low 200s. Phosphorus 4.8, calcium 8.8, albumin 3.4. CT scan of the head done this morning without contrast shows no acute disease and no change from prior. Chest x-ray does show patchy bilateral infiltrates consistent with pneumonia and also some cardiomegaly. The alveolar opacities in the right upper lobe and the left lower lobe, much worse from 01/02/2019 ASSESSMENT/PLAN: 1. Mental status change/delirium. 2. Pneumonia. Previously improved now worsened again with signs of possible aspiration pneumonia occurring the past couple of days. 3. Chronic renal insufficiency with concomitant prerenal azotemia improving with rehydration, now on low-dose LR per nephrology. 4. Acute on chronic systolic congestive heart failure compensated. 5. Non-Q-wave myocardial infarction with medical management per cardiology. 6. Frequent falls. 7. Moderate aortic stenosis. 8. Mild mitral regurgitation and tricuspid regurgitation. 9. Chronic atrial fibrillation on Plavix and aspirin and deemed not a candidate for high-dose anticoagulation due to history of gastrointestinal bleeds, recent heme-positive stool and frequent falls. 10. Heme stool without signs of prominent gastrointestinal bleed. 11. Venous stasis dermatitis, left lower extremity, improved. 12. Right knee abrasion, resolved. 13. Multiple contusions after recent fall, stable. 14. Permanent pacemaker. 15. Moderate coronary artery disease with history of recent non-Q-wave myocardial infarction. 16. Hypertension. 17. Hyperlipidemia. 18. History of left carotid endarterectomy and prior carotid stenosis. 19. Prostate cancer on Casodex per Dr. Velasco. 20. Obstructive sleep apnea on CPAP. 21. Osteoarthritis. PLAN: Continue low-dose LR per nephrology. Now that it appears his x-ray shows signs of possible aspiration pneumonia we will change antibiotics from Rocephin to vancomycin and meropenem as this is likely aspiration pneumonia. Consider swallowing studies at a later date once his mental status is improved to the point he can undergo those. We will monitor his ability to eat closely and he seems to be guarding his airway well and his is sitting him up for the meals and he will keep elevated for an hour after the meals. Follow CBC and renal profile in the morning. cc: Doron Rowe MD
[2019-01-07] MEDS: PROSCAR PO SCH (20:31)
[2019-01-07] MEDS: CULTURELLE PO SCH (20:31)
[2019-01-07] MEDS: GLUCOSAMINE 500 MG/CHONDROITIN 400 MG PO SCH (20:31)
[2019-01-08] MEDS: DUONEB (A & A) INH SCH ×6 (03:35→23:16)
[2019-01-08] MEDS: MERREM 1 GM in NS 50 ML IV SCH ×3 (05:04→21:10)
[2019-01-08] MEDS: HUMULIN R SUBQ SCH ×4 (06:07→21:12)
[2019-01-08] MEDS: PROTONIX PO SCH (06:07)
[2019-01-08] MEDS: ADVAIR 250/50 DISKUS INH SCH ×2 (07:43→19:35)
--- NOTE | 2019-01-08 08:06 | NEPHROLOGY PROGRESS NOTE ---
DATE: 01/08/2019 TIME SEEN: 0625. SUBJECTIVE: Mr. Hall is resting quietly in bed. States that he is just a little bit better. Head of the bed is slightly elevated. OBJECTIVE: VITAL SIGNS: Temperature 98.4 degrees, blood pressure is 186/78, heart rate 61, respirations are 24. He is currently on room air, last recorded saturation is 93%. We have put his oxygen back on him at 2 L. He has had 1560 in, 1850 out to Lopez catheter with normal saline continuing at 50 mL an hour. LABORATORY DATA: These are currently pending. Previous potassium 4.7. Hemoglobin 9.7. He has a BUN of 89 with a creatinine last indicated at 3.1. PHYSICAL EXAMINATION: General: This is an 83-year-old white male resting quietly in bed. He appears in slight distress secondary to his tachypnea, using accessory muscles. He is awake. He denies any chest pain. HEENT: Normocephalic, atraumatic. Conjunctiva is pale pink. He has DIAZ. Mucous membranes are dry. Neck: Supple. Trachea midline. No evidence of JVD in the upright position. Cardiovascular: Regular rate and rhythm. An S4 is present. Lungs: Have coarse breath sounds bilateral with inspiratory and expiratory wheezes. He is now back on O2 at 2 L nasal cannula. He has fine bibasilar right crackle. Abdomen: Large, soft, nontender. Slightly distended. Hypo bowel sounds present. Genitourinary: Lopez catheter is in place. This has not been inspected. Extremities: Have no edema. No clubbing or cyanosis. Neurological: He is alert to person. ASSESSMENT AND PLAN: 1. Acute kidney injury. Patient's BUN and creatinine have continued to slowly respond in a positive direction over the last 24 to 48 hours. Labs are currently pending this a.m. Adequate urine output documented. No indications for dialysis intervention. 2. Electrolytes, acid-base balance and anemia. These are all pending this a.m. 3. Pneumonia. Patient remains on renal dosed antibiotics. 4. [id number]-[id number] myocardial infarction. This is followed by Cardiology and the primary care team. He has been receiving Lasix. I would to thank you for allowing us to follow with this patient. Dictated by LIT De La Cruz for Ren Ward MD Face to face encounter, data reviewed, discussed with Shikha Rubio on 01/08/19. I agree with the above assessment and plan of care. cc: LIT De La Cruz MD Stephen W. Harbin, MD [facility]
[2019-01-08 08:40] LABS: BASO# 0.03 X1000 (0.0-0.2); BASO% 0.2 % (0.0-0.8); EOS# 0.03 X1000 (0.0-0.7); EOS% 0.2 % (0.0-10.0); HEMATOCRIT 30.5 % (42.0-52.0); HEMOGLOBIN 9.8 g/dL (14.0-18.0); IMM GRAN# 0.56 X1000 (0.0-0.04); IMM GRAN% 2.9 % (0.0-0.5); LYMPH# 0.93 X1000 (1.2-3.4); LYMPH% 4.9 % (20.5-51.1); MCH 30.2 PG (27-31); MCHC 32.1 g/dL (33-37); MCV 94.1 FL (81-99); MONO# 0.77 X1000 (0.11-0.59); MONO% 4.1 % (1.7-9.3); MPV 10.9 FL (7.4-10.4); NEUT# 16.67 X1000 (1.4-6.5); NEUT% 87.7 % (42.2-75.2); PLT 205 X1000 (130-400); RBC 3.24 XMIL (4.7-6.1); RDW 13.8 % (11.5-14.5); WBC 18.99 X1000 (4.8-10.8)
[2019-01-08 08:55] LABS: BANDS 1 % (0-1); LYMPHS 4 % (21-51); MONO 5 % (1-9); SEGS 89 % (42-75)
[2019-01-08 09:00] LABS: ALBUMIN 3.6 g/dL (3.5-5.0); CALCIUM 8.9 mg/dL (8.8-10.2); CREATININE 3.1 mg/dL (0.7-1.2); PHOSPHORUS 4.1 mg/dL (2.7-4.5); POTASSIUM 4.4 mmol/L (3.5-5.1)
[2019-01-08] MEDS: ISORDIL PO SCH ×3 (09:00→16:18)
[2019-01-08] MEDS: ICAR-C PO SCH ×2 (09:00→21:09)
[2019-01-08] MEDS: CYMBALTA PO SCH (09:00)
[2019-01-08] MEDS: ASPIRIN PO SCH (09:00)
[2019-01-08] MEDS: LOPRESSOR PO SCH ×2 (09:00→21:09)
[2019-01-08] MEDS: SODIUM BICARBONATE PO SCH ×2 (09:00→21:09)
[2019-01-08] MEDS: FISH OIL CONCENTRATE PO SCH (09:00)
[2019-01-08] MEDS: CASODEX PO SCH (09:00)
[2019-01-08] MEDS: CULTURELLE PO SCH ×2 (09:00→21:09)
[2019-01-08] MEDS: PLAVIX PO SCH (09:00)
[2019-01-08] MEDS: LOVENOX SUBQ SCH (09:01)
--- NOTE | 2019-01-08 09:05 | PROGRESS NOTE ---
DATE: 01/08/2019 SUBJECTIVE: The patient may be slightly improved in regard to his mentation but he still remains confused, some mildly garbled speech which persists. OBJECTIVE: Vital signs: Afebrile. Blood pressure is elevated at 154/83, respirations 15, pulse 66. Cardiovascular: Regular rate and rhythm. Lungs: Rhonchi right upper lung field and decreased breath sounds at the left lower lung field. Abdomen: Protuberant, soft. Active bowel sounds. Nontender, nondistended. Extremities: No calf tenderness, cords or edema. Neurologic: Patient is alert and oriented x2. He moves all extremities well. Might be minimal right mouth droop and again, speech may be slightly affected. 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 LABORATORY DATA: This morning is pending his CBC and renal profile. ASSESSMENT: 1. Delirium. Initially thought that was possibly related to steroid administration, so I had weaned him down quickly and off the steroids. Might be slightly improved off the steroids. Does not appear to be necessarily any withdrawal symptoms although and I am not aware of any drugs he has been using at home that might have precipitated this, but it did occur in a timeframe that would be possible. It may simply be related to the pneumonia and other multiple medical problems he has been experiencing. 2. Probable aspiration pneumonia on top of previously diagnosed pneumonia that was improving quickly on treatment, that has now had a setback over the past 2 days. 3. Chronic renal insufficiency with prerenal azotemia, the latter which is improving with rehydration. 4. Acute on chronic systolic congestive heart failure, compensated. 5. History of non-Q-wave myocardial infarction during the early part of this hospitalization with medical management per Cardiology. 6. Frequent falls. 7. Moderate aortic stenosis. 8. Mild mitral regurgitation and tricuspid regurgitation. 9. Paroxysmal atrial fibrillation, on Plavix and aspirin. Not deemed to be a candidate for higher dose anticoagulation due to history of gastrointestinal bleeds, recently heme-positive stool and frequent falls. 10. Heme-positive stool with no signs of active gastrointestinal bleeding. 11. Venous stasis dermatitis left lower extremity. 12. Multiple abrasions and contusions, resolving. 13. Permanent pacemaker. 14. History of prior moderate coronary artery disease. 15. Hypertension. 16. Hyperlipidemia. 17. Cerebrovascular disease with history of prior carotid endarterectomy 2009. 18. Obstructive sleep apnea on CPAP. 19. Osteoarthritis. PLAN: We will check ABG to rule out hypercapnia. We had changed his antibiotics to vancomycin and meropenem for possible aspiration/hospital-acquired pneumonia. He remains on nebulizer treatments with bronchodilators. We had tapered him off the steroids and he is off of that now. He has not been receiving any Lasix since admission. He did receive 1 dose early in admission. He is receiving some lactated Ringer's per Nephrology and his prerenal state is improving. Overall, mentation is a little better today than it has been the last couple of days but is still concerning. He has had 2 CT scans without contrast which have been negative for bleeds and ischemic strokes. We will ask Dr. Salas to see the patient and assess. cc: Doron Rowe MD
[2019-01-08] MEDS: PATIENT'S OWN MED PO SCH (10:13)
--- NOTE | 2019-01-08 11:29 | CONSULTATION ---
DATE OF CONSULTATION: 01/08/2019 Mr. Hlal is 83 years old, and there is reported recent mental change. History from review of the hospital chart and lengthy discussion with attentive at the bedside is that he has been forgetful in recent months, gradually more prominent. He seemed much worse after hospitalization. He has had some hallucinations. He has had some agitated behavior, removing his clothes, removing his catheter. There is history of gait difficulty going on for the last few years, initially attributed to orthopedic problems. In the last several months gait has declined. describes apraxia. There have been some occasions in recent months when found him hard to keep alert. There was never complete unresponsiveness or unconsciousness. There has been no focal neurologic feature. There is no history of stroke. He has had some falls, and believes he bumped his head once, a week or so before admission, but there was never documented altered awareness or unconsciousness. He has not had any other serious head injury. He has never had diagnosed seizure other neurologic event. He does not use ethanol. reports the patient takes care of his own medicines at home. My count of the list provided on admission is that he has 20 medications and supplements to take daily. believes he took care of that without error. She believes that "muscle relaxer" was added recently, but she does not know the name of that medicine. His medicine list includes baclofen and that may have been the recent addition. She does not know of any other recent medication changes. Workup here includes noncontrast CT on 12/30/2018, repeated 01/04/2019. These were both unremarkable, showing typical age-related atrophy and white matter changes but nothing focal or acute, no bleeding, no change in the interval between the scans. Lab shows BUN 43 on admission, gradually climbing to the 120s and back to the 80s now. He has had some moderately elevated BUN recorded over several years. Sodium has climbed to 153 today. Blood sugars have been mostly mid 100s to low 200s in recent days. He has been afebrile. On exam, Mr. Hall is awake. He was alert during most of my interview. He answered some questions appropriately. He seemed exhausted and became inattentive during the interview. He followed simple commands and he followed commands requiring right/left distinction initially, but with repeated commands, he became inattentive. Speech is a little bit dysarthric but easily understood. Remote memory is fair. Recent memory is poor. He did not name the facility completely or correctly, but he did give me the components of the hospital name. He did not ever report that this is a hospital. He did not name the President. He did not provide the correct date. I did not test cognitive function further. Head and neck are unremarkable. There is no meningismus. He has full visual jay tested grossly by confrontational finger counting with both eyes open. Extraocular movements are good horizontally. He has slightly diminished upgaze typical for age. Facial motility is diminished bilaterally, but symmetric. Gag is intact. Tongue is midline. He can hear. Strength is normal in the arms and legs. He has some discomfort limiting effort at times in the legs. Limb tone is symmetric. He did well on [id number] testing bilaterally. I did not test his gait. He reports good pinprick appreciation over the feet. Reflexes are 2+ at the ankles symmetrically. Plantar response is silent bilaterally. IMPRESSION: 1. Global encephalopathy. This sounds like a baseline cognitive impairment syndrome, with acute/subacute exacerbation associated with hospitalization, uremia, possibly other metabolic problems, possibly medication effects. I discussed at length with the risk for more prominent and more protracted encephalopathy with any toxic or metabolic disturbance in this setting. We might consider cholinesterase inhibitor trial electively, but that would not typically be associated with quick benefit. 2. 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 3. Recent hallucinations. This is probably psychosis associated with delirium as part of the acute/subacute exacerbation of his cognitive impairment. He had 1 dose of ziprasidone a few days ago and if that provided benefit, we could repeat that when needed. If hallucination and/or agitation become prominent and are not satisfactorily controlled with ziprasidone, cautious trial with low-dose other antipsychotic medicine might be considered, usually starting with quetiapine. 4. Blood sugars are elevated but I am not sure that diabetes mellitus has been diagnosed in the past. I do not see definite clinical evidence of peripheral neuropathy. Thank you for asking Neurology to see Mr. Hall. cc: MD Doron Reynolds III, MD MTDD
[2019-01-08] MEDS ORDERED: D5 IV SCH (11:45)
[2019-01-08] MEDS ORDERED: POTASSIUM CHLORIDE IV SCH (11:45)
[2019-01-08] MEDS ORDERED: 1/4 NS IV SCH (11:45)
[2019-01-08 11:49] LABS: BLOOD TYPE ARTERIAL; SAMPLE BLOOD
[2019-01-08 11:50] LABS: ALLEN TEST YES; BE -8.2 mmoll (-3.0-3.0); HCO3-(ACT) 18.5 mmoll (20.0-26.0); METHB 1.7 % (0.0-1.5); MODALITY ROOM AIR; O2(CT) 12.1 mL/dL (15.0-23.0); PCO2(98.6) 24 mmHg (35-45); PO2(98.6) 62 mmHg (60-100); SAO2 95.2 % (95.0-100.0); THB 9.3 g/dL (11.5-17.4); pH(98.6) 7.41 (7.35-7.45)
[2019-01-08] MEDS: PROSCAR PO SCH (21:09)
[2019-01-08] MEDS: GLUCOSAMINE 500 MG/CHONDROITIN 400 MG PO SCH (21:09)
[2019-01-09] MEDS: DUONEB (A & A) INH SCH ×6 (03:20→23:22)
[2019-01-09] MEDS: PROTONIX PO SCH (06:36)
[2019-01-09] MEDS: MERREM 1 GM in NS 50 ML IV SCH ×3 (06:36→21:49)
[2019-01-09] MEDS: HUMULIN R SUBQ SCH ×4 (06:38→21:55)
[2019-01-09] MEDS: ADVAIR 250/50 DISKUS INH SCH ×2 (07:21→19:36)
[2019-01-09 07:25] LABS: BASO# 0.02 X1000 (0.0-0.2); BASO% 0.1 % (0.0-0.8); EOS% 0.6 % (0.0-10.0); HEMATOCRIT 29.3 % (42.0-52.0); HEMOGLOBIN 9.3 g/dL (14.0-18.0); IMM GRAN# 0.27 X1000 (0.0-0.04); IMM GRAN% 1.7 % (0.0-0.5); LYMPH# 0.87 X1000 (1.2-3.4); LYMPH% 5.4 % (20.5-51.1); MCHC 31.7 g/dL (33-37); MCV 94.5 FL (81-99); MONO# 0.65 X1000 (0.11-0.59); MPV 10.5 FL (7.4-10.4); NEUT# 14.34 X1000 (1.4-6.5); NEUT% 88.2 % (42.2-75.2); PLT 184 X1000 (130-400); RDW 13.9 % (11.5-14.5); WBC 16.25 X1000 (4.8-10.8)
[2019-01-09 07:40] LABS: ALBUMIN 3.5 g/dL (3.5-5.0); CALCIUM 9.1 mg/dL (8.8-10.2); CREATININE 3.2 mg/dL (0.7-1.2); PHOSPHORUS 3.8 mg/dL (2.7-4.5)
[2019-01-09] MEDS: LOVENOX SUBQ SCH (09:46)
[2019-01-09] MEDS: PLAVIX PO SCH (09:47)
[2019-01-09] MEDS: ISORDIL PO SCH ×3 (09:47→18:39)
[2019-01-09] MEDS: SODIUM BICARBONATE PO SCH ×2 (09:47→21:55)
[2019-01-09] MEDS: CULTURELLE PO SCH ×2 (09:47→21:57)
[2019-01-09] MEDS: ASPIRIN PO SCH (09:47)
[2019-01-09] MEDS: CYMBALTA PO SCH (09:47)
[2019-01-09] MEDS: FISH OIL CONCENTRATE PO SCH (09:47)
[2019-01-09] MEDS: CASODEX PO SCH (09:47)
[2019-01-09] MEDS: LOPRESSOR PO SCH ×2 (09:47→21:56)
[2019-01-09] MEDS: ICAR-C PO SCH ×2 (09:47→21:56)
[2019-01-09] MEDS: PATIENT'S OWN MED PO SCH (09:48)
--- NOTE | 2019-01-09 12:48 | PROGRESS NOTE ---
DATE: 01/09/2019 SUBJECTIVE: Mr. Hall has aspiration pneumonia. He is still confused and has prerenal azotemia. At present, his vital signs reveal temperature of 99 degrees Fahrenheit, and blood pressure is 176/77. He is still confused and has severe congestion in the chest. His white count was 16.25, hemoglobin 9.3, hematocrit 29.2. Sodium 155. BUN has been 76, creatinine is 3.2. He has global encephalopathy. He also has some hallucinations with aspiration pneumonia. He has been on IV vancomycin and meropenem. We will continue the current management on him. cc: MD Doron Lafleur MD
--- NOTE | 2019-01-09 13:20 | NEPHROLOGY PROGRESS NOTE ---
DATE: 01/09/2019 SUBJECTIVE: He is about the same. Intermittent confusion. Moves constantly. His states that he coughs severely when he eats, but also at other times as well. OBJECTIVE: Vital Signs: Blood pressure 184/86, heart rate 65, respirations 19, afebrile. General: No acute distress. Skin: Warm and dry. Eyes: Conjunctivae are pink. Neck: Neck veins are not distended. Heart: Regular. No gallops. Lungs: Equal. No crackles. Rhonchi are present. Abdomen: Soft, nontender. Bowel sounds present. Extremities: Have 1+ edema around the hips. No clubbing or cyanosis. IMPRESSION: 1. Acute kidney injury overlying chronic kidney disease. Creatinine 3.2 today. Roughly stable over the last 3 days. Creatinine 1.8 on presentation which is likely his baseline. Good urine output. Volume status appeared acceptable on exam. Albumin 3.5 today. No changes. 2. Hypernatremia. We will change his intravenous fluids to D 5 water at 100 mL an hour. 3. Possible aspiration. I will hold his oral intake and order a swallowing study for tomorrow. cc: MD Doron Teran MD
[2019-01-09] MEDS: VANCOMYCIN 1 GM/NS 1 GM/250 ML IVPB IV SCH (15:00)
[2019-01-09] MEDS: D5W 1,000 ML IV SCH (18:38)
[2019-01-09] MEDS: LABETALOL IV PRN (21:49)
[2019-01-09] MEDS: PROSCAR PO SCH (21:55)
[2019-01-09] MEDS: GLUCOSAMINE 500 MG/CHONDROITIN 400 MG PO SCH (21:56)
[2019-01-10] MEDS: DUONEB (A & A) INH SCH ×6 (03:28→23:26)
[2019-01-10] MEDS: MERREM 1 GM in NS 50 ML IV SCH ×3 (05:30→21:14)
[2019-01-10] MEDS: PROTONIX PO SCH (06:10)
[2019-01-10] MEDS: HUMULIN R SUBQ SCH ×4 (06:37→21:00)
[2019-01-10 07:21] LABS: BASO# 0.01 X1000 (0.0-0.2); BASO% 0.1 % (0.0-0.8); EOS# 0.22 X1000 (0.0-0.7); EOS% 1.6 % (0.0-10.0); HEMATOCRIT 29.4 % (42.0-52.0); HEMOGLOBIN 9.2 g/dL (14.0-18.0); IMM GRAN# 0.14 X1000 (0.0-0.04); LYMPH# 0.84 X1000 (1.2-3.4); LYMPH% 6.2 % (20.5-51.1); MCH 29.9 PG (27-31); MCHC 31.3 g/dL (33-37); MCV 95.5 FL (81-99); MONO# 0.68 X1000 (0.11-0.59); MPV 10.5 FL (7.4-10.4); NEUT# 11.65 X1000 (1.4-6.5); NEUT% 86.1 % (42.2-75.2); PLT 153 X1000 (130-400); RBC 3.08 XMIL (4.7-6.1); RDW 13.8 % (11.5-14.5); WBC 13.54 X1000 (4.8-10.8)
[2019-01-10] MEDS: ADVAIR 250/50 DISKUS INH SCH ×2 (07:30→19:33)
[2019-01-10 07:38] LABS: BANDS 4 % (0-1); LYMPHS 6 % (21-51); MONO 2 % (1-9); SEGS 88 % (42-75)
[2019-01-10 07:41] LABS: ALBUMIN 3.1 g/dL (3.5-5.0); CALCIUM 8.5 mg/dL (8.8-10.2); CREATININE 2.7 mg/dL (0.7-1.2); PHOSPHORUS 3.6 mg/dL (2.7-4.5); POTASSIUM 4.1 mmol/L (3.5-5.1)
[2019-01-10] MEDS: LOVENOX SUBQ SCH (09:48)
[2019-01-10] MEDS: LABETALOL IV PRN (09:49)
[2019-01-10] MEDS: D5W 1,000 ML IV SCH ×3 (09:53→17:16)
--- NOTE | 2019-01-10 11:42 | PROGRESS NOTE ---
DATE: 01/10/2019 SUBJECTIVE: The patient has had his best day today he has had in quite some time. He is alert and talkative with his family. He is actually joking with me today. He had coughed up some prominent thick phlegm early this morning per his son's report. Overall seems to be improving. He does have a barium swallow with video evaluation for later today ordered. OBJECTIVE: Vital signs: Afebrile, pulse 77, blood pressure 177/77, O2 saturation room air 96%. Cardiovascular: Regular rate and rhythm. Lungs: Fairly clear. Abdomen: Protuberant. Active bowel sounds. Soft, nontender, nondistended. Extremities: No calf tenderness, cords or edema. Neurologic: Cranial nerves 2-12 are intact. Moves all extremities well. Still has very minimal confusion but overall much improved today. He knows me, shakes my hand, talks with his family well. Alert and oriented x3. LABORATORY DATA: White count has declined from 51569 on 01/05/2019 to 13.5 today, hemoglobin 9.2 and stable, platelets 153,000. Blood cultures x2 are negative at 5 days. Sodium is 154 down from 155 yesterday on D5W, potassium 4.1, chloride 122, CO2 18, BUN 61, creatinine 2.7, phosphorus 3.6, calcium 8.5, albumin 3.1. ASSESSMENT: 1. Delirium, improving, thought multifactorial. 2. Possible baseline mild dementia. 3. Aspiration pneumonia, improving with meropenem and vancomycin. 4. Chronic renal insufficiency with concomitant prerenal azotemia, the latter which is improving with rehydration slowly. 5. Acute on chronic systolic congestive heart failure, compensated. 6. History of non-Q-wave myocardial infarction early in the hospital course with medical management, stable. 7. Frequent falls prior to admission. 8. Moderate aortic stenosis. 9. Mild mitral regurgitation and tricuspid regurgitation. 10. Paroxysmal atrial fibrillation, on Plavix and aspirin therapy. 11. History of heme-positive stool early in the hospital course with no signs of active gastrointestinal bleeding. 12. Mild anemia of chronic disease, possibly worsened by heme-positive stool, but this is not declining at this stage. 13. Venous stasis dermatitis, left lower extremity. 14. Abrasions and contusions, resolved. 15. Permanent pacemaker. 16. Coronary artery disease. 17. Hypertension. 18. Hyperlipidemia. 19. Cerebrovascular disease with history of prior carotid endarterectomy 2009. 20. Obstructive sleep apnea, on CPAP. 21. Osteoarthritis. 22. Hypernatremia. PLAN: Continue D5W as per Nephrology. Continue to follow his labs. He is scheduled for barium swallow today. Chest x-ray also ordered for today. We will continue DuoNeb and antibiotics of meropenem and vancomycin as he seems to be improving. We will resume his Norvasc, continue Lopressor orally with p.r.n. labetalol if blood pressures are markedly elevated. He is on low- dose sodium bicarbonate per Nephrology. We will continue to follow the patient clinically with possible rehab next week if things go well. cc: Doron Rowe MD
--- NOTE | 2019-01-10 12:28 | Diag Imaging Result Doc PS360 ---
EXAM: CHEST-2 VIEWS 01/10/2019 HISTORY: pna TECHNIQUE: PA and lateral chest COMMENT: There is blunting of both costophrenic angles. There is cardiomegaly. There is increased interstitial markings. Compared to the previous examination of 01/07/2019 the alveolar opacity in the lower portion of the right upper lobe has diminished. IMPRESSION: Improved right upper lobe pneumonia. Cardiomegaly and pulmonary edema. Electronically signed by Jason Mcdaniel 01/10/2019 12:25 PM
--- NOTE | 2019-01-10 12:30 | Diag Imaging Result Doc PS360 ---
EXAM: BA SWALLOW W/VIDEO SPEECH THER 01/09/2019 HISTORY: aspiration pneumonia, cough with po intake TECHNIQUE: Modified barium swallow, 163 images, 40.5 seconds fluoroscopy time, 46 mGy. COMMENT: There is no evidence of aspiration. There is some decreased tone in the pharynx with pooling of contrast in the vallecula. There is no evidence of obstruction or stricture in the thoracic esophagus. IMPRESSION: No evidence of aspiration. Electronically signed by Jason Mcdaniel 01/10/2019 12:28 PM
--- NOTE | 2019-01-10 13:46 | PROGRESS NOTE ---
DATE: 01/10/2019 Mr. Hall is clearly brighter today. He is much more alert, more attentive, answering questions more briskly today than yesterday. Speech is dysarthric but more easily understood today. Family at the bedside agree he is improved. We discussed baseline apraxia at some length and daughter confirms description fits his recent gait difficulty. I do not have any new suggestion today or anything to add to suggestions made in initial neurology consult note 2 days ago. Thanks for asking us to see Mr. Hall. cc: MD Doron Reynolds III, MD MTDD
--- NOTE | 2019-01-10 13:56 | NEPHROLOGY PROGRESS NOTE ---
DATE: 01/10/2019 SUBJECTIVE: He is alert, hungry, complaining about his n.p.o. status. He is about to go down for his swallowing study. OBJECTIVE: Vital Signs: Blood pressure 185/76, heart rate 69, respirations 22, afebrile. General: No acute distress. Skin: Warm and dry. Eyes: Conjunctivae are pink. Neck: Neck veins are not distended. Heart: Regular. No gallops. Lungs: Equal. No crackles. Abdomen: Soft, nontender. Bowel sounds present. Extremities: No edema, clubbing or cyanosis. IMPRESSION: 1. Acute kidney injury. Creatinine modestly improved today with excellent urine output. 2. Hypernatremia. No real change. Continue D5W. 3. Possible aspiration. Swallowing study today. cc: MD Doron Teran MD
[2019-01-10] MEDS: CASODEX PO SCH (14:07)
[2019-01-10] MEDS: ISORDIL PO SCH ×3 (14:07→19:03)
[2019-01-10] MEDS: CYMBALTA PO SCH (14:08)
[2019-01-10] MEDS: PLAVIX PO SCH (14:08)
[2019-01-10] MEDS: ASPIRIN PO SCH (14:08)
[2019-01-10] MEDS: NORVASC PO SCH (14:08)
[2019-01-10] MEDS: FISH OIL CONCENTRATE PO SCH (14:08)
[2019-01-10] MEDS: ICAR-C PO SCH ×2 (14:09→21:00)
[2019-01-10] MEDS: LOPRESSOR PO SCH ×2 (14:09→21:00)
[2019-01-10] MEDS: CULTURELLE PO SCH ×2 (14:09→21:00)
[2019-01-10] MEDS: PATIENT'S OWN MED PO SCH (14:09)
[2019-01-10] MEDS: SODIUM BICARBONATE PO SCH ×2 (14:09→21:00)
[2019-01-10] MEDS: GLUCOSAMINE 500 MG/CHONDROITIN 400 MG PO SCH (21:00)
[2019-01-10] MEDS: PROSCAR PO SCH (21:00)
[2019-01-11] MEDS: DUONEB (A & A) INH SCH ×6 (03:12→23:35)
[2019-01-11] MEDS: MERREM 1 GM in NS 50 ML IV SCH ×3 (06:33→20:38)
[2019-01-11] MEDS: D5W 1,000 ML IV SCH ×3 (06:33→16:03)
[2019-01-11] MEDS: HUMULIN R SUBQ SCH ×4 (06:34→20:20)
[2019-01-11] MEDS: PROTONIX PO SCH (06:34)
[2019-01-11] MEDS: ADVAIR 250/50 DISKUS INH SCH ×2 (07:22→19:33)
[2019-01-11] MEDS: ISORDIL PO SCH ×3 (08:34→17:17)
[2019-01-11] MEDS: CULTURELLE PO SCH ×2 (08:34→20:23)
[2019-01-11] MEDS: CYMBALTA PO SCH (08:35)
[2019-01-11] MEDS: CASODEX PO SCH (08:35)
[2019-01-11] MEDS: SODIUM BICARBONATE PO SCH ×2 (08:35→20:37)
[2019-01-11] MEDS: PATIENT'S OWN MED PO SCH (08:35)
[2019-01-11] MEDS: ASPIRIN PO SCH (08:35)
[2019-01-11] MEDS: LOPRESSOR PO SCH ×2 (08:35→20:37)
[2019-01-11] MEDS: NORVASC PO SCH (08:35)
[2019-01-11] MEDS: ICAR-C PO SCH ×2 (08:35→20:23)
[2019-01-11] MEDS: PLAVIX PO SCH (08:35)
[2019-01-11] MEDS: FISH OIL CONCENTRATE PO SCH (08:35)
[2019-01-11] MEDS: LOVENOX SUBQ SCH (11:38)
[2019-01-11] MEDS: APRESOLINE PO SCH ×2 (13:35→17:17)
--- NOTE | 2019-01-11 13:47 | PROGRESS NOTE ---
DATE: 01/11/2019 VITAL SIGNS: Temperature 97.7 degrees, heart rate 68, respirations 18, blood pressure 179/82. O2 sat on 2 liters nasal oxygen 100%. LABORATORY: Yesterday, white blood count was 13,500 and hematocrit 29.4. Yesterday, BUN was 61 and creatinine 2.7. Albumin was 3.1. 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 Family states that it has been several days since he has been able to stand. Last chest x-ray on 12/[address] scan of his head on 01/04 revealed no evidence of acute intracranial disease. This was done because of some new onset facial drooping. This seems to have resolved. He had a swallowing study 01/09 which showed no aspiration. On 01/07, he had patchy bilateral pneumonia and cardiomegaly. Yesterday showed improved right upper lobe pneumonia. There is history of frequent falls at home and he uses a cane. Rehab at discharge. Social Service consult is obtained. Due to his hypertension, Apresoline is added, 25 mg p.o. t.i.d. cc: MD Doron Mcintosh MD
--- NOTE | 2019-01-11 14:55 | NEPHROLOGY PROGRESS NOTE ---
DATE: 01/11/2019 SUBJECTIVE: He passed a swallowing test and he has been eating well. No nausea, shortness of breath, etc. OBJECTIVE: Vital Signs: Blood pressure 179/82, heart rate 68, respiration 18, afebrile. Generally: No acute distress. Skin: Warm and dry. Conjunctivae are pink. Neck: Neck veins are not distended. Heart: Regular. No gallops. Lungs: Equal. No crackles. Abdomen: Soft, nontender. Extremities: Have no edema, clubbing or cyanosis. IMPRESSION: Acute kidney injury. No new data today. Continue D5 water. Repeat labs in the morning. cc: MD Doron Teran MD
[2019-01-11] MEDS: VANCOMYCIN 1 GM/NS 1 GM/250 ML IVPB IV SCH (16:03)
[2019-01-11] MEDS: PROSCAR PO SCH (20:23)
[2019-01-11] MEDS: GLUCOSAMINE 500 MG/CHONDROITIN 400 MG PO SCH (20:23)
[2019-01-12] MEDS: DUONEB (A & A) INH SCH ×6 (03:58→23:24)
[2019-01-12] MEDS: MERREM 1 GM in NS 50 ML IV SCH ×5 (05:01→20:07)
[2019-01-12] MEDS: D5W 1,000 ML IV SCH ×2 (05:02→18:22)
[2019-01-12] MEDS: HUMULIN R SUBQ SCH ×4 (07:05→22:12)
[2019-01-12] MEDS: PROTONIX PO SCH (07:06)
[2019-01-12] MEDS: ADVAIR 250/50 DISKUS INH SCH ×2 (08:19→19:32)
[2019-01-12] MEDS: SODIUM BICARBONATE PO SCH ×2 (09:35→20:08)
[2019-01-12] MEDS: ASPIRIN PO SCH (09:35)
[2019-01-12] MEDS: FISH OIL CONCENTRATE PO SCH (09:35)
[2019-01-12] MEDS: PLAVIX PO SCH (09:36)
[2019-01-12] MEDS: ISORDIL PO SCH ×3 (09:36→18:23)
[2019-01-12] MEDS: CYMBALTA PO SCH (09:36)
[2019-01-12] MEDS: ICAR-C PO SCH ×2 (09:36→20:07)
[2019-01-12] MEDS: LOPRESSOR PO SCH ×2 (09:36→20:02)
[2019-01-12] MEDS: APRESOLINE PO SCH ×3 (09:36→18:23)
[2019-01-12] MEDS: CULTURELLE PO SCH ×2 (09:36→20:07)
[2019-01-12] MEDS: NORVASC PO SCH (09:36)
[2019-01-12] MEDS: LOVENOX SUBQ SCH (09:36)
[2019-01-12] MEDS: PATIENT'S OWN MED PO SCH (09:37)
[2019-01-12] MEDS: CASODEX PO SCH (09:37)
--- NOTE | 2019-01-12 10:09 | PROGRESS NOTE ---
DATE: 01/12/2019 VITAL SIGNS: Stable with temperature 97.7 degrees, heart rate 60, respirations 18, blood pressure 151/73, O2 saturation on 3 L nasal oxygen is 99%. LABORATORY DATA: Hemoglobin 9.2, hematocrit 29.4, white blood count 13,500 with 86% neutrophils. Renal profile, lab, is pending. SUBJECTIVE: He continues to be weak and somewhat short of breath. Breath sounds are improving. There is no ankle edema. PLAN: Continue current therapy. He will need rehab at discharge. cc: MD Doron Mcintosh MD
[2019-01-12] MEDS: PROSCAR PO SCH (20:02)
[2019-01-12] MEDS: GLUCOSAMINE 500 MG/CHONDROITIN 400 MG PO SCH (20:08)
[2019-01-13] MEDS: DUONEB (A & A) INH SCH ×6 (03:40→22:32)
[2019-01-13] MEDS: D5W 1,000 ML IV SCH ×2 (06:36→15:31)
[2019-01-13] MEDS: MERREM 1 GM in NS 50 ML IV SCH ×3 (06:36→21:22)
[2019-01-13] MEDS: PROTONIX PO SCH (06:40)
[2019-01-13] MEDS: HUMULIN R SUBQ SCH ×4 (06:40→23:21)
[2019-01-13 07:17] LABS: HEMATOCRIT 25.3 % (42.0-52.0); MCH 30.4 PG (27-31); MCHC 31.6 g/dL (33-37); MCV 96.2 FL (81-99); MPV 10.9 FL (7.4-10.4); RBC 2.63 XMIL (4.7-6.1); RDW 12.9 % (11.5-14.5); WBC 10.03 X1000 (4.8-10.8)
[2019-01-13 07:40] LABS: ALBUMIN 2.6 g/dL (3.5-5.0); CALCIUM 7.8 mg/dL (8.8-10.2); CREATININE 2.5 mg/dL (0.7-1.2); PHOSPHORUS 3.8 mg/dL (2.7-4.5); POTASSIUM 3.4 mmol/L (3.5-5.1)
[2019-01-13] MEDS: ADVAIR 250/50 DISKUS INH SCH ×2 (07:44→19:32)
--- NOTE | 2019-01-13 08:44 | PROGRESS NOTE ---
DATE: 01/13/2019 SUBJECTIVE: Overall mentation has improved but still has very minimal confusion. He inquires about getting his Lopez catheter out. He is having some soreness in his mouth. OBJECTIVE: Afebrile. Vital signs stable. Mildly elevated blood pressure. CV: Irregularly irregular. Lungs: Minimal crackles in the right lung base. Otherwise CTA. Abdomen: Soft, nontender, nondistended. Extremities: No calf tenderness, cords, or edema. Neurologic: Cranial nerves 2-12 are intact. He moves all extremities well. Minimal confusion, near baseline. Laboratory Data: Sodium 142, potassium 3.4, chloride 112, CO2 of 19, BUN 44, creatinine 2.5. Blood sugars low 100s. Phosphorus 3.8, calcium 7.8, albumin 2.6. White count 10, hemoglobin 8.0 which has declined from around 9.2, platelets 124,000. There are some minimal, small ulcerations in the oropharynx, primarily posteriorly on the right, mild hyperemia diffuse. Chest x-ray done 01/10/2019 reveals improved right upper lobe pneumonia. ASSESSMENT: 1. Delirium, multifactorial, improving. 2. Baseline mild dementia. 3. Aspiration pneumonia on the right with normal swallowing studies, improving on meropenem and vancomycin. 4. Chronic renal insufficiency with concomitant prerenal azotemia, improving with rehydration with D5W. 5. Possible thrush. 6. Acute on chronic systolic congestive heart failure, compensated. 7. History of non-Q-wave myocardial infarction early in the hospital course, stable on management. 8. Anemia with heme-positive stools earlier in the hospitalization. Hemoglobin continues to decline. 9. Frequent falls prior to admission. 10. Moderate aortic stenosis. 11. Mild mitral regurgitation and tricuspid regurgitation. 12. Paroxysmal atrial fibrillation, on Plavix and aspirin per cardiology. 13. Anemia of chronic disease, worsened by recent heme-positive stool and blood draws. 14. Venous stasis dermatitis of left lower extremity, stable. 15. Permanent pacemaker. 16. Coronary artery disease. 17. Hypertension. 18. Hyperlipidemia. 19. Remote cerebrovascular disease with a history of prior carotid endarterectomy in 2009. 20. Obstructive sleep apnea, on CPAP. 21. Osteoarthritis. PLAN: Due to the mild thrombocytopenia and worsened anemia, we will stop the prophylactic dose of Lovenox. Continue aspirin and Plavix at this point. We will ask Dr. Kiko to see the patient to see if he needs GI workup. student services director working on placement for rehab. Continue D5W per nephrology, monitoring his potassium closely. Continue antibiotics and DuoNebs currently. He is on Lopressor, Norvasc, and hydralazine for his blood pressure and that is improving. He remains on sodium bicarbonate per nephrology. Continue physical therapy. Try to discontinue his Lopez. We will add nystatin orally for his thrush and follow that. cc: Doron Rowe MD
[2019-01-13] MEDS: ASPIRIN PO SCH (08:45)
[2019-01-13] MEDS: MYCOSTATIN SUSP PO SCH ×4 (08:45→21:20)
[2019-01-13] MEDS: MIRALAX PO SCH (08:45)
[2019-01-13] MEDS: CASODEX PO SCH (08:45)
[2019-01-13] MEDS: ICAR-C PO SCH ×2 (08:45→21:22)
[2019-01-13] MEDS: SODIUM BICARBONATE PO SCH ×2 (08:45→21:20)
[2019-01-13] MEDS: CULTURELLE PO SCH ×2 (08:46→21:21)
[2019-01-13] MEDS: PLAVIX PO SCH (08:46)
[2019-01-13] MEDS: CYMBALTA PO SCH (08:46)
[2019-01-13] MEDS: APRESOLINE PO SCH ×3 (08:46→18:18)
[2019-01-13] MEDS: NORVASC PO SCH (08:46)
[2019-01-13] MEDS: FISH OIL CONCENTRATE PO SCH (08:46)
[2019-01-13] MEDS: ISORDIL PO SCH ×3 (08:46→18:17)
[2019-01-13] MEDS: LOPRESSOR PO SCH ×2 (08:46→21:21)
[2019-01-13] MEDS: PATIENT'S OWN MED PO SCH (08:47)
--- NOTE | 2019-01-13 13:20 | Diag Imaging Result Doc PS360 ---
EXAM: CHEST-2 VIEWS HISTORY: pna follow up TECHNIQUE: Chest two views COMPARISON: None. FINDINGS: Poor inspiratory effort. The heart is enlarged. There is pulmonary edema and small pleural effusions. There is a left-sided pacemaker. No definite pneumonia identified. IMPRESSION: Cardiomegaly with pulmonary edema and pleural effusions consistent with congestive failure. Electronically signed by Yobany Riley 01/13/2019 1:17 PM
--- NOTE | 2019-01-13 14:57 | NEPHROLOGY PROGRESS NOTE ---
DATE: 01/13/2019 TIME SEEN: 0650. SUBJECTIVE: Mr. Hall is resting quietly in bed. The head of the bed is elevated. States that he is hoping to go home today or to rehab. OBJECTIVE: His most recent vital signs, patient's last temperature 97.7 degrees, blood pressure 135/54, heart rate 61, respirations 18. He is on 3 L nasal cannula. Last recorded saturation 98%. He has had 1402 in. He has had 450 mL out to Lopez catheter. Labs: Sodium 142, potassium 3.4, chloride is 112, CO2 is 19, BUN 44, creatinine 2.5, glucose 116, his anion gap is 11, his calcium is 7.8, phosphorus 3.8, albumin is 2.6. White count 10.03, hemoglobin 8, hematocrit 25.3, with a platelet count of 124,000. Physical Examination: General: This is an 83-year-old, elderly male. He is resting quietly in bed. He appears chronically ill. He is in no acute distress. His skin is warm and dry. HEENT: Normocephalic, atraumatic. Conjunctivae are pale. He has DIAZ. Mucous membranes are dry. Neck: Supple. Trachea midline. He does have trace JVD. Cardiovascular: Regular rate and rhythm. The patient has an S4. Lungs: Clear to auscultation bilaterally. Equal excursion. The patient is currently on room air. Abdomen: Large, round, soft, nontender. Positive bowel sounds. Genitourinary: Not inspected. Lopez catheter is in place with adequate urine output documented. Extremities: Have 1+ edema. This is mostly around his hip region. No lower extremity edema. No clubbing or cyanosis. Neurological: Alert to person. ASSESSMENT AND PLAN: 1. 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 The patient continues on D5-W at 80 mL an hour secondary to hypernatremia over the weekend. We will continue to monitor. 2. Electrolytes and acid-base balance. These are acceptable. 3. Anemia. This remains low but stable. 4. Pneumonia. This continues to be followed by the primary care. I would like to thank you for allowing us to follow with this patient. Dictated by LIT De La Cruz for Ren Ward MD Face to face encounter, data reviewed, discussed with Shikha Rubio on 01/13/19. I agree with the above assessment and plan of care. cc: LIT De La Cruz MD Stephen W. Harbin, MD MTDD
[2019-01-13] MEDS: VANCOMYCIN 1 GM/NS 1 GM/250 ML IVPB IV SCH (15:32)
--- NOTE | 2019-01-13 16:48 | GASTROENTEROLOGY CONSULTATION ---
DATE: 01/13/2019 CONSULTING PHYSICIAN: Doron Rowe MD REASON FOR CONSULT: Anemia and heme-positive stool. HISTORY: This is an 83-year-old gentleman who was admitted to the hospital on 12/30/2018 with altered mental status and fall. He is currently being treated for aspiration pneumonia and delirium along with some dementia. He has history of chronic atrial fibrillation and he is currently on aspirin and Plavix. During his hospitalization his hemoglobin and hematocrit have dropped down from 12.2 on admission to 8.0 today. He has not seen any signs of active bleeding. He has not noticed any bright red blood per rectum or melena but stool was positive for blood. He tells me that his appetite is poor. He does not want to eat. However, he denies any dysphagia or odynophagia and has not had any abdominal pain, nausea, or vomiting. He is currently on Protonix. He denies any constipation or diarrhea and has not any blood or mucus in his stool. His mental condition, delirium and confusion has improved to some degree. He is currently on antibiotic for his aspiration pneumonia. PAST MEDICAL HISTORY: Significant for hypertension, chronic atrial fibrillation, CHF, hyperlipidemia, coronary artery disease and peripheral vascular disease. He has history endarterectomy. He was also found to have renal insufficiency and aortic stenosis. PAST SURGICAL HISTORY: He has had left carotid endarterectomy. PRP, total knee replacement bilateral, and squamous cell carcinoma removed. MEDICATION: Currently patient is on aspirin, Plavix, Protonix, MiraLAX, albuterol, Norvasc, Cymbalta, Proscar, Advair, glucosamine chondroitin, Robitussin, Apresoline, Icar C, Isordil, labetalol, Culturelle, Lopressor, morphine p.r.n., vancomycin and meropenem. ALLERGIES: No known drug allergies. FAMILY HISTORY: Noncontributory. REVIEW OF SYSTEMS: As per HPI as above. PHYSICAL EXAMINATION: General: On examination the patient is lying in bed. He is somnolent but easily arousable. Other than reports of poor appetite, denies any GI symptoms. Vital Signs: Temperature 97.7 degrees, pulse 64 per minute, breathing 16, blood pressure 164/77. HEENT: Head is atraumatic, normocephalic. Eyes: Conjunctivae is normal. Sclerae anicteric. Nares are patent. No discharge noted. He has got nasal cannula in place. Mouth mucosa moist. Throat is normal. Neck: Neck is supple. No lymphadenopathy or thyromegaly. Chest: Bilaterally symmetrical. It is moving with respirations. Breath sounds audible bilaterally, but harsh. No rhonchi or crepitus could be heard. Cardiovascular: [*]murmur. Abdomen: Obese, soft, it is nontender. I could not appreciate masses, [*] no ascites noted. Bowel sounds audible. Extremities: No pedal edema, cyanosis, clubbing was noted. LABORATORIES: Reviewed which showed WBC of 10.03, hemoglobin 8, hematocrit 25.3, MCV 96.2. Platelets were 124, sodium 142, potassium 3.4, chloride 112, bicarbonate 19, BUN is 44, creatinine 2.5. Glucose is 116. IMPRESSION: This is an 83-year-old gentleman with multiple medical problems, currently being treated for aspiration pneumonia and renal insufficiency. He has underlying history of chronic atrial fibrillation, CHF and coronary disease, currently on Plavix and aspirin. He has been found to have heme-positive stool along with drop in his hemoglobin and hematocrit. He does not have any obvious signs of active bleeding, except for heme-positive stool, but he has not had any melena or bright red blood per rectum. At this point, I do not think we need to proceed with any GI intervention which would require him to be sedated and he has to be taken off of Plavix at least for a few days. I would proceed with endoscopic intervention only for therapeutic purposes if he shows signs of active bleeding, and at that time, endoscopy will be done to stop the bleeding. In the meantime, I would recommend to continue proton pump inhibitor, assuming there is gastritis or gastric ulcers that will take care of that. Recheck hemoglobin and hematocrit, transfuse if necessary. Keep hemoglobin above 8. The rest of the medical treatment as per team. I would continue to follow the patient with you while he is in the hospital and depending on his progress further plans will be made. I have explained to the patient my findings and plan. He is in agreement at this point. cc: MD Doron Howard MD
[2019-01-13] MEDS: GLUCOSAMINE 500 MG/CHONDROITIN 400 MG PO SCH (21:21)
[2019-01-13] MEDS: PROSCAR PO SCH (21:22)
[2019-01-14] MEDS: DUONEB (A & A) INH SCH ×6 (03:02→22:35)
[2019-01-14] MEDS: MERREM 1 GM in NS 50 ML IV SCH ×3 (04:10→21:47)
[2019-01-14] MEDS: PROTONIX PO SCH (06:34)
[2019-01-14] MEDS: HUMULIN R SUBQ SCH ×4 (06:34→21:48)
[2019-01-14] MEDS: ADVAIR 250/50 DISKUS INH SCH ×2 (07:17→19:27)
[2019-01-14 07:37] LABS: BASO# 0.01 X1000 (0.0-0.2); BASO% 0.1 % (0.0-0.8); EOS# 0.18 X1000 (0.0-0.7); HEMATOCRIT 27.3 % (42.0-52.0); HEMOGLOBIN 8.6 g/dL (14.0-18.0); IMM GRAN# 0.03 X1000 (0.0-0.04); IMM GRAN% 0.3 % (0.0-0.5); LYMPH# 0.72 X1000 (1.2-3.4); LYMPH% 7.9 % (20.5-51.1); MCH 29.8 PG (27-31); MCHC 31.5 g/dL (33-37); MCV 94.5 FL (81-99); MONO# 0.61 X1000 (0.11-0.59); MONO% 6.7 % (1.7-9.3); MPV 10.8 FL (7.4-10.4); NEUT# 7.52 X1000 (1.4-6.5); PLT 150 X1000 (130-400); RBC 2.89 XMIL (4.7-6.1); RDW 12.7 % (11.5-14.5); WBC 9.07 X1000 (4.8-10.8)
[2019-01-14 07:42] LABS: ALBUMIN 2.8 g/dL (3.5-5.0); CALCIUM 8.6 mg/dL (8.8-10.2); CREATININE 2.5 mg/dL (0.7-1.2); PHOSPHORUS 4.2 mg/dL (2.7-4.5); POTASSIUM 3.9 mmol/L (3.5-5.1)
--- NOTE | 2019-01-14 08:44 | PROGRESS NOTE ---
DATE: 01/14/2019 SUBJECTIVE: Patient alert and talkative with his daughter. She is helping him eat. He still complains of soreness in his mouth, but this may be slightly improved from yesterday since beginning nystatin. No signs of active bleeding. OBJECTIVE: Afebrile. Pulse 65, respirations 17, blood pressure 124/50, and O2 saturation on 2 L 97%.CV: RRR. Lungs: Minimal coarseness. Overall good air movement, much improved overall. Abdomen: Soft, nontender, and nondistended. Extremities: No calf tenderness, cords or edema. Neurologic: Alert and oriented x3. Moves all extremities well near baseline now. May be very minimal confusion. LABORATORY: White count 9, hemoglobin 8.6, and platelets 150,000. Sodium 144, potassium 3.9, chloride 112, CO2 of 19, BUN 43, creatinine 2.5, glucose 96, calcium 8.6, phosphorus 4.2, and albumin 2.8. Chest x-ray done yesterday reveal cardiomegaly with pulmonary edema and pleural effusions consistent with CHF. ASSESSMENT: 1. Delirium resolved. 2. Baseline mild dementia. 3. Aspiration pneumonia on the right, resolving on antibiotics of meropenem and vancomycin for 1 week now. 4. Community-acquired pneumonia, resolved. 5. Hypernatremia, resolved. 6. Chronic renal insufficiency, back to baseline now. 7. Thrush/stomatitis slightly improved. 8. Acute on chronic systolic CHF with slight worsening yesterday after receiving several days of IV antibiotics. We stopped the D5W yesterday, and he has now compensated again. 9. History of non-Q-wave NE on admission with medical management per Cardiology. 10. Anemia with heme-positive stools requiring 2 units PRBC's transfused with a hemoglobin now stabilized at 8.6. 11. Frequent falls prior to admission. 12. Moderate aortic stenosis. 13. Mild MR and TR. 14. Paroxysmal atrial fibrillation on Plavix and aspirin for Cardiology with continuation of those medications. 15. Anemia of chronic disease worsened by recent heme-positive stool and blood draws. 16. Venous stasis dermatitis left lower extremity. 17. Permanent pacemaker. 18. Coronary artery disease. 19. Hypertension. 20. Hyperlipidemia. 21. History of cerebrovascular disease with prior carotid endarterectomy in 2009. 22. CLEMENCIA on CPAP. 23. Osteoarthritis. 24. Thrombocytopenia, resolved with stoppage of Lovenox preventively. PLAN: Continue physical therapy. Continue antibiotics. We will continue nystatin swish and swallow, and try to get the patient to eat more today and mobilize patient. Tomorrow, we will plan on discharging him to the rehab facility if he continues on his present course. Arrangements are being made now. cc: Doron Rowe MD
[2019-01-14] MEDS: MYCOSTATIN SUSP PO SCH ×4 (09:09→21:47)
[2019-01-14] MEDS: ISORDIL PO SCH ×3 (09:09→17:19)
[2019-01-14] MEDS: LOPRESSOR PO SCH ×2 (09:09→21:47)
[2019-01-14] MEDS: NORVASC PO SCH (09:10)
[2019-01-14] MEDS: CASODEX PO SCH (09:10)
[2019-01-14] MEDS: ASPIRIN PO SCH (09:10)
[2019-01-14] MEDS: CYMBALTA PO SCH (09:10)
[2019-01-14] MEDS: SODIUM BICARBONATE PO SCH ×2 (09:10→21:47)
[2019-01-14] MEDS: PLAVIX PO SCH (09:10)
[2019-01-14] MEDS: FISH OIL CONCENTRATE PO SCH (09:10)
[2019-01-14] MEDS: CULTURELLE PO SCH ×2 (09:10→21:47)
[2019-01-14] MEDS: ICAR-C PO SCH ×2 (09:10→21:47)
[2019-01-14] MEDS: APRESOLINE PO SCH ×3 (09:10→17:19)
[2019-01-14] MEDS: PATIENT'S OWN MED PO SCH (11:51)
--- NOTE | 2019-01-14 12:32 | PROVIDER DOCUMENTATION ---
This chart was entered by Yesenia Murphy Scribe, acting as scribe for Ben Chung MD. HPI-Musculoskeletal Pain/Inj - GENERAL Chief Complaint: Fall Stated Complaint: fall Time Seen by Provider: 12/30/18 10:08 Source: patient - HX OF PRESENT ILLNESS-MUSKULOSKELTAL Nature of Presenting Problem: Patient is a 83 year old male who presents to the ED via EMS with pain to bilateral knees, bilateral elbows and upper back. Patient reports tripping and falling last night and laying in the floor all night. States he was too weak to get up. Denies head injury, LOC and neck pain. Reports frequent falls within the last 6 months. Quality of Pain: reports: aching Severity in ED: mild Onset/Duration: last night Timing: still present Any recent injury?: Yes (fall ) Locality of Occurance: Home Similar Symptoms Previously?: Yes Recently seen or treated by another doctor?: No - FALL INJURY Location of Pain/Injury: reports: upper extremity (bilateral elbows), back (up per), lower extremity (bilateral knees) Pain Radiation: reports: no radiation Reason for Fall: reports: tripped Symptoms prior to fall:: reports: none Loss of Consciousness: no loss of consciousness Injury Associated Symptoms: reports: weakness - BACK & NECK PAIN/INJURY Back/Neck Pain Location: reports: T-spine Context / Method of Injury: reports: fall Associated Symptoms: reports: denies symptoms - LOWER EXTREMITY PAIN/INJURY Lower Extremities Pain: knee: bilateral Context / Method of Injury: reports: fell Associated Symptoms: reports: denies symptoms - UPPER EXTREMITY PAIN/INJURY Extremities Pain Location: elbow: bilateral Context / Method of Injury: reports: fell Associated Symptoms: reports: denies symptoms Review of Systems - Adult - REVIEW OF SYSTEMS - ADULT Constitutional: reports: no symptoms reported. denies: chills, fever, fatique Eyes: reports: no symptoms reported Ears, Nose, Mouth & Throat: reports: no symptoms reported Cardiovascular: reports: no symptoms reported Respiratory: reports: no symptoms reported Gastrointestinal: reports: no symptoms reported Genitourinary: reports: no symptoms reported Musculoskeletal: reports: see HPI, back pain (upper), other (pain to bilateral elbows and bilateral knees). denies: muscle aches, neck pain Integumentary: reports: no symptoms reported Neurological: reports: no symptoms reported. denies: headache/migraines, loss of balance, syncope Psychiatric: reports: no symptoms reported Endocrine: reports: no symptoms reported Hematologic/Lymphatic: reports: no symptoms reported Allergic/Immunologic: reports: no symptoms reported All Other Systems: Reviewed and Negative Past History - Adult - PAST MEDICAL HISTORY-ADULT Review of Records: reports: Old Records Reviewed, Nursing Assessment Review, Medications Reviewed, Social history reviewed & non-contributory. Major Childhood Illnesses: reports: denies history Cardiovascular: reports: CAD, CHF, HTN, hyperlipidemia, pacemaker Respiratory: reports: COPD, sleep apnea Gastrointestinal: reports: denies history Obstetrical/Gynecological: reports: denies history Genitourinary: reports: denies history Musculoskeletal: reports: arthritis Neurological: reports: denies history Endocrine/Immune: reports: denies history Other Conditions: reports: denies history - PRIOR SURGERIES/PROCEDURES Surgical/Procedure History: reports: orthopedic (extremity) (total knee repair) - IMMUNIZATION STATUS Childhood Immunizations: See Nurse Assessment Flu Vaccine: See Nurse Assessment - FAMILY HISTORY Family History: reviewed, not pertinent - SOCIAL HISTORY Smoking: cigarettes (former) Substance Use: denies Physical Exam-Injury Related - Physical Exam-Injury Related General Appearance: alert, no apparent distress. negative: lethargic, slow to respond Head, Ears, Nose, Mouth & Throat: normocephalic/atraumatic, moist mucous membranes. negative: angioedema, hearing deficit Neck: non-tender, normal inspection. negative: C-spine tenderness, pain on movement Respiratory: chest non-tender, lungs clear, normal breath sounds. negative: rhonchi, wheezing Cardiovascular: normal peripheral pulses, regular rate, rhythm. negative: tachycardia, systolic murmur Abdominal Exam: normal bowel sounds, non tender, soft. negative: guarding, rigid Back Exam: vertebral tenderness (t-spine). negative: ecchymosis, muscle spasm Extremity: normal range of motion, other (abrasion to right knee. ecchymosis to bilateral elbows.). negative: deformity, swelling Integumentary: normal color, warm/dry, ecchymosis (bilateral elbows), abrasion (right knee). negative: rash, laceration Neurologic: grossly normal. negative: aphasia, facial droop Psych/Mental Status: normal mood/affect, oriented x 3. negative: anxious - Glascow Coma Score Best Eye Response ([place]): (4) open spontaneously Best Verbal Response ([place]): (5) oriented Best Motor Response ([place]): (6) obeys commands [place] Total: 15 Progress - PLAN OF CARE/RESULTS Progress/Plan/Lab Results: Vital Signs - 8 hr 12/30/18 10:06 12/30/18 12:02 12/30/18 12:05 Temperature 98.7 F Pulse Rate 71 71 79 Respiratory Rate 18 22 21 Blood Pressure 152/81 147/85 146/75 O2 Sat by Pulse Oximetry 88 L 92 L 95 Laboratory Results - last 24 hr 12/30/18 12/30/18 12/30/18 10:40 10:40 10:40 WBC 17.68 H RBC 4.04 L Hgb 12.2 L Hct 37.6 L MCV 93.1 MCH 30.2 MCHC 32.4 L RDW Std Deviation 12.6 Plt Count 196 MPV 10.6 H Immature Gran % (Auto) 0.4 Neut % (Auto) 83.6 H Lymph % (Auto) 8.3 L [place] % (Auto) 7.6 Eos % (Auto) 0.0 Baso % (Auto) 0.1 Immature Gran # (Auto) 0.07 H Neut # (Auto) 14.79 H Lymph # (Auto) 1.46 [place] # (Auto) 1.35 H Eos # (Auto) 0.00 Baso # (Auto) 0.01 Sodium 142 Potassium 4.2 Chloride 106 Carbon Dioxide 19 L Anion Gap 17 BUN 43 H Creatinine 1.8 H Estimated GFR/1.73 m2 36 BUN/Creatinine Ratio 24 Glucose 142 H Calculated Osmolality 296 Calcium 9.7 Total Bilirubin 0.79 AST 27 ALT 12 Alkaline Phosphatase 70 Creatine Kinase 292 H Creatine Kinase Index 3.6 H CK-MB (CK-2) 10.51 H Troponin T 0.743 H* Total Protein 7.8 Albumin 4.3 Globulin 3.5 Albumin/Globulin Ratio 1.2 Urine Source Urine Color Urine Turbidity Urine pH Ur Specific [place] Urine Protein Ur Glucose (Stick) Ur Ketones (Stick) Urine Blood Urine Nitrite Urine Bilirubin Urobilinogen Dipstick Urine Leukocytes Urine WBC (Auto) Urine RBC (Auto) U Epithel Cells (Auto) Urine Bacteria (Auto) 12/30/18 10:53 WBC RBC Hgb Hct MCV MCH MCHC RDW Std Deviation Plt Count MPV Immature Gran % (Auto) Neut % (Auto) Lymph % (Auto) [place] % (Auto) Eos % (Auto) Baso % (Auto) Immature Gran # (Auto) Neut # (Auto) Lymph # (Auto) [place] # (Auto) Eos # (Auto) Baso # (Auto) Sodium Potassium Chloride Carbon Dioxide Anion Gap BUN Creatinine Estimated GFR/1.73 m2 BUN/Creatinine Ratio Glucose Calculated Osmolality Calcium Total Bilirubin AST ALT Alkaline Phosphatase Creatine Kinase Creatine Kinase Index CK-MB (CK-2) Troponin T Total Protein Albumin Globulin Albumin/Globulin Ratio Urine Source CLEAN CATCH Urine Color YELLOW Urine Turbidity CLEAR Urine pH 5.0 Ur Specific [place] 1.014 Urine Protein TRACE A Ur Glucose (Stick) NEGATIVE Ur Ketones (Stick) NEGATIVE Urine Blood NEGATIVE Urine Nitrite NEGATIVE Urine Bilirubin NEGATIVE Urobilinogen Dipstick NORMAL Urine Leukocytes NEGATIVE Urine WBC (Auto) <10 Urine RBC (Auto) <10 U Epithel Cells (Auto) <10 Urine Bacteria (Auto) NEGATIVE Orders Category Date Time Status Nursing- MD Consult Request ROUTINE Care 12/30/18 13:27 Active MD [Physician/Provider Consults] Routine Cons 12/30/18 13:[address] HEAD W/O CONTRAST [CT] Urgent Exams 12/30/18 13:[address] THORAX W/O CONTRAST [CT] Urgent Exams 12/30/18 13:29 Ordered ELBOW COMPLETE LEFT [RAD] Stat Exams 12/30/18 10:27 Completed ELBOW COMPLETE RIGHT [RAD] Stat Exams 12/30/18 10:27 Completed KNEE 3 VIEWS LEFT [RAD] Stat Exams 12/30/18 10:26 Completed KNEE 3 VIEWS RIGHT [RAD] Stat Exams 12/30/18 10:26 Completed THORACIC SPINE [RAD] Stat Exams 12/30/18 10:30 Completed cxr [CHEST-1 VIEW] [RAD] Stat Exams 12/30/18 13:31 Completed BASIC METABOLIC PANEL [CHEM] Routine Lab 12/31/18 06:00 Ordered BLOOD CULTURE [BLDCUL] Stat Lab 12/30/18 13:33 Ordered CBC WITH DIFF [HEME] Stat Lab 12/30/18 10:40 Completed CK PROFILE [SP CHEM] Q8H Lab 12/30/18 16:30 Ordered CK PROFILE [SP CHEM] Q8H Lab 12/31/18 00:30 Ordered CK PROFILE [SP CHEM] Stat Lab 12/30/18 10:40 Completed CMP [COMPREHENSIVE METABOLIC PANEL] [CHEM] Stat Lab 12/30/18 10:40 Completed MAGNESIUM [CHEM] Routine Lab 12/31/18 06:00 Ordered PRO B-NATRIURETIC PEPTIDE Routine Lab 12/30/18 13:45 Ordered TROPONIN T Q8H Lab 12/30/18 16:30 Ordered TROPONIN T Q8H Lab 12/31/18 00:30 Ordered TROPONIN T Stat Lab 12/30/18 10:40 Completed URINALYSIS [URINALYSIS] Stat Lab 12/30/18 10:53 Completed ATORVAstatin [Lipitor] Med 12/30/18 21:00 Ordered 40 mg PO QHS Amlodipine [Norvasc] Med 12/30/18 14:00 Ordered 10 mg PO DAILY Aspirin Med 12/30/18 13:36 Discontinued 325 mg PO STAT STA Aspirin Med 12/31/18 09:00 Active 81 mg PO DAILY CefTRIAXONE [Rocephin] 1 gm Med 12/30/18 13:33 Active 0.9% Sodium Chloride Inj [Ns] 50 ml IV NOW Metoprolol [Lopressor] Med 12/30/18 21:00 Discontinued 25 mg PO BID Metoprolol [Lopressor] Med 12/30/18 21:00 Ordered 50 mg PO BID Ondansetron Odt [Zofran Odt] Med 12/30/18 12:48 Discontinued 4 mg PO NOW ONE Sodium Chloride 0.45% Inj [1/2 Ns] 1,000 ml Med 12/30/18 13:55 Ordered IV 75 mls/hr EKG [EKG] DAILY Ther 12/31/18 06:00 Ordered EKG [EKG] DAILY Ther 01/01/19 06:00 Ordered EKG [EKG] DAILY Ther 01/02/19 06:00 Ordered EKG [EKG] Stat Ther 12/30/18 10:32 Draft Echo Spec/Color Doppler Routine Ther 12/30/18 13:37 Ordered [facility] [address], [address], [place] [id number] Department of Imaging Patient: ARNOLDO SALAS ADM Date: 12/30/18 MR#: [id number] : 1935 ADM Status: REG ER Age/Sex: 83/M Room/Bed: Loc: ED Ordering Physician: Ben Chung MD Family Physician: Doron Rowe MD Reason for Procedure: fall, trauma Signed KNEE 3 VIEWS LEFT - 12/30/2018 INDICATION: fall, trauma TECHNIQUE: Three views COMPARISON: None FINDINGS: There has been total knee arthroplasty. Alignment is anatomic. No hard curry fracture or loosening. There is advanced peripheral vascular disease of the femoral and popliteal arteries. IMPRESSION: No acute injury. Electronically signed by Momo Fisher 12/30/2018 11:49 AM 12/30/18 1149 Interpreting Physician: Momo Fisher MD Dictated Date/Time: 12/30/18 1148 cc: Ben Chung MD; Doron Rowe MD Result Diagrams: 12/30/18 10:40 12/30/18 10:40 - EKG 1 Time of EKG reading by physician:: 10:25 EKG Read and Signed by:: Ben Chung EKG Interpretation (*Must complete 3 of following elements*): Abnormal Rate: 64 Rhythm: ventricular-paced rhythm with frequent AV dual-paced complexes [place]: normal Comments: abnormal ECG - XRAY 1 XRAY Study: Thoracic Spine Impression: See EMR Report (Signed THORACIC SPINE - 12/30/2018 INDICATION: fall, pain TECHNIQUE: Four views COMPARISON: 05/24/2017 FINDINGS: Alignment is anatomic. Vertebral body heights and intervertebral disc spaces are preserved. No visible fracture or subluxation. Stable advanced multilevel degenerative disc disease. IMPRESSION: Degenerative disc disease. No acute injury. Electronically signed by Momo Fisher 12/30/2018 11:51 AM 12/30/18 1151 Interpreting Physician: Momo Fisher MD Dictated Date/Time: 12/30/18 1149 cc: Ben Chung MD; Doron Rowe MD) 2 XRAY: Right XRAY Study: Elbow Impression: See EMR Report ( ELBOW COMPLETE RIGHT - 12/30/2018 INDICATION: fall, trauma TECHNIQUE: Three views COMPARISON: 06/15/2014 FINDINGS: Bones are intact and normally aligned. Joint spaces and soft tissues are clear. IMPRESSION: Negative exam. Electronically signed by Momo Fisher 12/30/2018 11:47 AM 12/30/18 1147 Interpreting Physician: Momo Fisher MD Dictated Date/Time: 12/30/18 1146 cc: Ben Chung MD; Doron Rowe MD) 3 XRAY: Left XRAY Study: Elbow Impression: See EMR Report ( ELBOW COMPLETE LEFT - 12/30/2018 INDICATION: fall, trauma TECHNIQUE: Three views COMPARISON: 08/18/2016 FINDINGS: Bones are intact and normally aligned. Joint spaces and soft tissues are clear. IMPRESSION: Negative exam. Electronically signed by Momo Fisher 12/30/2018 11:48 AM 12/30/18 1148 Interpreting Physician: Momo Fisher MD Dictated Date/Time: 12/30/18 1147 cc: Ben Chung MD; Doron Rowe MD) 4 XRAY: Right XRAY Study: Knee Impression: See EMR Report ( KNEE 3 VIEWS RIGHT - 12/30/2018 INDICATION: fall, trauma TECHNIQUE: Three views COMPARISON: None FINDINGS: There has been total knee arthroplasty with patellar resurfacing. No hardware fracture or loosening. There is advanced peripheral vascular disease of the femoral and popliteal arteries. IMPRESSION: No acute injury. Electronically signed by Momo Fisher 12/30/2018 11:49 AM 12/30/18 1149 Interpreting Physician: Momo Fisher MD Dictated Date/Time: 12/30/18 1149 cc: Ben Chung MD; Doron Rowe MD) - CONSULTS/PCP/HOSPITALIST Notification #1 *Consult/PCP/Hospitalist*: RICA Corbett, for Dr. Person Time Discussed: 13:02 Reason/Comments: Dr. Chung consulted with hCelle about patient. Consult Disposition: Will see in ED #2 Consult: Dr. Rowe Time Discussed: 13:06 Reason/Comments: Dr. Chung consulted with Dr. Rowe about patient. Consult Disposition: other (Dr. Rowe states call back after records management technician sees patient.) #3 Consult: Dr. Rowe Time Discussed: 13:58 Reason/Comments: Dr. Chung consulted with Dr. Rowe about patient Consult Disposition: other (Dr. Chung informed Dr. Rowe about patient.) Departure - Departure Date of Disposition Decision: 12/30/18 Time of Disposition Decision: 13:33 DIAGNOSIS: NSTEMI (non-ST elevated myocardial infarction), Pneumonia Disposition: ADMITTED INPATIENT 09 Certified Medical Emergency: Emergent Condition: Fair Referrals and Follow-Ups: Doron Rowe MD [Primary Care Provider] - - Critical Care Note This patient required my direct & personal management of CC.: No Attestation - Physician/ ALFREDO Attestation The physician spent face to face time with patient:: Yes Advanced Practice Provider documentation review:: Supervising physician onsite and consulted in the evaluation and care of this patient. The physician did have a face to face encounter with the patient. This chart was documented by the indicated scribe, (Yesenia Murphy, Stephan) and accurately reflects the services I performed and decisions made by me, Ben Chung MD, as attested by the provider's signature.
--- NOTE | 2019-01-14 14:32 | GASTROENTEROLOGY PROGRESS NOTE ---
DATE: 01/14/2019 SUBJECTIVE: Patient was awake and alert. Nurses were giving him a bath at the time of my visit. I had spoken with his daughter. There has been no evidence of active bleeding. Hemoglobin and hematocrit have improved some today. OBJECTIVE: Vital signs: Temperature 97.8 degrees, pulse 59, respirations 17, blood pressure 159/67. General: Patient was awake and alert in no acute distress. LABORATORY: Hematology: WBC 9.07, hemoglobin 8.6, hematocrit 27.3, MCV 94.5, platelet 158,000. Chemistry: Sodium 144, potassium 3.9, chloride 112, CO2 of 19, BUN 43, creatinine 2.5, glucose 96, calcium 8.6, phosphorus 4.2, albumin 2.8. ASSESSMENT AND PLAN: 1. Anemia. 2. Other medical problems, including pneumonia renal insufficiency history of atrial fibrillation, congestive heart failure, and coronary artery disease on Plavix and aspirin. Hemoglobin and hematocrit have improved some today. There have been no signs of active bleeding. We will continue PPI. We will continue to follow. Would not recommend endoscopy procedures unless there is active bleeding or his hemoglobin and hematocrit worsen. I have discussed this with the daughter who agrees. We will continue to follow and further plans will be made according to his progress. I have discussed this case with Dr. Hoover. Dictated by LIT Jarquin for Christiano Hoover MD cc: LIT Blankenship MD Stephen W. Harbin, MD
--- NOTE | 2019-01-14 19:32 | NEPHROLOGY PROGRESS NOTE ---
DATE: 01/14/2019 TIME: 709 SUBJECTIVE: Mr. Hall is resting quietly in bed. He has no complaints. OBJECTIVE: His most recent vital signs: Temperature 98 degrees, blood pressure 124/50, heart rate 61, respirations 18. He is on 3 L nasal cannula. Last recorded saturation 97%. He has had 290 in and 450 out. Labs: Sodium is 144, potassium 3.9, chloride 112. His CO2 is 19, BUN is 43. His creatinine is 2.5 with a glucose of 96. Patient has an anion gap of 13, calcium is 8.6. His phosphorus is 4.2, albumin is 2.8. White count 9.07, hemoglobin 8.6, hematocrit is 27.3, platelet count is 150,000. His random vancomycin level was last indicated at 9.2. General: This is an 83- year-old white male resting quietly in bed. He appears chronically ill in no acute distress. Skin: Warm and dry. HEENT: Normocephalic, atraumatic. Conjunctivae are pale, pink. He has DIAZ. Mucous membranes are dry. Neck: Supple. Trachea midline. No evidence of JVD. Cardiovascular: Regular rate and rhythm. S4 is present. Lungs: Clear to auscultation bilaterally. Equal excursion on O2. Abdomen: Soft. Nontender. Positive bowel sounds. Genitourinary: Not inspected. Patient has an adult diaper in place. He has recorded 450 out. Extremities: Have trace edema. No clubbing or cyanosis with chronic venous stasis present. Neurological: He is alert to person and to place. ASSESSMENT AND PLAN: 1. 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 Patient has remained stable. No indications for further intervention. Adequate urine output is documented. 2. Electrolytes and acid-base balance. These are acceptable. 3. Anemia. This is low but stable. 4. Pneumonia followed by primary care. I would like to thank you for allowing us to follow with this patient. Dictated by LIT De La Cruz for Ren Ward MD Face to face encounter, data reviewed, discussed with Shikha Rubio on 01/14/19. I agree with the above assessment and plan of care. cc: LIT De La Cruz MD Stephen W. Harbin, MD MTDD
[2019-01-14] MEDS: GLUCOSAMINE 500 MG/CHONDROITIN 400 MG PO SCH (21:47)
[2019-01-14] MEDS: PROSCAR PO SCH (21:47)
[2019-01-14] MEDS: VANCOMYCIN 1 GM/NS 1 GM/250 ML IVPB IV SCH (21:50)
[2019-01-15] MEDS: DUONEB (A & A) INH SCH ×2 (03:15→07:35)
[2019-01-15] MEDS: MERREM 1 GM in NS 50 ML IV SCH ×2 (05:48→12:43)
[2019-01-15] MEDS: PROTONIX PO SCH ×2 (05:48→06:38)
[2019-01-15] MEDS: HUMULIN R SUBQ SCH ×3 (06:37→16:47)
[2019-01-15 07:21] LABS: ALBUMIN 2.9 g/dL (3.5-5.0); CALCIUM 8.2 mg/dL (8.8-10.2); CREATININE 2.3 mg/dL (0.7-1.2); PHOSPHORUS 3.8 mg/dL (2.7-4.5); POTASSIUM 3.6 mmol/L (3.5-5.1)
[2019-01-15] MEDS: ADVAIR 250/50 DISKUS INH SCH (07:35)
[2019-01-15 08:31] LABS: HEMATOCRIT 27.5 % (42.0-52.0); HEMOGLOBIN 8.5 g/dL (14.0-18.0); MCH 29.3 PG (27-31); MCHC 30.9 g/dL (33-37); MCV 94.8 FL (81-99); MPV 10.4 FL (7.4-10.4); RBC 2.9 XMIL (4.7-6.1); RDW 12.8 % (11.5-14.5); WBC 8.86 X1000 (4.8-10.8)
[2019-01-15] MEDS: MIRALAX PO SCH (09:10)
[2019-01-15] MEDS: CULTURELLE PO SCH (09:11)
[2019-01-15] MEDS: APRESOLINE PO SCH ×2 (09:11→12:44)
[2019-01-15] MEDS: NORVASC PO SCH (09:11)
[2019-01-15] MEDS: SODIUM BICARBONATE PO SCH (09:12)
[2019-01-15] MEDS: ISORDIL PO SCH ×2 (09:12→12:44)
[2019-01-15] MEDS: PLAVIX PO SCH (09:12)
[2019-01-15] MEDS: ICAR-C PO SCH (09:12)
[2019-01-15] MEDS: ASPIRIN PO SCH (09:13)
[2019-01-15] MEDS: CYMBALTA PO SCH (09:13)
[2019-01-15] MEDS: LOPRESSOR PO SCH (09:13)
[2019-01-15] MEDS: FISH OIL CONCENTRATE PO SCH (09:13)
[2019-01-15] MEDS: MYCOSTATIN SUSP PO SCH ×2 (09:16→12:44)
[2019-01-15] MEDS: CASODEX PO SCH (09:16)
[2019-01-15] MEDS: PATIENT'S OWN MED PO SCH (09:17)
--- NOTE | 2019-01-15 09:27 | DISCHARGE SUMMARY ---
ADMISSION DATE: 12/30/2018 DISCHARGE DATE: 01/15/2019 DIAGNOSES: 1. Non-Q-wave myocardial infarction with medical management recommended per Cardiology after this was desired by the family and by patient. 2. Bilateral community-acquired pneumonia, which was resolving and then developed a likely aspiration pneumonia, which is also now resolving well. 3. Frequent falls. 4. Paroxysmal atrial fibrillation with patient not on anticoagulation due to history of gastrointestinal bleeds and frequent falls. 5. Heme-positive stool with gastrointestinal blood loss anemia on top of anemia of chronic disease with hemoglobin stabilized at around 8.5 range. 6. Chronic renal insufficiency stage IV followed by Nephrology, Dr. Ward. Creatinine stabilized at around 2.3. 7. Right knee abrasion and multiple contusions, resolved. 8. Venous stasis dermatitis, left lower extremity, improved. 9. Delirium thought multifactorial and evaluated by Dr. Salas, Neurology. 10. Very mild dementia, not on medication at this point, but with consideration given to Aricept in the future as he improves. 11. Acute on chronic systolic congestive heart failure, now compensated. 12. Moderate aortic stenosis. 13. Mild mitral regurgitation and tricuspid regurgitation. 14. Permanent pacemaker. 15. Coronary artery disease. 16. Hypertension. 17. Hyperlipidemia. 18. History of prior carotid endarterectomy 2009. 19. Obstructive sleep apnea on CPAP at night. 20. Osteoarthritis. 21. Brief thrombocytopenia thought related to prophylactic Lovenox, which was stopped, and the platelets went back into the normal range. 22. Hypernatremia, resolved. 23. Prostate cancer on chronic chemotherapy of Casodex. PROCEDURES: 1. Bilateral knee and elbow x-rays negative on admission. 2. Thoracic spine x-ray on admission 12/30 also showing degenerative disk disease. No acute injury. 3. Chest CT done 12/30 reveals patchy pneumonia, worsened mediastinal adenopathy, bilateral pleural effusions. 4. Head CT done without contrast on admission shows slightly increased size of lateral ventricles compared to previous CT done 06/17/2014, possibly attributable to cerebral atrophy. However, cannot rule out normal-pressure hydrocephalus. 5. Echocardiogram done on admission revealed technically difficult study. Upper normal left ventricular chamber size with mild concentric left ventricular hypertrophy, mild to moderate biatrial enlargement, pacemaker leads in place. Aortic root normal size. Trileaflet aortic valve with moderate aortic stenosis, trace aortic insufficiency, mild MR and TR, moderate pulmonary hypertension. 6. Myocardial perfusion scan done 12/31 revealing large defect in the inferoseptal and apical wall compared to stress test in July 2018. No significant change noted in the inferoseptal and apical wall. Left ventricular ejection fraction thought to be 35 to 40 percent. 7. Repeat head CT done 01/04 revealing no evidence of acute intracranial disease. Some cerebral atrophy. 8. Repeat CT head done 01/07 with no acute disease or change from prior. 9. Modified barium swallow with speech therapy evaluation showing no evidence of aspiration. 10. Renal ultrasound done 01/06 revealing small right renal cyst, otherwise normal renal ultrasound. CONSULTANTS: 1. Cardiology, Dr. Person. 2. Nephrology, Dr. Ward. 3. Neurology, Dr. Salas. 4. Gastroenterology, Dr. Hoover BRIEF SUMMARY OF HOSPITALIZATION: The patient is an 83-year-old white male followed in my medical practice. He has been active and does have severe osteoarthritis, and he ambulates around his home. He became weak and having very frequent falls. He came in and had several x-rays done which showed no fractures, but he had abrasions to his right knee and multiple contusions. He was evaluated and his cardiac enzymes were high, and evaluated by Cardiology and not found to have non- Q-wave WA. The patient and his family desired medical management. Thus, his medicines were optimized during the hospitalization. Especially, he was placed on aspirin and Plavix. He had been on aspirin long-term. The patient had no further difficulties in this regard. No chest pains during the hospitalization thereafter. He did have delirium and chronic kidney disease worsened, and he received a little Lasix early on x1 dose, and then he received some IV fluids after his creatinine jose. The IV fluids caught up with the prerenal situation, and gradually his creatinine declined from the 4 range down to 2.3 where it stabilized. He had delirium, had 3 CT scans and evaluation by Neurology. Dr. Salas felt that this was multifactorial associated with his acute illness and also some mild baseline dementia. He said to consider Aricept placement as an outpatient later on. The patient did have some early what I thought was community-acquired pneumonia bilaterally, and he was placed on antibiotics for that. Around 01/06 to 01/07, he became more acutely ill-appearing, began running some fever and was very confused. His lungs were acutely worse and we obtained test, and felt like he had a development of aspiration pneumonia. Changed his antibiotics to meropenem and vancomycin. He remained on that for just over a week and markedly improved on that antibiotic. Chest x-rays began to improve and he remained on DuoNebs and some oxygen. His mentation and lung situation improved markedly. He did have some heme- positive stools and his hemoglobin declined to a cody of 8.0, where it stabilized and remained around 8.3 or so at discharge. Gastroenterology saw the patient; they did not want to pursue further endoscopy as he has had that in the recent past, and he was maintained on PPI and had no acute findings of GI bleed. He was able to eat fairly well, although appetite waxed and waned. He was given Ensure Enlive to help maximize his intake. By 01/15 he had stabilized. It was felt he could be discharged to rehab facility where he will continue physical therapy that had been instituted throughout the hospitalization. DISCHARGE MEDICATIONS: MiraLAX 17 g in 8 ounces of water every other day, garlic pill 1 p.o. daily, Osteo Bi-Flex 1 p.o. at bedtime, DuoNebs q. 4 hours while awake, Norvasc 10 mg p.o. daily, Lipitor 40 mg p.o. at bedtime, Icar C 1 p.o. b.i.d., Isordil 60 mg p.o. t.i.d., [place]-3 fatty acids 1000 mg p.o. q.a.m., Proscar 5 mg p.o. daily, Casodex 50 mg p.o. daily, Cymbalta 30 mg p.o. daily, metoprolol 50 mg p.o. b.i.d., Advair 250/50 two puffs daily, aspirin 81 mg p.o. daily, Augmentin 875 mg p.o. b.i.d. for 3 days then stop, Culturelle 1 p.o. b.i.d., doxycycline 100 mg p.o. b.i.d. x3 days then stop, Robitussin DM 10 mL p.o. q. 4-6 hours p.r.n. cough, sodium bicarbonate 325 mg p.o. b.i.d., Tylenol 650 mg p.o. q. 6 hours p.r.n. pain or fever, hydralazine 25 mg p.o. t.i.d., Protonix 40 mg p.o. daily. cc: Doron Rowe MD
[2019-01-15 16:38] VITALS: BP 151/59
--- NOTE | 2019-01-15 20:18 | NEPHROLOGY PROGRESS NOTE ---
DATE: 01/15/2019 TIME SEEN: 0645. SUBJECTIVE: Mr. Hall is resting quietly in bed. States that he thinks that he is going to be discharged today to rehab. Denies any discomfort. His most recent vital signs, his last temperature 98.9 degrees, blood pressure 167/70, heart rate 59 respirations are 16. He is currently on room air, last recorded saturation is 96%. He has had 50 mL recorded in, 600 mL out to void. LABORATORY: Sodium is 142, potassium 3.6, chloride is 110, CO2 is 22, BUN 44, creatinine 2.3, glucose 89. His anion gap is 10, his calcium 8.2, phosphorus 3.8, albumin 2.9. White count 8.86, hemoglobin 8.5, hematocrit 27.5, with a platelet count of 162,000. OBJECTIVE: This is an 83-year-old, elderly male. He is resting quietly in bed. He appears in no acute distress. He appears chronically ill. Skin: Warm and dry. HEENT: Normocephalic, atraumatic. Conjunctiva is pale. He has PERRL. Mucous membranes are dry. Neck: Supple. Trachea midline. No JVD. Cardiovascular: Regular rate and rhythm. S4 is present. Lungs: Clear to auscultation bilaterally. Equal excursion on room air. Abdomen: Large, round, soft, nontender. Positive bowel sounds. Genitourinary: Not inspected. Patient has been voiding adequate amount documented. Extremities: No edema. No clubbing or cyanosis. Integumentary: The patient has different stages of healing of ecchymoses to the upper and lower extremities, also noted to the right side of his chest wall. Neurological: Alert to person and to place. ASSESSMENT AND PLAN: 1. Acute kidney injury on chronic kidney disease stage IV. The patient is currently stable with a baseline creatinine in the 2's. No indications for further intervention. 2. Electrolytes, acid-base balance, and anemia. These are all acceptable. 3. Pneumonia. Followed by primary care. I would like to thank you for allowing us to follow with this patient. Dictated by LIT De La Cruz for Ren Ward MD Face to face encounter, data reviewed, discussed with Shikha Rubio on 01/15/19. I agree with the above assessment and plan of care. cc: LIT De La Cruz MD Stephen W. Harbin, MD MTDD
--- NOTE | 2019-01-15 21:15 | PROGRESS NOTE ---
DATE: 01/15/2019 SUBJECTIVE: Patient was seen earlier this morning and doing well overall. There are plans to discharge him to the rehab facility today. OBJECTIVE: Vital Signs: Afebrile. Vital signs stable. CV: Regular rate and rhythm. Lungs: Clear, much improved. Abdomen: Soft, nontender, nondistended. Extremities: No calf tenderness, cords, or edema. Neurologic: Minimal baseline confusion. No major confusion at all. Moves all extremities well. No focal deficits. No facial droop. LABS: White count 8.8, hemoglobin 8.5 and stable, platelets 162,000. Sodium 142, potassium 3.6, chloride 110, CO2 22, BUN 44, creatinine 2.3. Blood sugars low 100s. ASSESSMENT: 1. Non-Q-wave myocardial infarction, stable on medical management. 2. Pneumonia, improved with antibiotics. 3. Frequent falls. 4. Paroxysmal atrial fibrillation. Patient off anticoagulation due to frequent falls and heme- positive stool and history of gastrointestinal bleeds. 5. Heme-positive stool with mild gastrointestinal blood loss on top of anemia of chronic disease, with stable hemoglobin around 8.5. 6. Chronic renal insufficiency, stage IV, followed by Dr. Ward. Creatinine stabilized at 2.3. 7. See remainder of list on the discharge summary. PLAN: 1. Will transfer him to rehab today. 2. Change him off IV antibiotics to oral antibiotics. 3. He will follow up in my office in 3-1/2 weeks when he gets out of rehab. 4. Physical therapy will be seeing the patient there and working with him on strengthening and try to work on his nutrition status. cc: Doron Rowe MD
--- NOTE | 2019-01-15 21:18 | GASTROENTEROLOGY PROGRESS NOTE ---
DATE: 01/15/2019 SUBJECTIVE: Patient was resting. His was at the bedside. He does have orders to be discharged to [facility] Rehabilitation. There has been no evidence of active bleeding. Hemoglobin and hematocrit remain low, but stable. Hemoglobin and hematocrit today 8.5 and 27.5. OBJECTIVE: Vital Signs: Temperature 97.5 degrees, pulse 59, respirations 17, blood pressure 146/61. General: Patient is asleep, in no acute distress. His is at the bedside. LABORATORY: Hematology: WBC 8.86, hemoglobin 8.5, hematocrit 27.5, MCV 94.8, platelet 162,000. Chemistry: Sodium 142, potassium 3.6, chloride 110, CO2 of 22, BUN 44, creatinine 2.3, glucose 89, calcium 8.2, albumin 2.9. ASSESSMENT AND PLAN: 1. Anemia, stable. 2. Other medical problems, including pneumonia, renal insufficiency, history of atrial fibrillation, congestive heart failure, coronary artery disease on Plavix and aspirin. 3. There has been no evidence of active bleeding. Hemoglobin and hematocrit are stable. 4. I believe he has discharge orders to rehab. I recommend he follow up with us as an outpatient after his rehab stay. 5. Continue PPI. I have discussed this case with Dr. Hoover. Dictated by LIT Jarquin for Christiano Hoover MD cc: LIT Blankenship MD Stephen W. Harbin, MD
== END 2019-01-15 18:01 | DRG 280 ==
LOC: SUPCPDRO → ED 09:55 → 3N 15:15
PROVIDERS: ADMIT Family Medicine; ATTEND Family Medicine
CPT/HCPCS: 70450; 71010; 71020; 71045; 71046; 71250; 72072; 73080; 73562; 74230; 76770; 78451; 80048; 80053; 80069; 80202; 81001; 82272; 82550; 82553; 82570; 82607; 82746; 82805; 82948; 83735; 83880; 84156; 84300; 84439; 84443; 84484; 85025; 85027; 86592; 87040; 87205; 92611; 93005; 93010; 93306; 94640; 94760; 94761; 96365; 97116; 97162; 97530; 99285; A9270; A9500; J0696; J1650; J1940; J1956; J2185; J2270; J2405; J2930; J3370; J3480; J7030; J7070; J7120; J7506; J7512; S0138; XXXXX

== ENCOUNTER 2019-01-23 05:42 | Inpatient (IN) ==
--- NOTE | 2019-01-23 05:54 | PROVIDER DOCUMENTATION ---
HPI-General Adult - General Chief Complaint: Shortness of Breath Stated Complaint: difficulty breathing Time Seen by Provider: 01/23/19 05:47 Source: patient, EMS Allergies/Adverse Reactions: Patient Allergies Allergy/AdvReac Type Severity Reaction Status Date / Time No Known Allergies Allergy Verified 05/02/17 07:41 Home Medications: Home Medication List Medication Instructions Recorded Confirmed Last Taken Type Garlic [Odorless Garlic] 1 each PO QAM 06/09/16 12/30/18 05/01/17 09:00 History Glucosamine/D3/Boswellia Nathalie 1 each PO QHS 06/09/16 12/30/18 05/01/17 21:00 History [Osteo Bi-Flex Tablet] ATORVAstatin [Lipitor] 40 mg PO QHS tablet 05/10/17 12/30/18 Unknown Rx Finasteride [Proscar] 5 mg PO QPM tablet 05/10/17 12/30/18 Unknown Rx Iron Carbonyl/Ascorbic Acid 1 each PO BID tablet 05/10/17 12/30/18 Unknown Rx [Icar-C] Isosorbide Dinitrate [Isordil] 60 mg PO TID #90 tab 05/10/17 12/30/18 Unknown Rx [place]-3 Fatty Acids [Fish Oil 1,000 mg PO QAM capsule 05/10/17 12/30/18 Unknown Rx Concentrate] Bicalutamide [Casodex] 50 mg PO DAILY 12/30/18 12/30/18 Unknown History Fluticasone/[place] 250/50 INH 2 puff INH DAILY 12/30/18 12/30/18 Unknown History [Advair 250/50 Diskus] Acetaminophen [Tylenol] 650 mg PO Q6H PRN PRN tab 01/15/19 Unknown Rx Albuterol 2.5MG/Ipratrop 0.5MG 3 ml INH RTQ4H neb 01/15/19 Unknown Rx [Duoneb (A & A)] Amlodipine [Norvasc] 10 mg PO DAILY tab 01/15/19 Unknown Rx Amoxicillin/Potassium Clav 1 ea PO BID #6 tab 01/15/19 Unknown Rx [Augmentin 875-125 Tablet] Aspirin 81 mg PO DAILY chewtab 01/15/19 Unknown Rx Doxycycline 100 mg PO BID #6 tab 01/15/19 Unknown Rx Duloxetine [Cymbalta] 30 mg PO DAILY cap 01/15/19 Unknown Rx Guaifenesin/Dm [Robitussin-Dm] 10 ml PO Q4H PRN PRN bottle 01/15/19 Unknown Rx Hydralazine [Apresoline] 25 mg PO TID tab 01/15/19 Unknown Rx Lactobacillus Rhamnosus GG 1 ea PO BID cap 01/15/19 Unknown Rx [Culturelle] Metoprolol [Lopressor] 50 mg PO BID tab 01/15/19 Unknown Rx Pantoprazole [Protonix] 40 mg PO DAILY@0700 tab 01/15/19 Unknown Rx Polyethylene Glycol 3350 [Miralax] 17 gm PO EVERY OTHER DAY powder, 01/15/19 Unknown Rx packet Sodium Bicarbonate 325 mg PO BID tab 01/15/19 Unknown Rx - History of Present Illness -Gen Adult Nature of Presenting Problems: Pt presents from CT with sob, according to CT pt had desat in the 50s and HR in the 40s, upon arrival by EMS, pt got 2L NC and sat was in the 90s, pt reports some cp, sharp, no radiation, pt denies f/c, maldonado, cough, ap, n/v/d. pt is lying in bed in no acute distress. Location of Pain/Injury: reports: chest Pain Radiation: reports: no radiation Quality of Pain: reports: sharp Severity: reports: moderate Onset/Duration: reports: 1-3 hours ago Timing: reports: still present Context/Activities at Onset: reports: none Modifying Factors: improves with: nothing Associated Symptoms: reports: shortness of breath Similar Symptoms Previously?: No Recently seen or treated by another doctor?: No Review of Systems - Adult - REVIEW OF SYSTEMS - ADULT Constitutional: reports: no symptoms reported Eyes: reports: no symptoms reported Ears, Nose, Mouth & Throat: reports: no symptoms reported Cardiovascular: reports: see HPI Respiratory: reports: see HPI Gastrointestinal: reports: no symptoms reported Genitourinary: reports: no symptoms reported Musculoskeletal: reports: no symptoms reported Integumentary: reports: no symptoms reported Neurological: reports: no symptoms reported Psychiatric: reports: no symptoms reported Endocrine: reports: no symptoms reported Hematologic/Lymphatic: reports: no symptoms reported Allergic/Immunologic: reports: no symptoms reported All Other Systems: Reviewed and Negative Past History - Adult - PAST MEDICAL HISTORY-ADULT Review of Records: reports: Old Records Reviewed, Nursing Assessment Review, Medications Reviewed, Social history reviewed & non-contributory. Major Childhood Illnesses: reports: denies history Cardiovascular: reports: CAD, CHF, HTN, hyperlipidemia, pacemaker Respiratory: reports: COPD, sleep apnea Gastrointestinal: reports: denies history Obstetrical/Gynecological: reports: denies history Genitourinary: reports: denies history Musculoskeletal: reports: arthritis Neurological: reports: denies history Endocrine/Immune: reports: denies history Other Conditions: reports: denies history - PRIOR SURGERIES/PROCEDURES Surgical/Procedure History: reports: orthopedic (extremity) (total knee repair) - IMMUNIZATION STATUS Childhood Immunizations: See Nurse Assessment Flu Vaccine: See Nurse Assessment - FAMILY HISTORY Family History: reviewed, not pertinent Physical Exam-General - PHYSICAL EXAM-ADULT Initial Vital Signs Reviewed: Yes - CONSTITUTIONAL General Appearance: appears well, no apparent distress - EYES Eyes: PERRL/EOMI - HEAD, EARS, NOSE, MOUTH & THROAT HENMT: normal ENT inspection - NECK Neck: normal inspection - RESPIRATORY Respiratory: lungs clear, no respiratory distress - CARDIOVASCULAR Cardiovascular: regular rate, rhythm - GASTROINTESTINAL (ABDOMEN) Abdominal Exam: non tender, soft - LYMPHATIC Lymphatic: no adenopathy - MUSCULOSKELETAL Back Exam: normal inspection Extremity: normal range of motion - SKIN Integumentary: normal color - NEUROLOGIC Neurologic: grossly normal - PSYCHIATRIC Psych/Mental Status: normal mood/affect Progress - PLAN OF CARE/RESULTS Progress/Plan/Lab Results: Orders Category Date Time Status Nursing- Obtain EKG ONCE Care 01/23/19 05:49 Ordered CHEST-1 VIEW [RAD] Stat Exams 01/23/19 05:49 Ordered ABG [RESP] Stat Lab 01/23/19 05:49 Ordered CBC WITH ELECTRONIC DIFF [HEME] Stat Lab 01/23/19 05:49 Uncollected COMPREHENSIVE METABOLIC PANEL [CHEM] Stat Lab 01/23/19 05:49 Uncollected LACTATE, PLASMA [CHEM] Stat Lab 01/23/19 05:49 Uncollected PRO B-NATRIURETIC PEPTIDE Stat Lab 01/23/19 05:49 Uncollected TROPONIN T Stat Lab 01/23/19 05:49 Uncollected EKG [EKG] Stat Ther 01/23/19 05:49 Ordered Result Diagrams: 01/23/19 06:09 01/23/19 06:09 - REASSESSMENT Reassessment #1 Time Reassessed: 08:35 Status: unchanged (Patient seen and examined by me. Case discussed with Dr. Bone at shift change. CXR shows pulmonary edema with worsening of pleural effusion, and labs show significant increase in baseline pro-BNP and steady decrease in H/H. Will need admission for diuresis and possible transfusion.) - XRAY 1 XRAY Study: Chest Impression: Abnormal, See EMR Report (EXAM: CHEST-1 VIEW 01/23/2019 HISTORY: sob TECHNIQUE: AP portable at 0602 COMMENT: There is cardiomegaly. There is increased pulmonary vascularity. There is alveolar and interstitial pulmonary edema. There is a right pleural effusion. These findings are much worse than on 01/13/2019. IMPRESSION: Worsened pulmonary edema and right pleural effusion. Electronically signed by Jason Mcdaniel 01/23/2019 7:13 AM 01/23/19 0713 Interpreting Physician: Jason Mcdaniel MD Dictated Date/Time: 01/23/19 0712 cc: King Bone MD; Doron Rowe MD) - CONSULTS/PCP/HOSPITALIST Notification #1 *Consult/PCP/Hospitalist*: Soledad paged at 0830 Time Discussed: 08:47 Consult Disposition: Admit (please wirte holding orders) Departure - Departure Date of Disposition Decision: 01/23/19 Time of Disposition Decision: 08:38 DIAGNOSIS: Dyspnea and respiratory abnormalities, Pulmonary edema with congestive heart failure, NYHA class 4, Hypoxemia requiring supplemental oxygen Anemia Qualifiers: Anemia type: iron deficiency Iron deficiency anemia type: chronic blood loss Qualified Code(s): D50.0 - Iron deficiency anemia secondary to blood loss (chronic) Disposition: ADMITTED INPATIENT 09 Certified Medical Emergency: Emergent Condition: Stable Referrals and Follow-Ups: Doron Rowe MD [Primary Care Provider] - - Critical Care Note This patient required my direct & personal management of CC.: No Attestation - Physician/ ALFERDO Attestation Patient care was provided by Advanced Practice Provider:: No The physician spent face to face time with patient:: Yes Advanced Practice Provider documentation review:: Supervising physician onsite and consulted in the evaluation and care of this patient. The physician did have a face to face encounter with the patient.
[2019-01-23 05:56] LABS: ALLEN TEST YES; BE -4.1 mmoll (-3.0-3.0); BLOOD TYPE ARTERIAL; HCO3-(ACT) 21.7 mmoll (20.0-26.0); METHB 1.1 % (0.0-1.5); O2(CT) 10.7 mL/dL (15.0-23.0); O2HB 92.3 % (95.0-99.0); PCO2(98.6) 36 mmHg (35-45); PO2(98.6) 66 mmHg (60-100); SAMPLE BLOOD; SAO2 95.1 % (95.0-100.0); THB 8.2 g/dL (11.5-17.4); pH(98.6) 7.37 (7.35-7.45)
[2019-01-23 05:57] LABS: MODALITY CANNULA
[2019-01-23 06:39] LABS: BASO# 0.01 X1000 (0.0-0.2); BASO% 0.2 % (0.0-0.8); EOS# 0.07 X1000 (0.0-0.7); EOS% 1.2 % (0.0-10.0); HEMATOCRIT 25.5 % (42.0-52.0); HEMOGLOBIN 7.9 g/dL (14.0-18.0); LYMPH# 0.67 X1000 (1.2-3.4); LYMPH% 11.4 % (20.5-51.1); MCH 29.4 PG (27-31); MCV 94.8 FL (81-99); MONO% 8.5 % (1.7-9.3); MPV 9.9 FL (7.4-10.4); NEUT# 4.63 X1000 (1.4-6.5); NEUT% 78.7 % (42.2-75.2); PLT 272 X1000 (130-400); RBC 2.69 XMIL (4.7-6.1); RDW 12.7 % (11.5-14.5); WBC 5.88 X1000 (4.8-10.8)
--- NOTE | 2019-01-23 06:43 | EKG Report ---
Test Performed on : 01/23/2019 05:45:23 AM Test Reason : SOB Blood Pressure : / mmHG Vent. Rate : 060 BPM Atrial Rate : 037 BPM P-R Int : 000 ms QRS Dur : 192 ms QT Int : 562 ms P-R-T Axes : 000 -74 123 degrees QTc Int : 562 ms Undetermined rhythm Left axis deviation Nonspecific intraventricular block Possible Lateral infarct , age undetermined Inferior infarct , age undetermined Abnormal ECG When compared with ECG of 04-JAN-2019 10:57, Current undetermined rhythm precludes rhythm comparison, needs review Unconfirmed Result
[2019-01-23 07:00] LABS: ALB/GLOB RATIO 1.3; ALBUMIN 3.4 g/dL (3.5-5.0); CALCIUM 8.6 mg/dL (8.8-10.2); CREATININE 2.2 mg/dL (0.7-1.2); POTASSIUM 3.9 mmol/L (3.5-5.1); TOTAL BILIRUBIN 0.53 mg/dL (0.20-1.00); TOTAL PROTEIN 6.1 g/dL (6.3-8.3)
--- NOTE | 2019-01-23 07:14 | Diag Imaging Result Doc PS360 ---
EXAM: CHEST-1 VIEW 01/23/2019 HISTORY: sob TECHNIQUE: AP portable at 0602 COMMENT: There is cardiomegaly. There is increased pulmonary vascularity. There is alveolar and interstitial pulmonary edema. There is a right pleural effusion. These findings are much worse than on 01/13/2019. IMPRESSION: Worsened pulmonary edema and right pleural effusion. Electronically signed by Jason Mcdaniel 01/23/2019 7:13 AM
[2019-01-23] MEDS ORDERED: LASIX IV ONE (08:31)
[2019-01-23] MEDS ORDERED: PROTONIX 80 MG in NS 80 ML IV ONE (08:37)
[2019-01-23] MEDS ORDERED: ZOFRAN PO PRN (08:48)
[2019-01-23] MEDS ORDERED: TYLENOL PO PRN (08:48)
[2019-01-23 09:53] LABS: INR 1.06; PROTIME 14.6 Seconds (11.0-16.0)
[2019-01-23 09:54] LABS: PTT 30.4 Seconds (22.3-41.8)
[2019-01-23 10:48] LABS: URINE SOURCE CLEAN CATCH
[2019-01-23 10:51] LABS: BILIRUBIN URINE NEGATIVE (NEGATIVE); BLOOD URINE NEGATIVE (NEGATIVE); COLOR YELLOW; GLUCOSE URINE NEGATIVE (NEGATIVE); KETONE URINE NEGATIVE (NEGATIVE); LEUKOCYTES URINE NEGATIVE (NEGATIVE); NITRITE URINE NEGATIVE (NEGATIVE); PROTEIN URINE TRACE mg/dL (NEGATIVE); TURBIDITY URINE CLEAR (CLEAR); UR EPITHELIAL CELLS <10 /HPF (<10); URINE BACTERIA NEGATIVE /HPF; URINE RBC <10 /HPF (<10); URINE WBC <10 /HPF (<10); UROBILINOGEN URINE NORMAL (NORMAL)
[2019-01-23] MEDS: DUONEB (A & A) INH SCH ×4 (11:27→23:04)
[2019-01-23] MEDS ORDERED: ROBITUSSIN-DM PO PRN (13:02)
[2019-01-23] MEDS ORDERED: CATAPRES PO PRN (13:27)
--- NOTE | 2019-01-23 14:49 | HISTORY AND PHYSICAL ---
CHIEF COMPLAINT: Shortness of breath. HISTORY OF PRESENT ILLNESS: The patient is an 83-year-old white male followed in my medical practice, who had been sent to rehab after a 2 to 3 week stay in the hospital a few days ago as he suffered a non-Q-wave TX at that time, and then had some pneumonia develop. He improved with that. He has been off antibiotics now at the rehab by report. Patient also suffers from mild dementia so he is a poor historian. No family members are currently in attendance. Apparently, he had some shortness of breath at the rehab facility, and was sent here for evaluation. Heart rate got down into the 40s. His O2 saturation on room air got down into the 50s by report. He got 2 L in the emergency room and sats were in the 90s. He appears now at his baseline. He does have some mild confusion. He had told the ER physician, possibly had some chest pain, but he denies any chest pains that he can recall. Again, he does have some dementia. MEDICATIONS: Prior to admission: 1. Tylenol p.r.n. 2. DuoNeb's q.4 hour. 3. Garlic 1 p.o. every morning. 4. Osteo Bi-Flex 1 p.o. at bedtime. 5. Protonix 40 mg p.o. daily. 6. Norvasc 10 mg p.o. daily. 7. Aspirin 81 mg daily. 8. Lipitor 40 mg nightly. 9. Casodex 50 mg p.o. daily. 10. Cymbalta 30 mg p.o. daily. 11. Proscar 5 mg p.o. daily. 12. Advair 250 1 puff b.i.d. 13. Robitussin DM p.r.n. cough. 14. Hydralazine 25 mg p.o. t.i.d. 15. Icar C 1 p.o. b.i.d. 16. Isordil 60 mg p.o. t.i.d. 17. Culturelle 1 p.o. b.i.d. 18. Lopressor 50 mg p.o. b.i.d. 19. Fish Oil 1000 mg p.o. every morning. 20. MiraLAX 17 g in 8 ounces of water every other day. 21. Sodium 325 mg p.o. b.i.d. ALLERGIES: NKDA. PAST MEDICAL HISTORY: 1. Non-Q-wave TX 12/30/[address] Person during the last hospitalization. 2. History of recent bilateral pneumonia, initially thought to be bilateral community-acquired pneumonia that seemed to be resolving. He then developed aspiration pneumonia after that which has appeared to resolve as well, and he is now off antibiotics. 3. Frequent falls. 4. Paroxysmal atrial fibrillation with the patient having been put back on aspirin only per Cardiology. He is not on further anticoagulation due to history of GI bleed and frequent falls. 5. Recently heme-positive stool with the prior hospitalization and GI blood loss anemia, which has stabilized at around 8.3. Hemoglobin prior to his discharge from the hospital and is now 7.9. That was evaluated by Gastroenterology during last hospitalization Dr. Hoover. 6. Chronic renal insufficiency stage IV evaluated and followed by Dr. Ward during last hospitalization with baseline creatinine at 2.3. 7. Venous stasis dermatitis left lower extremity. 8. History of delirium evaluated by Dr. Salas during last hospitalization, improved now. 9. Mild dementia, longstanding. 10. Chronic systolic CHF with EF around 35 to 40 percent by recent echocardiogram last visit 2 to 3 weeks ago. 11. Mild mitral regurgitation and tricuspid regurgitation. 12. Moderate aortic stenosis. 13. Permanent pacemaker. 14. Coronary artery disease with history of non-Q-wave TX as above with medical management recommended by the clamshell operator during the stay in the last 2 to 3 weeks. 15. Hypertension. 16. Hyperlipidemia. 17. Prior history of carotid endarterectomy in 2009. 18. CLEMENCIA on CPAP at night. 19. Osteoarthritis severe. 20. History of hypernatremia during last hospitalization, resolved. 21. Prostate cancer on chronic chemotherapy of Casodex. PAST SURGICAL HISTORY: 1. Left knee arthroscopy. 2. Left TKR in 2005. 3. Right TKR. 4. Left carotid endarterectomy 2009. 5. 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 6. TURP in May of 2017. IMMUNIZATIONS: 1. Pneumovax 23 given March in 2003 and March of 2009. 2. Prevnar 13 given 05/05/2015. 3. TD given August of 2016. 4. Influenza last given April of 2018. FAMILY HISTORY: Hypertension in mother and brother. No diabetes or MIs in the family. Sister with gallbladder cancer. Mother with skin cancer. Stroke in his grandfather at age 70. SOCIAL HISTORY: The patient has been living in [place] with his recent transfer to rehab. He is x2. Quit smoking in 1991. He has a 55 pack year history of smoking. He has 3 children and 4 stepchildren. 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 Occasional wine intake. REVIEW OF SYSTEMS: GI evaluation during last hospitalization was noted with no endoscopies recommended by Dr. Hoover and his group. PHYSICAL EXAMINATION: VITAL SIGNS: See chart. GENERAL: Mildly obese white male in no acute distress. Oxygen in place per nasal cannula. SKIN: There is venous stasis dermatitis with some darkening of the skin left lower extremity chronic. No active skin breakdown. HEENT: PERRL. EOMI. Sclerae clear. TMs clear. OP no redness. Tongue in the midline. NECK: No LA, TMG, or bruits. Mild JVD. CARDIOVASCULAR: Regular rhythm and rate with 2 to 3/6 murmur heard best over [*] LUNGS: Crackles bilaterally with some decreased breath sounds at the right lung base with rare wheezes. ABDOMEN: Soft. Active bowel sounds. NT. ND. No mass. No HSM. GENITOURINARY/RECTAL: Deferred. EXTREMITIES: No calf tenderness, cords or edema. NEUROLOGIC: Cranial nerves 2-12 are intact. Mild baseline dementia is noted and appears at his baseline. LABORATORY DATA: White count 5.88, hemoglobin 7.9, hematocrit 25.5, and platelets 272,000. PT 14.6, INR 1.06, and PTT 30.4. ABG on 36% FiO2 shows pH 7.37, pCO2 36, PO2 66, HC03 21.7, and O2 saturation 95.1. Sodium 146, potassium 3.9, chloride 112, CO2 20, BUN 24, creatinine 2.2, glucose 126, calcium 8.6, total bilirubin 0.53, AST 20, ALT 17, alkaline phosphatase 71. Troponin 0.044. ProBNP 12568. Total protein 6.1, albumin 3.4, plasma lactate 0.6, magnesium 2.2. Chest x-ray worsened pulmonary edema and right pleural effusion compared to the chest x-ray done 01/13/2019. EKG shows atrial fibrillation with controlled ventricular rate, paced rhythm at 60. ASSESSMENT: 1. Acute on chronic systolic and diastolic CHF with exacerbation. 2. CAD with history of non-Q-wave TX 3 weeks ago. 3. Paroxysmal atrial fibrillation on chronic low-dose aspirin therapy, not a candidate for more aggressive anticoagulants due to history of gastrointestinal bleeds and frequent falls. 4. Anemia with a recent history of heme-positive stool evaluated by Dr. Hoover during last hospitalization with no endoscopies recommended. 5. Frequent falls. 6. Mild dementia. 7. Chronic kidney disease stage 4. 8. Osteoarthritis severe. 9. Chronic venous stasis dermatitis left lower extremity. 10. Moderate aortic stenosis. 11. Mild mitral regurgitation and tricuspid regurgitation. 12. Permanent pacemaker. 13. Hypertension. 14. Hyperlipidemia. 15. Cerebrovascular disease with history of carotid endarterectomy on the left in 2009. 16. CLEMENCIA on CPAP at night. 17. History of prostate cancer on Casodex. PLAN: We will admit the patient. He has received 1 dose of Lasix 80 mg IV by the ER physician, and he had received a little Lasix during last hospitalization, but became very prerenal with that 1 dose. I am not going to re-dose at this point. We will monitor his electrolytes closely, and his kidney function will monitor I Os given nebulizer treatments of DuoNeb's. Place him on IV PPI. Check Hemoccult testing. If his hemoglobin drops, we will transfuse him tomorrow. Continue his other home medications at this time. We will try to continue his aspirin. He appears not to have any acute GI bleeding going on at this time as was the case during last hospitalization. Keeping saline locked, and try to aggressively manage his CHF. Notably, he is on hydralazine, isosorbide, Lopressor, and Norvasc. Continue to monitor his blood pressure. Give him clonidine as needed for uncontrolled blood pressure. cc: Doron Rowe MD
[2019-01-23] MEDS: APRESOLINE PO SCH (16:52)
[2019-01-23] MEDS: ISORDIL PO SCH (16:53)
[2019-01-23] MEDS: ADVAIR 250/50 DISKUS INH SCH (19:51)
[2019-01-23] MEDS: LOPRESSOR PO SCH (22:01)
[2019-01-23] MEDS: LIPITOR PO SCH (22:01)
[2019-01-23] MEDS: ICAR-C PO SCH (22:01)
[2019-01-23] MEDS: CULTURELLE PO SCH (22:01)
[2019-01-23] MEDS: SODIUM BICARBONATE PO SCH (22:02)
[2019-01-23] MEDS: PROSCAR PO SCH (22:02)
[2019-01-24] MEDS: DUONEB (A & A) INH SCH ×6 (03:43→23:21)
[2019-01-24 06:05] LABS: ALLEN TEST YES; BE 0.4 mmoll (-3.0-3.0); BLOOD TYPE ARTERIAL; HCO3-(ACT) 25.2 mmoll (20.0-26.0); METHB 1.1 % (0.0-1.5); O2(CT) 10.7 mL/dL (15.0-23.0); O2HB 92.3 % (95.0-99.0); PCO2(98.6) 36 mmHg (35-45); PO2(98.6) 63 mmHg (60-100); SAMPLE BLOOD; THB 8.2 g/dL (11.5-17.4); pH(98.6) 7.44 (7.35-7.45)
[2019-01-24 06:06] LABS: MODALITY CANNULA
[2019-01-24 06:28] LABS: BASO# 0.01 X1000 (0.0-0.2); BASO% 0.2 % (0.0-0.8); EOS# 0.13 X1000 (0.0-0.7); EOS% 2.8 % (0.0-10.0); HEMATOCRIT 26.5 % (42.0-52.0); HEMOGLOBIN 8.1 g/dL (14.0-18.0); LYMPH# 0.76 X1000 (1.2-3.4); LYMPH% 16.3 % (20.5-51.1); MCHC 30.6 g/dL (33-37); MONO# 0.51 X1000 (0.11-0.59); MONO% 10.9 % (1.7-9.3); MPV 9.9 FL (7.4-10.4); NEUT# 3.26 X1000 (1.4-6.5); NEUT% 69.8 % (42.2-75.2); PLT 283 X1000 (130-400); RBC 2.79 XMIL (4.7-6.1); RDW 12.8 % (11.5-14.5); WBC 4.67 X1000 (4.8-10.8)
[2019-01-24 06:54] LABS: CALCIUM 8.7 mg/dL (8.8-10.2); CREATININE 2.4 mg/dL (0.7-1.2); POTASSIUM 3.4 mmol/L (3.5-5.1)
--- NOTE | 2019-01-24 07:29 | Diag Imaging Result Doc PS360 ---
EXAM: CHEST-2 VIEWS INDICATION: hypoxia TECHNIQUE: 2 views COMPARISON: 01/23/2019 FINDINGS: Pulmonary venous congestion and interstitial edema has improved somewhat during the interval, especially on the right and in the left upper lung zone. No new consolidation is identified. Cardiac silhouette is stable. IMPRESSION: Interval improvement. Electronically signed by Lobo Lopez 01/24/2019 7:26 AM
[2019-01-24] MEDS: ADVAIR 250/50 DISKUS INH SCH ×2 (07:47→20:07)
[2019-01-24] MEDS ORDERED: MILK OF MAGNESIA PO PRN (08:28)
[2019-01-24] MEDS ORDERED: ASPIRIN PO SCH (09:00)
[2019-01-24] MEDS ORDERED: CALMOSEPTINE OINTMENT TOP ONE (10:34)
[2019-01-24] MEDS: FISH OIL CONCENTRATE PO SCH (10:35)
[2019-01-24] MEDS: CASODEX PO SCH (10:35)
[2019-01-24] MEDS: NORVASC PO SCH (10:35)
[2019-01-24] MEDS: ICAR-C PO SCH ×2 (10:35→20:51)
[2019-01-24] MEDS: CULTURELLE PO SCH ×2 (10:35→20:52)
[2019-01-24] MEDS: ASPIRIN PO SCH (10:36)
[2019-01-24] MEDS: SODIUM BICARBONATE PO SCH ×2 (10:36→20:50)
[2019-01-24] MEDS: APRESOLINE PO SCH ×3 (10:37→19:07)
[2019-01-24] MEDS: LOPRESSOR PO SCH ×2 (10:37→20:52)
[2019-01-24] MEDS: CYMBALTA PO SCH (10:37)
[2019-01-24] MEDS: ISORDIL PO SCH ×3 (10:37→19:07)
[2019-01-24] MEDS: KLOR-CON PO SCH (10:52)
[2019-01-24] MEDS: LASIX PO SCH (10:52)
--- NOTE | 2019-01-24 14:14 | PROGRESS NOTE ---
DATE: 01/24/2019 SUBJECTIVE: Patient is alert and answers questions appropriately. He says he is feeling better and breathing better. OBJECTIVE: Afebrile. Pulse 65, respirations 18, blood pressure 180/69 and O2 saturation on 2 L 96%.CV: RRR. Paced rhythm. Lungs: Mildly diminished breath sounds in posterior lung jay bilaterally. Good air movement. No work of breathing and is laying nearly flat to breathe. No major JVD. Abdomen: Soft, nontender, and nondistended. Extremities: No calf tenderness, cords or edema. Neurologic: Cranial nerves are intact. No focal deficits. LABORATORY: White count 4.6, hemoglobin 8.1 and stable, platelets 283,000, neutrophils 69, and lymphocytes 16. ABG on 2 L/minute per nasal cannula shows pH 7.44, pCO2 36, PO2 63, HC03 25, and O2 saturation 95. Sodium 146, potassium 3.4, chloride 109, CO2 23, BUN 24, creatinine 2.4, and calcium 8.7. [place] [address] [place] [address]. Plasma lactate on admission. Plasma lactate on admission 0.6. Urinalysis negative. Chest x-ray this morning shows interval improvement of pulmonary vascular congestion and interstitial edema, but not resolved. No consolidation. Blood cultures x2 are negative after 24 hours. ASSESSMENT: 1. Acute on chronic systolic and diastolic congestive heart failure. 2. Coronary artery disease with history of non-Q-wave HI 3 weeks ago. 3. Paroxysmal atrial fibrillation on chronic low-dose aspirin therapy, not a candidate for more aggressive anticoagulant due to history of gastrointestinal bleeds and frequent falls. 4. Anemia with history of heme-positive stool. Evaluated by Dr. Hoover when he was in the hospital 3 weeks ago with no recommendations for endoscopies at that time. 5. Frequent falls. 6. Mild dementia. 7. Chronic kidney disease stage 4. 8. Severe osteoarthritis, diffuse. 9. Chronic venous stasis dermatitis left lower extremity. 10. Moderate aortic stenosis. 11. Mild mitral regurgitation and tricuspid regurgitation. 12. Permanent pacemaker. 13. Hypertension. 14. Hyperlipidemia. 15. Cerebrovascular disease with history of prior carotid endarterectomy on the left in 2009. 16. CLEMENCIA on CPAP at night. 17. History of prostate cancer on Casodex. PLAN: We will start the patient on low-dose oral Lasix and potassium repletion. He had received an 80 mg dose IV in the emergency room yesterday. We noted on the last hospitalization he became very prerenal after small dosages of Lasix so we will go slow on this. Continue his DuoNeb's. Continue strict I Os. Hemoccult testing has been ordered when he had a bowel movement. Continue IV PPI. Continue other home medications to include Lipitor, Norvasc, Casodex, clonidine, Cymbalta, Proscar, Advair, hydralazine, Icar C, Imdur, Culturelle, fish oil, and MiraLAX. Continue to monitor his electrolytes including his potassium, magnesium and renal function closely along with his hemoglobin. He has been type and screened. His hemoglobin is stabilized around 8.1. Physical Therapy is working with the patient for strengthening, and hopefully will be able to get him back to rehab early next week if things continue on present course. cc: Doron Rowe MD
[2019-01-24] MEDS: LIPITOR PO SCH (20:52)
[2019-01-24] MEDS: PROSCAR PO SCH (20:52)
[2019-01-24] MEDS ORDERED: ELIQUIS PO SCH (21:00)
[2019-01-25] MEDS: DUONEB (A & A) INH SCH ×6 (03:50→23:27)
[2019-01-25 07:01] LABS: BASO# 0.01 X1000 (0.0-0.2); BASO% 0.2 % (0.0-0.8); EOS# 0.27 X1000 (0.0-0.7); EOS% 5.5 % (0.0-10.0); HEMATOCRIT 25.3 % (42.0-52.0); HEMOGLOBIN 7.7 g/dL (14.0-18.0); LYMPH# 1.08 X1000 (1.2-3.4); LYMPH% 22.2 % (20.5-51.1); MCH 28.6 PG (27-31); MCHC 30.4 g/dL (33-37); MCV 94.1 FL (81-99); MONO% 12.3 % (1.7-9.3); MPV 9.8 FL (7.4-10.4); NEUT# 2.91 X1000 (1.4-6.5); NEUT% 59.8 % (42.2-75.2); PLT 293 X1000 (130-400); RBC 2.69 XMIL (4.7-6.1); RDW 12.5 % (11.5-14.5); WBC 4.87 X1000 (4.8-10.8)
[2019-01-25 07:18] LABS: CALCIUM 8.7 mg/dL (8.8-10.2); CREATININE 2.4 mg/dL (0.7-1.2); MAGNESIUM 1.9 mg/dL (1.5-2.7); POTASSIUM 3.6 mmol/L (3.5-5.1)
--- NOTE | 2019-01-25 08:24 | Diag Imaging Result Doc PS360 ---
CHEST-2 VIEWS - 01/25/2019 INDICATION: hypoxia COMPARISON: 01/24/2019 FINDINGS: Stable pacemaker. Stable cardiomegaly and pulmonary vascular congestion. Stable hazy infiltrates in the lung bases bilaterally. No new infiltrates. No significant pleural effusion. IMPRESSION: No change from prior. Electronically signed by Momo Fisher 01/25/2019 8:22 AM
[2019-01-25] MEDS: ADVAIR 250/50 DISKUS INH SCH ×2 (08:35→19:57)
[2019-01-25] MEDS: MIRALAX PO SCH (08:37)
[2019-01-25] MEDS: LOPRESSOR PO SCH ×2 (08:38→21:38)
[2019-01-25] MEDS: ICAR-C PO SCH ×2 (08:38→21:38)
[2019-01-25] MEDS: ASPIRIN PO SCH (08:38)
[2019-01-25] MEDS: KLOR-CON PO SCH (08:38)
[2019-01-25] MEDS: FISH OIL CONCENTRATE PO SCH (08:39)
[2019-01-25] MEDS: ISORDIL PO SCH ×3 (08:39→18:11)
[2019-01-25] MEDS: SODIUM BICARBONATE PO SCH ×2 (08:39→21:39)
[2019-01-25] MEDS: APRESOLINE PO SCH ×3 (08:39→18:11)
[2019-01-25] MEDS: CULTURELLE PO SCH ×2 (08:39→21:38)
[2019-01-25] MEDS: NORVASC PO SCH (08:40)
[2019-01-25] MEDS: CYMBALTA PO SCH (08:40)
[2019-01-25] MEDS: LASIX PO SCH (08:40)
[2019-01-25] MEDS: CASODEX PO SCH (08:44)
[2019-01-25] MEDS ORDERED: KLOR-CON PO ONE (11:09)
[2019-01-25] MEDS ORDERED: LASIX IV SCH (11:15)
[2019-01-25] MEDS ORDERED: NS 500 ML IV SCH (12:00)
--- NOTE | 2019-01-25 19:38 | PROGRESS NOTE ---
DATE: 01/25/2019 SUBJECTIVE: The patient had a little rumbling in his upper abdomen. He has had not had a bowel movement in 2-3 days, but took some Milk of Magnesia and MiraLAX this morning. OBJECTIVE: Afebrile, pulse 63, respirations 24, blood pressure 160/70, O2 saturation on room air 94%. Weight 220; 216 on admission on 01/23. CV: RRR. Lungs: Occasional crackles and wheezes. Overall good air movement. Intake and output negative 1 L the day before yesterday, but positive 720 mL yesterday. Extremities: No edema. Abdomen protuberant, soft, NT, ND. No mass. No HSM. Neurologic: Cranial nerves are intact. He moves all extremities well. He is alert and oriented x3. No confusion identified. DIAGNOSTIC DATA: Chest x-ray today still shows stable cardiomegaly and stable pulmonary vascular congestion with hazy infiltrates in the lung bases bilaterally. No pleural effusions. No new infiltrates. ASSESSMENT: 1. Itmnp-hy-thidseb systolic and diastolic congestive heart failure. 2. Coronary artery disease with history of non-Q-wave myocardial infarction about 3 weeks ago. 3. Paroxysmal atrial fibrillation, on chronic low-dose aspirin therapy. 4. Anemia with history of heme-positive stool on last admission 3 weeks ago, with Gastroenterology evaluation per Dr. Hoover and him not recommending any endoscopies at that time. 5. Frequent falls. 6. Mild dementia. 7. Chronic kidney disease stage 4. 8. Severe osteoarthritis, diffuse. 9. Chronic venous insufficiency with stasis dermatitis, left lower extremity. 10. Moderate aortic stenosis. 11. Mild mitral regurgitation and tricuspid regurgitation. 12. Permanent pacemaker. 13. Hypertension. 14. Hyperlipidemia. 15. History of cerebrovascular disease with prior left carotid endarterectomy in 2009. 16. Obstructive sleep apnea, on continuous positive airway pressure at night. 17. History of prostate cancer. The patient remains on Casodex. PLAN: As he has dropped down to 7.7 on his hemoglobin, we are going to transfuse him 1 unit of PRBCs, in light of his heart disease and history of recent NV a few weeks ago. We will give him additional Lasix of 40 mg thereafter and replenish potassium. Continue daily oral Lasix at 40 mg daily with potassium supplementation. He has received the laxatives today. Continue his other medications of Lipitor, Norvasc, Casodex, clonidine, Cymbalta, Proscar, Advair, hydralazine, Icar- C, Imdur, Culturelle, fish oil, and DuoNeb. We will recheck his CBC and BMP in the morning. Continue physical therapy. cc: Doron Rowe MD
[2019-01-25] MEDS: PROSCAR PO SCH (21:39)
[2019-01-25] MEDS: LIPITOR PO SCH (21:39)
[2019-01-26] MEDS: DUONEB (A & A) INH SCH ×6 (04:01→23:29)
[2019-01-26 06:38] LABS: BASO# 0.01 X1000 (0.0-0.2); BASO% 0.2 % (0.0-0.8); EOS% 5.7 % (0.0-10.0); HEMATOCRIT 27.7 % (42.0-52.0); HEMOGLOBIN 8.7 g/dL (14.0-18.0); IMM GRAN# 0.02 X1000 (0.0-0.04); IMM GRAN% 0.4 % (0.0-0.5); LYMPH# 1.12 X1000 (1.2-3.4); LYMPH% 21.4 % (20.5-51.1); MCH 29.1 PG (27-31); MCHC 31.4 g/dL (33-37); MCV 92.6 FL (81-99); MONO# 0.67 X1000 (0.11-0.59); MONO% 12.8 % (1.7-9.3); MPV 9.8 FL (7.4-10.4); NEUT# 3.11 X1000 (1.4-6.5); NEUT% 59.5 % (42.2-75.2); PLT 306 X1000 (130-400); RBC 2.99 XMIL (4.7-6.1); RDW 13.6 % (11.5-14.5); WBC 5.23 X1000 (4.8-10.8)
[2019-01-26 06:56] LABS: CALCIUM 8.5 mg/dL (8.8-10.2); CREATININE 2.4 mg/dL (0.7-1.2)
[2019-01-26] MEDS: ADVAIR 250/50 DISKUS INH SCH ×2 (08:31→19:53)
[2019-01-26] MEDS: LASIX PO SCH (10:13)
[2019-01-26] MEDS: ICAR-C PO SCH ×2 (10:13→20:30)
[2019-01-26] MEDS: APRESOLINE PO SCH ×3 (10:13→16:43)
[2019-01-26] MEDS: ISORDIL PO SCH ×3 (10:13→16:43)
[2019-01-26] MEDS: NORVASC PO SCH (10:13)
[2019-01-26] MEDS: CULTURELLE PO SCH ×2 (10:14→20:30)
[2019-01-26] MEDS: LOPRESSOR PO SCH ×2 (10:14→20:29)
[2019-01-26] MEDS: CYMBALTA PO SCH (10:14)
[2019-01-26] MEDS: FISH OIL CONCENTRATE PO SCH (10:14)
[2019-01-26] MEDS: ASPIRIN PO SCH (10:21)
[2019-01-26] MEDS: CASODEX PO SCH (10:22)
[2019-01-26] MEDS: KLOR-CON PO SCH (10:22)
[2019-01-26] MEDS: SODIUM BICARBONATE PO SCH ×2 (10:22→20:28)
--- NOTE | 2019-01-26 12:20 | PROGRESS NOTE ---
DATE: 01/26/2019 SUBJECTIVE: Patient is feeling well. He did have a bowel movement and he is heme-positive again. Had evaluation by Dr. Hoover during the hospitalization 3 weeks ago and at that time, they did not want to pursue endoscopies. We did give him 1 unit of PRBCs transfused yesterday. His hemoglobin is 8.7 this morning, up from 7.7 yesterday. OBJECTIVE: CV: RRR with a 2/6 murmur. Lungs: Clear. Abdomen: Soft, nontender, nondistended. Extremities: No calf tenderness, cords, or edema. Neurologic: Nonfocal. Cranial nerves intact. Mentation is at baseline with very minimal confusion, back to his baseline, doing well. Alert and oriented x3. Lab Data: Shows white count of 5.2, hemoglobin 8.7, platelets 306,000. Sodium 146, potassium 4.0, chloride 109, CO2 26, BUN 20, creatinine 2.4, calcium 8.4. ASSESSMENT: 1. Acute on chronic systolic and diastolic congestive heart failure, now near compensated. 2. Coronary artery disease with history of non-Q-wave myocardial infarction 3 weeks ago. 3. Paroxysmal atrial fibrillation, on chronic low-dose aspirin therapy, not a candidate for other aggressive anticoagulation due to history of falls and gastrointestinal bleeds. 4. Anemia with heme-positive stool evaluated [address] Hoover. 5. Frequent falls. 6. Mild dementia. 7. Chronic kidney disease stage 4, stable, at baseline. 8. Severe osteoarthritis, diffuse. 9. Chronic venous insufficiency with venous stasis dermatitis, left lower extremity, very stable. 10. Moderate aortic stenosis. 11. Mild mitral regurgitation and tricuspid regurgitation. 12. Permanent pacemaker. 13. Hypertension. 14. Hyperlipidemia. 15. History of cerebrovascular disease with prior left carotid endarterectomy in 2009. 16. Obstructive sleep apnea, on CPAP at night. 17. History of prostate cancer with patient stable on Casodex. PLAN: Continue low-dose Lasix 40 mg daily along with potassium supplement. Continue his other home medications. Repeat CBC, BMP, proBNP, and chest x-ray in the morning. Continue aggressive physical therapy. Possible discharge back to rehab in 1 to 2 days. I will discuss the patient tomorrow with Dr. Hoover and see if he has changed his mind on endoscopies regarding the patient, especially in light of his improvement overall with his mentation. cc: Doron Rowe MD
[2019-01-26] MEDS: PROSCAR PO SCH (20:28)
[2019-01-26] MEDS: LIPITOR PO SCH (20:30)
[2019-01-27] MEDS: DUONEB (A & A) INH SCH ×6 (04:03→23:10)
[2019-01-27 06:39] LABS: BASO# 0.01 X1000 (0.0-0.2); BASO% 0.2 % (0.0-0.8); EOS# 0.27 X1000 (0.0-0.7); EOS% 5.5 % (0.0-10.0); HEMOGLOBIN 8.5 g/dL (14.0-18.0); IMM GRAN# 0.02 X1000 (0.0-0.04); IMM GRAN% 0.4 % (0.0-0.5); LYMPH# 0.92 X1000 (1.2-3.4); LYMPH% 18.6 % (20.5-51.1); MCH 28.7 PG (27-31); MCHC 30.4 g/dL (33-37); MCV 94.6 FL (81-99); MONO# 0.64 X1000 (0.11-0.59); MPV 9.5 FL (7.4-10.4); NEUT# 3.08 X1000 (1.4-6.5); NEUT% 62.3 % (42.2-75.2); PLT 267 X1000 (130-400); RBC 2.96 XMIL (4.7-6.1); RDW 13.5 % (11.5-14.5); WBC 4.94 X1000 (4.8-10.8)
[2019-01-27 07:00] LABS: CALCIUM 8.4 mg/dL (8.8-10.2); CREATININE 2.2 mg/dL (0.7-1.2); POTASSIUM 3.8 mmol/L (3.5-5.1)
[2019-01-27] MEDS: ADVAIR 250/50 DISKUS INH SCH ×2 (07:29→19:52)
[2019-01-27] MEDS ORDERED: PROTONIX PO ONE (08:04)
--- NOTE | 2019-01-27 08:44 | PROGRESS NOTE ---
DATE: 01/27/2019 SUBJECTIVE: The patient says he is feeling better, breathing better. No specific complaints. OBJECTIVE: Afebrile, pulse 60, respirations 15, blood pressure 157/64, O2 saturation on 3 L of 94 to 96 percent. CV: RRR with faint murmur. Lungs: Fairly clear. Abdomen: Soft, nontender, nondistended. Extremities: No calf tenderness, cords, or edema. Very mild venous stasis dermatitis changes of the left lopez area. Neurologic: Cranial nerves are intact. No focal deficits. He is laying flat to breathe. White count 4.94, hemoglobin 8.5 down from 8.7 yesterday, platelets 267,000. Sodium 146, potassium 3.8, chloride 107, CO2 of 26, BUN 19, creatinine 2.2, calcium 8.4. ProBNP down from 23,000 on the to 10,000 currently. ASSESSMENT: 1. Acute on chronic systolic and diastolic congestive heart failure, now nearing compensation. 2. Coronary artery disease with history of non-Q-wave myocardial infarction about 3 weeks ago. 3. Paroxysmal atrial fibrillation, on chronic low-dose aspirin therapy, not a candidate for more aggressive anticoagulation due to history of falls and gastrointestinal bleeds. 4. Anemia with persistent heme-positive stools, evaluated by Dr. Hoover 3 weeks ago with recommendation not to pursue additional endoscopies at that time. 5. Frequent falls. 6. Mild dementia. 7. Chronic kidney disease stage 4, stable at baseline. 8. Severe osteoarthritis, diffuse. 9. Chronic venous insufficiency with venous stasis dermatitis, especially left lower extremity. Overall much improved and stable. 10. Moderate aortic stenosis. 11. Mild mitral regurgitation and tricuspid regurgitation. 12. Permanent pacemaker. 13. Hypertension. 14. Hyperlipidemia. 15. Cerebrovascular disease with prior history of left carotid endarterectomy in 2009. 16. Obstructive sleep apnea, on CPAP. 17. Prostate cancer, stable on Casodex. PLAN: We are continuing low-dose Lasix with the patient and his numbers are looking better and, clinically, he is much improved. Continue to work with physical therapy. I have a call into Dr. Hoover to discuss the case regarding whether he needs to undergo endoscopies here in the hospital or go back to rehab and continue to monitor CBC outpatient. We have him on PPIs. He remains on low-dose aspirin. We are fine tuning his blood pressure. cc: Doron Rowe MD
--- NOTE | 2019-01-27 09:01 | Diag Imaging Result Doc PS360 ---
EXAM: CHEST-2 VIEWS 01/27/2019 HISTORY: f/u pulm edema TECHNIQUE: PA and lateral chest COMMENT: There is cardiomegaly. There are bilateral pleural effusions. There is increased interstitial markings consistent with pulmonary edema. This may be slightly improved since 01/25/2019. IMPRESSION: Cardiomegaly pulmonary edema and small pleural effusions. Electronically signed by Jason Mcdaniel 01/27/2019 8:59 AM
[2019-01-27] MEDS ORDERED: LASIX IV ONE (09:31)
[2019-01-27] MEDS: MIRALAX PO SCH (10:46)
[2019-01-27] MEDS: ASPIRIN PO SCH (10:47)
[2019-01-27] MEDS: CULTURELLE PO SCH ×2 (10:47→21:55)
[2019-01-27] MEDS: SODIUM BICARBONATE PO SCH ×2 (10:47→21:55)
[2019-01-27] MEDS: ISORDIL PO SCH ×3 (10:48→17:08)
[2019-01-27] MEDS: APRESOLINE PO SCH ×3 (10:49→17:08)
[2019-01-27] MEDS: FISH OIL CONCENTRATE PO SCH (10:49)
[2019-01-27] MEDS: LOPRESSOR PO SCH ×2 (10:50→21:57)
[2019-01-27] MEDS: NORVASC PO SCH (10:50)
[2019-01-27] MEDS: LASIX PO SCH (10:51)
[2019-01-27] MEDS: KLOR-CON PO SCH (10:51)
[2019-01-27] MEDS: CYMBALTA PO SCH (10:51)
[2019-01-27] MEDS: ICAR-C PO SCH ×2 (10:52→21:55)
[2019-01-27] MEDS: CASODEX PO SCH (10:54)
--- NOTE | 2019-01-27 17:21 | CARDIOLOGY CONSULTATION ---
DATE: 01/27/2019 REASON FOR CONSULT: Broad complex tachycardia. HISTORY OF PRESENT ILLNESS: The patient is an 83-year-old gentleman who was sent to rehab hospital after 2 to 3 weeks hospital stay here at [facility]. He suffered a non-Q-wave myocardial infarction, pneumonia, and worsening in renal function. He improved. He was off antibiotics now at the rehab. He developed increasing shortness of breath. He came to the emergency room and oxygen saturation was low. Today he had a 16 beat run of broad complex tachycardia which is irregular, more suggestive of atrial fibrillation. Patient is otherwise asymptomatic. Does not complain of chest pain. He has some confusion and he does have some dementia as well. REVIEW OF SYSTEMS: A 14 point review of system was done.GI System: There is no history of nausea, vomiting, or diarrhea. There is no history of hematemesis or melena. Central nervous system: No focal weakness to suggest a CVA, TIA. System: There is no dysuria or hematuria. PAST MEDICAL HISTORY: 1. Recent admission with non-Q-wave myocardial infarction 12/30/2018. During his hospitalization he had bilateral pneumonia, thought to be bilateral community-acquired pneumonia. He also had aspiration pneumonia after that. He has history of frequent falls. He has also developed worsening renal function. Subsequently, he was stabilized and discharged home. We decided to manage him medically. He has a significant past cardiac history. He has atrial fibrillation which is paroxysmal. He had recently heme-positive stools with GI blood loss which had stabilized around 8.3. He had a transfusion. He was evaluated by GI as well during his recent hospitalization. 2. Chronic in renal insufficiency stage 4. 3. Venous stasis dermatitis. 4. History of delirium. 5. Systolic heart failure. 6. Mitral regurgitation. 7. Moderate aortic stenosis. 8. Permanent pacemaker implantation. 9. Hypertension. 10. Hyperlipidemia. 11. History of carotid endarterectomy in 2009. 12[address] [employer] permanent pacemaker implantation. 13. History of takotsubo in the past. 14. Atrial fibrillation, permanent, history of atrial flutter. 15. History of GI bleed. 16. Carotid disease status post left carotid endarterectomy 2011. 17. Gout. 18. Osteoarthritis. 19. Sleep apnea. 20. Benign prostatic hypertrophy status post TURP in the past. 21. History of recent hospitalization with hypernatremia. 22. Prostate cancer. PAST SURGICAL HISTORY: 1. Left knee arthroscopy. 2. Right knee in 2005. 3. 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 PHYSICAL EXAMINATION: Vital Signs: Blood pressure was 121/73. Cardiovascular system: Jugular venous pressure was normal. First and second heart sounds were heard. There was no S3 gallop. Respiratory system: Fairly clear. Distant breath sounds. Abdomen: Soft, nontender. There was no guarding or rigidity. Bowel sounds were heard. Central nervous system: Alert and oriented, moving extremities. Detailed central nervous system examination not performed. Extremities: He has mild venous stasis dermatitis on his left lopez. LABORATORY EXAMINATION: Revealed sodium 146, potassium 3.8, BUN 13, creatinine 19, glucose 95, magnesium 1.9. ProBNP on 01/24/2019 was 23,660. Today proBNP was down to 10,090. Hematology: Hemoglobin on 01/25 was 7.7, hematocrit 25, WBC 4.87, platelet count of 293,000. Today hemoglobin is 8.5, hematocrit 28. Stool for occult blood was positive. Blood cultures negative. Chest x- ray: Mild pulmonary edema. CURRENT MEDICATIONS: Include DuoNeb inhalers, amlodipine 10 mg a day, aspirin 81 mg a day, Lipitor 40, Casodex, clonidine p.r.n., Cymbalta, Proscar 5, Lasix 40 mg a day, 40 mg IV was given following transfusion, hydralazine 25 mg p.o. t.i.d., Isordil 60 t.i.d., magnesium hydroxide, metoprolol 50 mg b.i.d., Protonix, Advair Diskus inhalers. ASSESSMENT AND PLAN: 1. Mr. Dionicio Hall is an 83-year-old gentleman who has multiple medical problems, recent admission with non-Q-wave myocardial infarction. He has chronic obstructive pulmonary disease, left ventricular dysfunction, history of permanent atrial fibrillation status post permanent pacemaker implantation in the past on 12/19/2011, [employer] device. History of gastrointestinal bleed. Was recently admitted. Also had pneumonia, worsening renal insufficiency. He is admitted with shortness of breath. From a cardiac standpoint, his broad complex tachycardia is most suggestive of atrial fibrillation. 2. He also received 1 unit transfusion and his hemoglobin is better at 8.5, hematocrit 28 with stools positive occult blood. 3. From a cardiac standpoint, I have not made any changes. His blood pressures have been better controlled. Continue with his current medications. 4. Chronic renal insufficiency has been stable. 5. Atherosclerotic heart disease in the past. He had recent non-Q-wave myocardial infarction. Given his multiple medical problems including renal insufficiency, it was decided to manage him medically, as per patient's choice as well; this was during his recent hospitalization. 6. Diastolic heart failure. Increasing symptoms with anemia. ProBNP is remarkably improved. However, significantly elevated. He is on Lasix. I have not made any other changes. Thank you for the consult. cc: MD Doron Eason MD
[2019-01-27] MEDS ORDERED: KLOR-CON PO ONE (21:00)
[2019-01-27] MEDS: LIPITOR PO SCH (21:55)
[2019-01-27] MEDS: PROSCAR PO SCH (21:55)
--- NOTE | 2019-01-27 22:00 | GASTROENTEROLOGY PROGRESS NOTE ---
DATE: 01/27/2019 CONSULTING PHYSICIAN: Dr. Rowe. REASON FOR CONSULT: Was anemia and heme-positive stool. HISTORY OF PRESENT ILLNESS: This is an 83-year-old gentleman who was recently discharged from the hospital to the rehab. He was re-admitted and was found to have severe anemia and heme-positive stool. During his past admission, he was anemic and because of his other medical conditions it was planned to avoid endoscopic intervention, but he was readmitted and was found to be anemic again. His hemoglobin was 7.7. The lowest has been 7.7 and he was heme-positive stool as well. He has not had any overt signs of GI bleed. He did have elevated BUN and creatinine. His BUN has gone down and overall he is feeling better. Consult was obtained to evaluate him for possible endoscopic evaluation at least EGD. PHYSICAL EXAMINATION: General: When I examine him this afternoon, he was resting comfortably and he woke up from his sleep. Vital signs: Temperature 97.9 degrees, pulse 60 per minute, breathing 20, blood pressure 121/53. He has nasal cannula in place. Chest: Clear to auscultate. Heart: Is audible. No murmur. Abdomen: Is full, soft, nontender. Bowel sounds are audible. LABORATORIES: Reviewed. Hemoglobin was 8.5 today. Hematocrit 28.0. IMPRESSION: Anemia heme-positive stool. Other medical condition including recent non-Q-wave myocardial infarction. He also has history of chronic atrial fibrillation. He is currently on aspirin and I did not see any medications such as anti-platelet or anticoagulation at this point. He is not actively bleeding now. He is hemodynamically stable. PLAN: The plan would be to proceed with at least EGD to get a definitive idea as far as the source of his blood loss. If he is stable enough from Cardiology point of view, to sedate him and okay by anesthesia, he will be scheduled tentatively for tomorrow. I have explained the findings and plan to the patient. He understands and will proceed. cc: MD Doron Howard MD
[2019-01-28] MEDS: DUONEB (A & A) INH SCH ×6 (03:31→23:06)
[2019-01-28] MEDS: PROTONIX PO SCH ×2 (06:05→11:49)
[2019-01-28] MEDS ORDERED: XYLOCAINE-MPF 2% ONE (07:41)
[2019-01-28] MEDS ORDERED: AMIDATE ONE (07:41)
[2019-01-28] MEDS: ADVAIR 250/50 DISKUS INH SCH ×2 (07:55→19:20)
--- NOTE | 2019-01-28 08:38 | ENDOSCOPY OPERATIVE NOTE ---
[facility] ENDOSCOPY OPERATIVE NOTE , PATIENT: Dionicio Hall ADMISSION DATE: 01/28/2019 MR#: [id number] : 1935 EGD PROCEDURE REPORT PROCEDURE DATE: 01/28/2019 SURGEON: Christiano Hoover MD STATUS: inpatient NURSE TRANSPLANT: Eunice Gill and Carmen Atkinson PREOPERATIVE DIAGNOSIS: The patient is a 83 yr old male here for an EGD due to anemia secondary to c hronic blood loss and heme positive stool. PROCEDURE PERFORMED: EGD w/ biopsy MEDICATIONS: Per Anesthesia TOPICAL ANESTHETIC: none CONSENT: The patient understands the risks and benefits of the procedure and understands that these r isks include, but are not limited to: sedation, allergic reaction, infection, perforation and/or bleeding. Alternative means of evaluation and treatment include, among others: physical exam, x-rays, and/or surgical intervention. The patient elects to proceed with this endoscopic procedure. HISORY AND PHYSICAL: 01/28/2019 function. Hand hygiene and appropriate measures for infection prevention was taken. After the risks, benefits and alternatives of the procedure were thoroughly explained, Informed consent was verified, confirmed and timeout was successfully executed by the treatment team. The patient was anesthetized with topical anesthesia and the Pentax [id number] endoscope was introduced through the mouth and advanced to the second portion of the duodenu m. Retroflexion was performed in the stomach and revealed Linear erosions at Cardia, Chad's lesions.. The gastros cope was then slowly withdrawn and removed. ESOPHAGUS: The mucosa of the esophagus appeared normal. STOMACH: Moderate gastritis (inflammation) was found in the gastric fundus. Multiple biopsies were p erformed using cold forceps. Sample sent for histology. There was no evidence of Ulcers, tumors, AVMs or masses. The stomach otherwise appeared normal. DUODENUM: The duodenal mucosa showed no abnormalities. SPECIMENS REMOVED: No ADVERSE EVENTS: There were no complications. POSTOPERATIVE DIAGNOSIS: 1. The mucosa of the esophagus appeared normal 2. Gastritis (inflammation) was found in the gastric fundus; multiple biopsies were performed 3. The stomach otherwise appeared normal 4. The duodenal mucosa showed no abnormalities RECOMMENDATIONS: 1. Resume pre-procedure medications 2. Follow-up biopsy results in 2 weeks 3. Follow up with GI Doctor in 2 months 4. Return to floor when standard parameters are met REPEAT EXAM: Christiano Hoover MD eSigned: Christiano Hoover MD 01/28/2019 8:38 AM cc: Doron Rowe MD PATIENT NAME: Dionicio Hall MR#: [id number]
[2019-01-28] MEDS ORDERED: ASPIRIN PO SCH (09:00)
[2019-01-28] MEDS: KLOR-CON PO SCH (11:46)
[2019-01-28] MEDS: ICAR-C PO SCH ×2 (11:46→21:57)
[2019-01-28] MEDS: CULTURELLE PO SCH ×2 (11:46→21:57)
[2019-01-28] MEDS: CYMBALTA PO SCH (11:47)
[2019-01-28] MEDS: SODIUM BICARBONATE PO SCH ×2 (11:47→21:57)
[2019-01-28] MEDS: LOPRESSOR PO SCH ×2 (11:48→21:57)
[2019-01-28] MEDS: FISH OIL CONCENTRATE PO SCH (11:48)
[2019-01-28] MEDS: LASIX PO SCH (11:48)
[2019-01-28] MEDS: NORVASC PO SCH (11:48)
[2019-01-28] MEDS: ASPIRIN PO SCH (11:48)
[2019-01-28] MEDS: APRESOLINE PO SCH ×3 (11:49→17:36)
[2019-01-28] MEDS: ISORDIL PO SCH ×3 (11:49→17:35)
[2019-01-28] MEDS: CASODEX PO SCH (11:57)
--- NOTE | 2019-01-28 16:57 | PROGRESS NOTE ---
DATE: 01/28/2019 SUBJECTIVE: Patient has undergone EGD earlier today per Dr. Hoover which generally looked okay except for some gastritis found in the gastric fundus. Biopsies were obtained. The patient has also undergone cardiology evaluation yesterday and was having some dysrhythmias which is thought to be related to some brief paroxysmal atrial fibrillation. Followed by Dr. Person with no additional recommendations given on changes in his medications. OBJECTIVE: Vital signs: Afebrile, pulse 62, respirations 16, blood pressure 129/68, O2 saturation on 2 L 96%. CV: RRR. Lungs: Clear. Abdomen: Nontender. Active bowel sounds. Extremities: No calf tenderness, cords, or edema. Neurologic: Nonfocal. Alert and oriented x3. LAB DATA: No lab data repeated today. ASSESSMENT: 1. Acute on chronic systolic and diastolic congestive heart failure. Much improved, nearing compensated. 2. Coronary artery disease with history of non-Q-wave myocardial infarction 3 weeks ago. 3. Paroxysmal atrial fibrillation with no rapid ventricular response and patient on chronic low- dose aspirin therapy, not deemed to be a candidate for more aggressive anticoagulation due to history of falls and gastrointestinal bleeds. 4. Anemia with heme-positive stools with gastritis found on esophagogastroduodenoscopy today and the patient also has had a colonoscopy in the past. 5. Frequent falls. 6. Mild dementia. 7. Chronic kidney disease stage 4, stable at baseline. 8. Severe diffuse osteoarthritis. 9. Chronic venous insufficiency with venous stasis dermatitis, especially involving the left lower extremity. 10. Moderate aortic stenosis. 11. Mild mitral regurgitation and tricuspid regurgitation. 12. Permanent pacemaker. 13. Hypertension. 14. Hyperlipidemia. 15. Cerebrovascular disease with prior history of left carotid endarterectomy in 2009. 16. Obstructive sleep apnea, on CPAP. 17. Prostate cancer, on Casodex. PLAN: We are treating him with Lasix low-dose. We will continue. He is gradually improving with the CHF and he is clear now. He is working with physical therapy here at the hospital and is ambulatory with their help. He had the EGD which failed to show extreme bleeding at this time and we will continue him on PPIs. Continue low-dose aspirin therapy. Continue blood pressure control and rate control medications as he is on. Plan on discharge back to the rehab facility tomorrow. cc: Doron Rowe MD
[2019-01-28] MEDS: LIPITOR PO SCH (21:57)
[2019-01-28] MEDS: PROSCAR PO SCH (21:58)
[2019-01-29] MEDS: DUONEB (A & A) INH SCH ×2 (03:34→07:25)
[2019-01-29] MEDS: PROTONIX PO SCH (05:37)
[2019-01-29 06:20] LABS: BASO# 0.01 X1000 (0.0-0.2); BASO% 0.2 % (0.0-0.8); EOS# 0.33 X1000 (0.0-0.7); EOS% 5.5 % (0.0-10.0); HEMATOCRIT 27.5 % (42.0-52.0); HEMOGLOBIN 8.4 g/dL (14.0-18.0); LYMPH# 1.14 X1000 (1.2-3.4); LYMPH% 18.9 % (20.5-51.1); MCH 28.9 PG (27-31); MCHC 30.5 g/dL (33-37); MCV 94.5 FL (81-99); MONO# 0.76 X1000 (0.11-0.59); MONO% 12.6 % (1.7-9.3); MPV 9.7 FL (7.4-10.4); NEUT# 3.78 X1000 (1.4-6.5); NEUT% 62.8 % (42.2-75.2); PLT 225 X1000 (130-400); RBC 2.91 XMIL (4.7-6.1); WBC 6.02 X1000 (4.8-10.8)
[2019-01-29 06:41] LABS: POTASSIUM 3.8 mmol/L (3.5-5.1)
[2019-01-29 06:42] LABS: CALCIUM 8.7 mg/dL (8.8-10.2); CREATININE 2.4 mg/dL (0.7-1.2)
[2019-01-29] MEDS: ADVAIR 250/50 DISKUS INH SCH (07:24)
[2019-01-29 07:58] VITALS: BP 139/65
--- NOTE | 2019-01-29 09:08 | DISCHARGE SUMMARY ---
ADMISSION DATE: 01/23/2019 DISCHARGE DATE: 01/29/2019 DIAGNOSES: 1. Acute on chronic systolic and diastolic congestive heart failure, now compensated. 2. Coronary artery disease with history of non-Q-wave myocardial infarction about 1 month ago, requiring hospitalization at that time as well. 3. Paroxysmal atrial fibrillation with no rapid ventricular response in a patient on chronic low- dose aspirin, not deemed a candidate for more aggressive anticoagulation due to history of falls and gastrointestinal bleeds. 4. Anemia with history of heme-positive stools and findings of gastritis on esophagogastroduodenoscopy during this hospitalization per Dr. Hoover, notably the patient has had colonoscopy in the past few years. 5. Mild gastritis in the fundus of the stomach. 6. Frequent falls. 7. Mild dementia. 8. Chronic kidney disease stage 4, stable at baseline creatinine around 2.4. 9. Severe diffuse osteoarthritis with the patient being on low-dose Cymbalta for this. 10. Chronic venous insufficiency of lower extremities bilaterally with venous stasis dermatitis of left lower extremity, mild. 11. Moderate aortic stenosis. 12. Mild mitral regurgitation and tricuspid regurgitation. 13. Permanent pacemaker. 14. Hypertension. 15. Hyperlipidemia. 16. Cerebrovascular disease with history of prior left carotid endarterectomy in 2009. 17. Obstructive sleep apnea on CPAP at night. 18. Prostate cancer, stable on Casodex. CONSULTANTS: 1. Dr. Person of cardiology. 2. Dr. Hoover of gastroenterology. REASON FOR ADMISSION AND HOSPITAL COURSE: The patient is an 83-year-old white male, followed in my medical practice, who had suffered an NM about 1 month ago. He was in the hospital then, and he became prerenal on that occasion. He was discharged out to rehab and did well initially, but then began having some shortness of breath and came back into the hospital, and chest x-ray showed pulmonary edema, and his proBNP was in the 26,000 range. He was slowly diuresed during this hospitalization with Lasix. His hemoglobin had trended downward to 7.7, and we gave him 1 unit of PRBCs transfused. Dr. Hoover was consulted and saw the patient, did EGD which showed mild gastritis. We kept him on PPI in the form of Protonix 40 mg daily. He had no signs of acute major bleeding. He was maintained on his aspirin for his atrial fibrillation, and he is not deemed a candidate for more aggressive anticoagulation due to prior history of falls and gastrointestinal bleeds. Dr. Person saw the patient for some mild PAF and did not make any changes in his home medication regimen in that regard. The patient slowly improved with chest x-ray, and clinically his lungs were clear by discharge and he was regular rate and rhythm. Lower extremities without edema. Physical therapy worked with strengthening and ambulation during hospitalization. He was improved there, and he was deemed able to be returned to rehab by 01/29/2019. DIAGNOSTIC DATA: Pertinent labs at discharge were white count of 6, hemoglobin 8.4 and stable, platelets 225,000. INR on admission 1.06, PTT 30.4. ABGs acceptable on 2 to 3 liters during the early part of the hospitalization. Discharge BMP showed sodium 143, potassium 3.8, chloride 106, CO2 of 28, BUN 19, creatinine 2.4, glucose 95. Chest x-ray was showing good improvement in CHF pattern. PROCEDURES DURING HOSPITALIZATION: The procedure list during the hospitalization includes: 1. Chest x-rays on numerous occasions, which showed improving slow and gradual of the pulmonary edema pattern. 2. Also, esophagogastroduodenoscopy showed mild gastritis at the fundus, otherwise negative. DISCHARGE MEDICATIONS: His discharge medications will be Lipitor 40 mg p.o. every night at bedtime, Icar-C 1 p.o. b.i.d., Isordil 60 mg p.o. t.i.d., omega-3 fatty acids 1000 mg p.o. every a.m., Proscar 5 mg p.o. every p.m., Casodex 50 mg p.o. daily, Advair 250/50 two puffs daily, aspirin 81 mg p.o. daily, lactobacilli 1 p.o. b.i.d., Cymbalta 30 mg p.o. daily, Lopressor 50 mg p.o. b.i.d., MiraLAX 17 grams in 8 ounces of water every other day, Norvasc 10 mg p.o. daily, Robitussin DM 10 mL p.o. every 4 hours p.r.n. cough, sodium bicarbonate 325 mg p.o. b.i.d., Tylenol p.r.n., hydralazine 25 mg p.o. t.i.d., clonidine 0.1 mg p.o. t.i.d. p.r.n. markedly elevated blood pressures, DuoNeb nebulizer treatments every 4 hours while awake, Klor-Con 20 mEq p.o. daily, Lasix 40 mg p.o. every a.m., milk of magnesia 30 mL p.o. daily p.r.n. constipation, Protonix 40 mg p.o. every a.m., aspirin 81 mg p.o. daily, Zofran 4 mg p.o. every 6 hours p.r.n. nausea or vomiting. cc: Doron Rowe MD
[2019-01-29] MEDS: SODIUM BICARBONATE PO SCH (09:16)
[2019-01-29] MEDS: ASPIRIN PO SCH (09:16)
[2019-01-29] MEDS: ICAR-C PO SCH (09:16)
[2019-01-29] MEDS: LOPRESSOR PO SCH (09:16)
[2019-01-29] MEDS: CYMBALTA PO SCH (09:17)
[2019-01-29] MEDS: NORVASC PO SCH (09:17)
[2019-01-29] MEDS: KLOR-CON PO SCH (09:17)
[2019-01-29] MEDS: ISORDIL PO SCH (09:17)
[2019-01-29] MEDS: LASIX PO SCH (09:17)
[2019-01-29] MEDS: CULTURELLE PO SCH (09:17)
[2019-01-29] MEDS: FISH OIL CONCENTRATE PO SCH (09:18)
[2019-01-29] MEDS: CASODEX PO SCH (09:18)
[2019-01-29] MEDS: APRESOLINE PO SCH (09:18)
[2019-01-29] MEDS: MIRALAX PO SCH (09:19)
== END 2019-01-29 10:37 | DRG 280 ==
LOC: SUPCPDRO → ED 05:42 → 4N 09:09
PROVIDERS: ADMIT Family Medicine; ATTEND Family Medicine
CPT/HCPCS: 36430; 71010; 71020; 71045; 71046; 80048; 80053; 81001; 82270; 82805; 83605; 83735; 83880; 84484; 85025; 85610; 85730; 86850; 86900; 86901; 86920; 87040; 88305; 88312; 93005; 94640; 94761; 96374; 97110; 97116; 97162; 97530; 99285; A9270; C9113; J1940; J7040; P9016; S0138; S0164